=== PATIENT | female | born 1980 | race Caucasian/White ===

== ENCOUNTER → 2025-01-09 | Outpatient (CLI) | payer OTHER, SELFPAY ==
[2025-01-12 07:46] LABS: HPV Reflexed? NOT INDICATED
== END | disposition home or self-care (01) ==
LOC: LABSPEC 10:39
PROVIDERS: Referring Provider Obstetrics & Gynecology; Visit Provider Obstetrics & Gynecology
DX: Z87.410 Personal history of cervical dysplasia (principal)
CPT/HCPCS: 88175; G0145

== ENCOUNTER → 2025-01-10 | Outpatient (CLI) | payer OTHER, SELFPAY ==
[2025-01-10 16:01] LABS: Absolute Lymphocyte Count 3.72 X10^3/uL (0.83-4.51); Absolute Neutrophil Count 7.6 X10^3/uL (2.0-7.7); Basophil# 0.14 X10^3/uL; Basophil% 1.1 % (0-1); Eosinophil# 0.23 X10^3/uL; Eosinophils% 1.9 % (0-5); Hematocrit 44.1 % (37-47); Lymphocyte # 3.72 X10^3/ul (0.83-4.51); Lymphocyte % 30.3 % (19-41); Mean Corpuscular Hgb 31.8 pg (27.0-32.0); Mean Corpuscular Volume 93.4 fL (81-99); Mean Platelet Vol. 12.1 fl (6.2-12.0); Monocyte# 0.61 X10^3/uL; NRBC Flagged by Analyzer 0 % (0-5); Neutrophil # 7.55 X10^3/uL (2.7-7.7); Neutrophil % 61.4 % (47-70); Platelet Count 176 K/mm3 (150-450); RBC Distribution Width CV 13.5 % (11.6-14.6); RBC Distribution Width SD 46.4 fl (35.1-43.9); Red Blood Count 4.72 M/mm3 (4.2-5.4); White Blood Count 12.3 K/mm3 (4.4-11.0)
[2025-01-10 16:35] LABS: Hemoglobin A1c 5.4 % (<=5.6)
[2025-01-10 16:58] LABS: ALB/GLOB Ratio 1.9 RATIO (0.9-2.4); AST(SGOT) 18 U/L (<=31); Alanine Aminotransfer ALT/SGPT 14 U/L (<=34); Albumin, Serum 4.7 g/dL (3.5-5.0); Alkaline Phosphatase 49 U/L (35-104); Anion Gap 12 (5-15); BUN 9 mg/dL (4-19); BUN/Creat Ratio 10.2 RATIO (10-20); Calcium,Total 9.7 mg/dL (7.6-11.0); Carbon Dioxide 24.6 mmol/L (21.0-32.0); Chloride 102 mmol/L (98-108); Creatinine, Serum 0.92 mg/dL (0.70-1.20); EST Glomerular Filtration Rate 78 (>60); Globulin 2.5 g/dL (2.2-4.2); Glucose 95 mg/dL (70-99); Potassium 4.3 mmol/L (3.3-5.1); Protein, Total 7.2 g/dL (5.9-8.4); Sodium Level 139 mmol/L (133-145); Total Bilirubin 0.45 mg/dL (0.00-1.30); Vitamin D,25 Hydroxy 75.6 ng/mL (30-100)
[2025-01-10 18:26] LABS: Cholesterol 177 mg/dL (<=200); High Density Lipoprotein 47 mg/dL; Low Density Lipoprotein Calc. 116 mg/dL; Triglycerides 68 mg/dL; Very Low Density Lipoprotein 14 mg/dL (5-40); cholesterol:hdl ratio screen 3.76
== END | disposition home or self-care (01) ==
LOC: BWCLAB 11:50
PROVIDERS: Referring Provider Obstetrics & Gynecology; Visit Provider Obstetrics & Gynecology
DX: I42.2 Other hypertrophic cardiomyopathy (principal); Z13.29 Encounter for screening for other suspected endocrine disorder; Z13.1 Encounter for screening for diabetes mellitus; Z13.220 Encounter for screening for lipoid disorders; Z13.21 Encounter for screening for nutritional disorder
CPT/HCPCS: 36415; 80053; 80061; 82306; 83036; 84443; 85025

== ENCOUNTER 2025-02-03 06:31 | Day surgery (SDC) | payer OTHER, SELFPAY ==
--- NOTE | 2025-02-02 15:47 | PAT.ANESEVAL ---
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 When Was Last Pacemaker Check QUESTION #4 FULL TEXT: You/Your Family Experience fever (hyperthermia) with Anesthesia Last Oral Intake Last Oral intake: Last Oral Intake NPO since Meds taken in AM with sips of water? 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 Female Yes 02/01/25 14:11 HX of Motion Sickness Yes 02/01/25 14:11 HX of N/V After Surgery No 02/01/25 14:11 Non-Smoker Yes 02/01/25 14:11 Duration of Surgery greater No 02/01/25 14:11 than 60 minutes Number of Risk Factors 3 02/01/25 14:11 PONV Score Moderate Risk 02/01/25 14:11 Height & Weight Height & Weight: Anesthesia: Height & Weight Height 5 ft 1 in 01/11/25 08:42 Respiratory Assessment Respiratory Assessment - motor vehicle examiner: Respiratory Tract Infection Hx - motor vehicle examiner Hx Respiratory Tract Infection No 02/01/25 14:11 STOP Sleep Apnea STOP Sleep Apnea - motor vehicle examiner: STOP Sleep Apnea - motor vehicle examiner Hx Hypertension No 02/01/25 14:11 Hx Sleep Apnea No 02/01/25 14:11 CPAP BIPAP Do you snore loudly (louder No 02/01/25 14:11 than talking or can be heard Do you often feel tired/ No 02/01/25 14:11 fatigued/ sleepy during daytime? Has anyone observed you stop No 02/01/25 14:11 breathing during sleep? STOP Results Negative 02/01/25 14:11 QUESTION #5 FULL TEXT : Do you snore loudly (louder than talking or can be heard through closed doors)? 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 Specify any problems Hx of Preganancy in last 3 No 02/01/25 14:11 Months Nurse Filling Out Transfusion VCHRISTIN 02/01/25 14:11 & Questions: Date: 02/01/25 02/01/25 14:11 Time: 14:12 02/01/25 14:11 Patient unable to answer at this time (ie. confused, unrespo /Reproduction History /Reproductive History - motor vehicle examiner: /Reproductive Hx- motor vehicle examiner Hx Now No 02/01/25 14:11 Gestational Age (in weeks): EDC: Hx Hx Para Hx Section SAB No 02/01/25 14:11 [facility] Medical History (Updated 02/01/25 @ 14:11 by Hoa Bah) Wears contact lenses Wears glasses Post-menopausal Alcohol use Former smoker Cardiology follow-up encounter History of echocardiogram Hypertrophic cardiomyopathy H/O headache Home Medications ?Medication ?Instructions ?Recorded ?Last Taken ?Type omega-3 fatty acids 1,000 mg 1,000 mg PO QDAY 01/04/25 01/26/25 History capsule turmeric 400 mg capsule 400 mg PO DAILY 01/04/25 01/26/25 History vitamin D3 1,250 mcg (50,000 1 cap PO DAILY 01/04/25 01/26/25 History unit)-vitamin K2 200 mcg capsule Saccharomyces boulardii 250 mg 250 mg PO QDAY 01/11/25 Unknown History capsule (Daily Probiotic (S. boulardii)) multivitamin (Daily Multi-Vitamin 1 tab PO DAILY 02/01/25 Unknown History tablet) Allergy/AdvReac Type Severity Reaction Status Date / Time No Known Allergies Allergy Verified 02/01/25 14:02 Family History Mother Colon cancer Cancer of appendix, Onset Age: 57 Father Depression Hypertrophic cardiomyopathy Brother Hypertrophic cardiomyopathy Sister Hypertrophic cardiomyopathy Brother Hypertrophic cardiomyopathy Sister Hypertrophic cardiomyopathy Surgical History (Updated 02/01/25 @ 14:11 by Hoa Bah) History of bunionectomy Hx of hysterectomy Social History Smoking Status: Former smoker alcohol intake: current alcohol intake frequency: holidays/special occasions only substance use type: does not use what type of physical activity do you participate in: running and weight training frequency: 3-4 times per week Audit: Pertinent Findings Pertinent Findings EKG Perinent findings: October 15, 2022. Normal sinus rhythm Echo (EF%) pertinent findings: January 22, 2022. EF 60%. No aortic stenosis noted. Recommendation Anesthesia Recommendation Anesthesia recommendation: OPTIMIZED for anesthesia
[2025-02-03] VITALS (7 sets, daily range): BP systolic 105–124; BP diastolic 70–84; PULSE 63–75; RESP 16; TEMP 36.4–37.2; O2SAT 99–100; BMI 27.1
--- NOTE | 2025-02-03 06:36 | PRE.ANES_ITS ---
ASA Classification* ASA Classification ASA Classification: 2 Assessment & Plan Anesthesia* Anesthesia Assessment Anesthesia Assessment: Discussed sedation and/or anesthesia options, risks, benefits, and alternatives with patient/parents/legal guardian/POA. Questions invited. The patient/parents/legal guardian/POA seems to understand and agrees to proceed with anesthesia plan. Reviewed the physical assessment, medical history, allergy history and patient home medications list prior to surgery/procedure/anesthetic and documented any changes. Performed airway and anesthesia risk assessments. Anesthesia Type Anesthesia Type: MAC Anesthesia Focused Assessment* Airway Assessment Mouth opens: >3 cm Mallampati Score: II Focused Labs Anesthesia Preop lab: CBC WBC 12.3 K/mm3 (4.4-11.0) H 01/10/25 11:50 5 RBC 4.72 M/mm3 (4.2-5.4) 01/10/25 11:50 01/10/25 Hgb 15.0 g/dL (12.0-15.0) 01/10/25 11:50 01/10/25 Hct 44.1 % (37-47) 01/10/25 11:50 01/10/25 Plt Count 176 K/mm3 (150-450) 01/10/25 11:50 01/10/25 CHEMISTRY Potassium 4.3 mmol/L (3.3-5.1) 01/10/25 11:50 01/10/25 Sodium 139 mmol/L (133-145) 01/10/25 11:50 01/10/25 BUN 9 mg/dL (4-19) 01/10/25 11:50 01/10/25 Creatinine 0.92 mg/dL (0.70-1.20) 01/10/25 11:50 01/10/25 Glucose 95 mg/dL (70-99) 01/10/25 11:50 01/10/25 TSH 0.650 uIU/mL (0.300-4.200) 01/10/25 11:50 12/29 11/22 COAG Pre-Assessment Diagnosis/Proposed Procedure Planned Operative Procedure(s): COLONOSCOPY Anesthesia History Anesthesia History - medical transcription editor: Anesthesia History - medical transcription editor Hx Hospitalization No 02/01/25 14:11 Any Problems With Anesthesia No 02/01/25 14:11 Cholinesterase deficiency No 02/01/25 14:11 You/Your Family Experience No 02/01/25 14:11 fever (hyperthermia) with Relationship Recent Exposure to Contagious Disease Does patient have nerve No 02/01/25 14:11 stimulator Patient instructed to have device shut off --Does patient have Pacemaker or ICD? When Was Last Pacemaker Check QUESTION #4 FULL TEXT: You/Your Family Experience fever (hyperthermia) with Anesthesia Last Oral Intake Last Oral intake: Last Oral Intake NPO since Meds taken in AM with sips of water? Meds patient instructed to take am of surgery PONV PONV - medical transcription editor: PONV - medical transcription editor Female Yes 02/01/25 14:11 HX of Motion Sickness Yes 02/01/25 14:11 HX of N/V After Surgery No 02/01/25 14:11 Non-Smoker Yes 02/01/25 14:11 Duration of Surgery greater No 02/01/25 14:11 than 60 minutes Number of Risk Factors 3 02/01/25 14:11 PONV Score Moderate Risk 02/01/25 14:11 Height & Weight Height & Weight: Anesthesia: Height & Weight Height 5 ft 1 in 01/11/25 08:42 Respiratory Assessment Respiratory Assessment - medical transcription editor: Respiratory Tract Infection Hx - medical transcription editor Hx Respiratory Tract Infection No 02/01/25 14:11 STOP Sleep Apnea STOP Sleep Apnea - medical transcription editor: STOP Sleep Apnea - medical transcription editor Hx Hypertension No 02/01/25 14:11 Hx Sleep Apnea No 02/01/25 14:11 CPAP BIPAP Do you snore loudly (louder No 02/01/25 14:11 than talking or can be heard Do you often feel tired/ No 02/01/25 14:11 fatigued/ sleepy during daytime? Has anyone observed you stop No 02/01/25 14:11 breathing during sleep? STOP Results Negative 02/01/25 14:11 QUESTION #5 FULL TEXT : Do you snore loudly (louder than talking or can be heard through closed doors)? Tobacco Use History Tobacco Use History - medical transcription editor: Tobacco Use History - medical transcription editor Tobacco Use Smoking Status Former smoker 02/01/25 14:11 Hx Tobacco Use No 02/01/25 14:11 Years Smoking Packs Smoked per Day Smoking Cessation Date was Yes - quit smoking within 15 02/01/25 14:11 within the last 15 years years Hx Smoking Cessation Date Hx Smoking Cessation Counseling Hematologic Medial History Hematologic Hx - medical transcription editor: Hematologic Medical Hx - slip sheeter Hx of Blood Transfusion No 02/01/25 14:11 Hx of Transfusion in last 3 No 02/01/25 14:11 Months Date of Last Transfusion (if within last 3 months) Ever experience any problems No 02/01/25 14:11 with transfusion(s)? Specify any problems Hx of Preganancy in last 3 No 02/01/25 14:11 Months Nurse Filling Out Transfusion VCHRISTIN 02/01/25 14:11 & Questions: Date: 02/01/25 02/01/25 14:11 Time: 14:12 02/01/25 14:11 Patient unable to answer at this time (ie. confused, unrespo /Reproduction History /Reproductive History - medical transcription editor: /Reproductive Hx- medical transcription editor Hx Now No 02/01/25 14:11 Gestational Age (in weeks): EDC: Hx Hx Para Hx Section SAB No 02/01/25 14:11 PFSH Medical History Wears contact lenses Wears glasses Post-menopausal Alcohol use Former smoker Cardiology follow-up encounter History of echocardiogram Hypertrophic cardiomyopathy H/O headache Home Medications ?Medication ?Instructions ?Recorded ?Last Taken ?Type omega-3 fatty acids 1,000 mg 1,000 mg PO QDAY 01/04/25 01/26/25 History capsule turmeric 400 mg capsule 400 mg PO DAILY 01/04/25 History vitamin D3 1,250 mcg (50,000 1 cap PO DAILY 01/04/25 0 01/26/25 History unit)-vitamin K2 200 mcg capsule Saccharomyces boulardii 250 mg 250 mg PO QDAY 01/11/25 Unknown History capsule (Daily Probiotic (S. boulardii)) multivitamin (Daily Multi-Vitamin 1 tab PO DAILY 02/01 Unknown History tablet) Allergy/AdvReac Type Severity Reaction Status Date / Time No Known Allergies Allergy Verified 02/01/25 14:02 Family History Mother Colon cancer Cancer of appendix, Onset Age: 57 Father Depression Hypertrophic cardiomyopathy Brother Hypertrophic cardiomyopathy Sister Hypertrophic cardiomyopathy Brother Hypertrophic cardiomyopathy Sister Hypertrophic cardiomyopathy Surgical History History of bunionectomy Hx of hysterectomy Social History Smoking Status: Former smoker alcohol intake: current alcohol intake frequency: holidays/special occasions only substance use type: does not use what type of physical activity do you participate in: running and weight training frequency: 3-4 times per week Review of Systems (Anesthesia) ROS Narrative System reviewed and no additional complaints, except as documented.
--- OUTSIDE RECORDS SUMMARY | 2025-02-03 06:36 | XMS RPT_ITS | CCD ---
Author Organization [facility] Care Team Providers Care Saw Grinder Name Role Phone DIAZ, THAN Unavailable Unavailable ORIN, HEIDI Unavailable Unavailable DIAZ, THAN Unavailable Unavailable ORIN, HEIDI Unavailable Unavailable ORIN, HEIDI Unavailable Unavailable Josee, Shreyas L Unavailable Unavailable Unavailable Josee TOPOLOGY PROFESSOR-ACTUARIAL ANALYSTShreyas Primary Care Provider [phone] Josee TOPOLOGY PROFESSOR-ACTUARIAL ANALYSTShreyas L Unavailable JOSEE, SHREYAS L Primary Care Unavailable JOSEE, SHREYAS L Primary Care Unavailable JOSEE, SHREYAS L Attending Unavailable JOSEE, SHREYAS L Primary Care Unavailable JOSEE, SHREYAS L Primary Care Unavailable JOSEE, SHREYAS L Referring Unavailable JOSEE, SHREYAS L Attending Unavailable JOSEE, SHREYAS L Primary Care Unavailable JOSEE, SHREYAS L Referring Unavailable Aby STERLING, Dr. Cabrera Attending Provider Dr. Deborah Badillo MD Referring Provider Arnulfo STERLING, Dr. Jack Last Attending Provider Deborah Badillo Attending Unavailable Deborah Badillo Referring Unavailable Deborah Badillo Attending Unavailable Deborah Badillo Referring Unavailable Jack Arredondo Referring Unavailable Deborah Badillo Primary Care Unavailable Jack Arredondo Attending Unavailable Jack Arredondo Attending Unavailable Deborah Badillo Attending Unavailable Allergies Allergy Classification Reported Allergen(s) Allergy Type Date of Onset Reaction(s) Facility (2 sources) ALLERGIES NOT ON FILE; Translations: [ALLERGIES NOT ON FILE] Propensity to adverse reactions (disorder) [facility] Medications Current Medications Medication Drug Class(es) Dates Sig (Normalized) Sig (Original) fexofenadine hydrochloride 180 mg oral tablet (1 source) Histamine-1 Receptor Antagonist Start: 05-21-2023 End: 05-20-2024 take 1 tablet by mouth once daily fexofenadine (Noreen) 180 mg tablet Indications: Urticaria Take 1 tablet (180 mg) by mouth once daily. 30 tablet 5 05/21/2023 05/20/2024 Active Edison-3 Fatty Acids 1,000 mg capsule (3 sources) Start: 01-04-2025 take 1 capsule by mouth once daily Edison-3 Fatty Acids 1,000 mg capsule Active 1000 mg PO daily January 04, 2025 12:00am saccharomyces boulardii 250 mg oral capsule (3 sources) Start: 01-11-2025 take 1 capsule by mouth once daily Saccharomyces Boulardii (Daily Probiotic (S. Boulardii)) 250 mg capsule Active 250 mg PO daily January 11, 2025 12:00am Turmeric extract (3 sources) Start: 01-04-2025 Turmeric 400 mg capsule Active mg PO January 04, 2025 12:00am Vitamin D3-Vitamin K2 (3 sources) Start: 01-04-2025 Vitamin D3-Vitamin K2 1,250-200 mcg capsule Active NMA PO January 04, 2025 12:00am Completed/Discontinued Medications Medication Drug Class(es) Dates Sig (Normalized) Sig (Original) 12 hr buPROPion hydrochloride 150 mg extended release oral tablet (2 sources) Aminoketone Start: 03-27-2022 take 1 tablet by mouth once daily buPROPion HCl ER (SR) 150 MG Oral Tablet Extended Release 12 Hour Take 1 tablet daily Quantity: 30 Refills: 2 Ordered: 27-Mar-2022 Shreyas Campbell Start : 27-Mar-2022 Active Multi-Vitamins TABS (8 sources) Multi-Vitamins TABS Quantity: 0 Refills: 0 Ordered: 31-Dec-2021 DO Active phentermine hydrochloride 37.5 mg oral capsule (4 sources) Sympathomimetic Amine Anorectic Start: 01-28-2022 take 1 capsule by mouth once daily before breakfast Phentermine HCl - 37.5 MG Oral Capsule TAKE 1 CAPSULE EVERY MORNING BEFORE BREAKFAST. Quantity: 30 Refills: 0 Ordered: 21-Apr-2022 Shreyas Campbell Start : 28-Jan-2022 Active Problems Active Problems Problem Classification Problem Date Documented Da te Episodic/Chronic Administrative/social admission (8 sources) Patient encounter status; Translations: [Other specified counseling] 01-11-2025 Episodic Allergic reactions (3 sources) Urticaria; Translations: [Urticaria, unspecified] Onset: 05-21-2023 05-21-2023 Episodic Anxiety disorders (2 sources) Anxiety; Translations: [Anxiety state, unspecified] Chronic Coma; stupor; and brain damage (3 sources) Daytime somnolence; Translations: [Somnolence] Onset: 05-21-2023 05-21-2023 Episodic Nutritional deficiencies (3 sources) Vitamin B deficiency; Translations: [Vitamin B deficiency, unspecified] Onset: 05-20-2023 05-20-2023 Episodic Other female genital disorders (1 source) Personal history of cervical dysplasia; Translations: [Personal history of cervical dysplasia] Onset: 01-12-2025 Episodic Other injuries and conditions due to external causes (2 sources) Injury of hand; Translations: [Hand, except finger injury] Episodic Other lower respiratory disease (4 sources) Snoring; Translations: [Snoring] 05-21-2023 Episodic Other lower respiratory disease (2 sources) Snoring; Translations: [Snoring] Onset: 05-21-2023 Episodic Other non-traumatic joint disorders (8 sources) Hip pain; Translations: [Pain in joint, pelvic region and thigh] Episodic Other nutritional; endocrine; and metabolic disorders (2 sources) Body mass index 25-29 - overweight; Translations: [Body Mass Index 27.0-27.9, adult] Episodic Other nutritional; endocrine; and metabolic disorders (2 sources) Overweight in adulthood with body mass index of 25 or more but less than 30; Translations: [Body Mass Index 27.0-27.9, adult] Episodic Other screening for suspected conditions (not mental disorders or infectious disease) (1 source) Encounter for screening mammogram for malignant neoplasm of breast; Translations: [Encounter for screening mammogram for malignant neoplasm of breast] Onset: 01-09-2025 Episodic Other upper respiratory infections (8 sources) Acute upper respiratory infection; Translations: [Acute upper respiratory infections of unspecified site] Episodic Elvira-; endo-; and myocarditis; cardiomyopathy (except that caused by tuberculosis or sexually transmitted disease) (12 sources) Hypertrophic cardiomyopathy; Translations: [Other hypertrophic cardiomyopathy] Onset: 11-10-2022 11-10-2022 Chronic Residual codes; unclassified (8 sources) Intolerant of ambient temperature; Translations: [Other general symptoms] Episodic Residual codes; unclassified (8 sources) Family history of cancer of colon; Translations: [Family history of malignant neoplasm of digestive organs] 01-09-2025 Episodic Substance-related disorders (1 source) Nicotine dependence; Translations: [Nicotine dependence, cigarettes, uncomplicated] Onset: 06-22-2018 05-20-2023 Chronic Unclassified (6 sources) Encounter for screening for malignant neoplasm of colon; Translations: [Z12.11 - Encounter for screening for malignant neoplasm of colon] Unclassified (3 sources) R06.83 - Snoring Past or Other Problems Problem Classification Problem Date Documented Da te Episodic/Chronic Malaise and fatigue (2 sources) Other fatigue; Translations: [Other fatigue] Onset: 11-21-2022 Episodic Other nutritional; endocrine; and metabolic disorders (9 sources) Weight gain; Translations: [Abnormal weight gain] Onset: 11-10-2022 11-10-2022 Episodic Results Test Name Value Interpretation Reference Range Facility MR/Yasmine 02-02-2025 MR/PAT.[facility] Medical Records Department [address] [place] [address] PAT - Anesthesia 02/02/25 1547 MR#: [id number] Acct: [id number] Name: MAYO HORTA Rep #: [id number] : 1980 44 From: Juan Luis Bullock MD PCP: Dr. 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 When Was Last Pacemaker Check QUESTION #4 FULL TEXT: You/Your Family Experience fever (hyperthermia) with Anesthesia Last Oral Intake Last Oral intake: Last Oral Intake NPO since Meds taken in AM with sips of water? Meds patient instructed to take am of surgery PONV PONV - sustainability project coordinator: PONV - sustainability project coordinator Female Yes 02/01/25 14:11 HX of Motion Sickness Yes 02/01/25 14:11 HX of N/V After Surgery No 02/01/25 14:11 Non-Smoker Yes 02/01/25 14:11 Duration of Surgery greater No 02/01/25 14:11 than 60 minutes Number of Risk Factors 3 02/01/25 14:11 PONV Score Moderate Risk 02/01/25 14:11 Height Weight Height Weight: Anesthesia: Height Weight Height 5 ft 1 in 01/11/25 08:42 Respiratory Assessment Respiratory Assessment - sustainability project coordinator: Respiratory Tract Infection Hx - sustainability project coordinator Hx Respiratory Tract Infection No 02/01/25 14:11 STOP Sleep Apnea STOP Sleep Apnea - sustainability project coordinator: STOP Sleep Apnea - sustainability project coordinator Hx Hypertension No 02/01/25 14:11 Hx Sleep Apnea No 02/01/25 14:11 CPAP BIPAP Do you snore loudly (louder No 02/01/25 14:11 than talking or can be heard Do you often feel tired/ No 02/01/25 14:11 fatigued/ sleepy during daytime? Has anyone observed you stop No 02/01/25 14:11 breathing during sleep? STOP Results Negative 02/01/25 14:11 QUESTION #5 FULL TEXT : Do you snore loudly (louder than talking or can be heard through closed doors)? 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 Specify any problems Hx of Preganancy in last 3 No 02/01/25 14:11 Months Nurse Filling Out Transfusion VENUS 02/01/25 14:11 Questions: Date: 02/01/25 02/01/25 14:11 Time: 14:12 02/01/25 14:11 Patient unable to answer at this time (ie. confused, unrespo /Reproduction History /Reproductive History - sustainability project coordinator: /Reproductive Hx- sustainability project coordinator Hx Now No 02/01/25 14:11 Gestational Age (in weeks): EDC: Hx Hx Para Hx Section SAB No 02/01/25 14:11 [facility] Medical History (Updated 02/01/25 @ 14:11 by Hoa Bah) Wears contact lenses Wears glasses Post-menopausal Alcohol use Former smoker Cardiology follow-up encounter History of echocardiogram Hypertrophic cardiomyopathy H/O headache Home Medications ???Medication ???Instructions ???Recorded ???Last Taken ???Type omega-3 fatty acids 1,000 mg 1,000 mg PO QDAY 01/04/25 01/26/25 History capsule turmeric 400 mg capsule 400 mg PO DAILY 01/04/25 01/26/25 History vitamin D3 1,250 mcg (50,000 1 cap PO DAILY 01/04/25 01/26/25 H istory unit)-vitamin K2 200 mcg capsule Saccharomyces boulardii 250 mg 250 mg PO QDAY 01/11/25 Unknown Hi story capsule (Daily Probiotic (S. boulardii)) multivitamin (Daily Multi-Vitamin 1 tab PO DAILY 02/01/25 Unknown H istory tablet) Allergy/AdvReac Type Severity Reaction Status Date / Time No Known Allergies Allergy Verified 02/01/25 14:02 (more content not included)... Normal [facility] PAP I-G w/rfx hrHPV-Aptimaon 01-11-2025 ADEQ Comment Normal . [facility] Comment on above: Order Comment: Speci men Comment: [id number] Specimen Comment: No. of containers..01 ThinPrep Vial Result Comment: Sati sfactory for evaluation. No endocervical cells are present. This is consistent with a history of hysterectomy. Performed By: #### L 7400.0353 #### [facility] [address] [place], [place], [address] COMM . Normal . [facility] Comment on above: Order Comment: Speci men Comment: [id number] Specimen Comment: No. of containers..01 ThinPrep Vial Performed By: #### L 7400.0353 #### [facility] [address] [place], [address] COMMENT Comment Normal . [facility] Comment on above: Order Comment: Speci men Comment: [id number] Specimen Comment: No. of containers..01 ThinPrep Vial Result Comment: This liquid based ThinPrep(R) pap test was screened with the use of an image guided system. Performed By: #### L 7400.0353 #### [facility] [address] [place], [address] DIAG Comment Normal . [facility] Comment on above: Order Comment: Speci men Comment: [id number] Specimen Comment: No. of containers..01 ThinPrep Vial Result Comment: NEGA TIVE FOR INTRAEPITHELIAL LESION OR MALIGNANCY. Performed By: #### L 7400.0353 #### [facility] [address] [place], [address] HPV RFLX Comment Normal . [facility] Comment on above: Order Comment: Speci men Comment: [id number] Specimen Comment: No. of containers..01 ThinPrep Vial Result Comment: The HPV DNA reflex criteria were not met with this specimen result therefore, no HPV testing was performed. Performed at: [address] [id number] Automatic Casting Machine Operator: Amy Ball MD, Phone: [phone] Performed By: #### L 7400.0353 #### [facility] [address] [place], [address] PAPSMR Comment Normal . [facility] Comment on above: Order Comment: Speci men Comment: [id number] Specimen Comment: No. of containers..01 ThinPrep Vial Result Comment: The Pap smear is a screening test designed to aid in the detection of premalignant and malignant conditions of the uterine cervix. It is not a diagnostic procedure and should not be used as the sole means of detecting cervical cancer. Both false-positive and false-negative reports do occur. Performed By: #### L 7400.0353 #### [facility] [address] [place], [place], [address] PERFORM Comment Normal . [facility] Comment on above: Order Comment: Speci men Comment: [id number] Specimen Comment: No. of containers..01 ThinPrep Vial Result Comment: Samara Pratt, Audio/Visual Operator (ASCP) Performed By: #### L 7400.0353 #### [facility] [address] [place], [place], [address] Surgery Visit Reporton 01-11 Surgery Visit Report [facility] [address] [place] [address] OFFICE VISIT Date of Service: 01/11/25 MR#: [id number] Acct: [id number] Name: MAYO HORTA Rep #: [id number] : 1980 Provider: Dr. Jack gunter MD Age/Sex: 44/F Location: [facility] Status: Signed Intake Vital Signs 01/09/25 08:02 01/11/25 08:42 Height 5 ft 1 in 5 ft 1 in Weight: 149 lb BMI 28.1 BP 117/77 Blood Pressure Location Rt brachial Position Sitting Respiration 17 Pulse 80 Pulse Source Monitor Pulse Oximetry (%) 98 Oxygen Delivery Method room air Intake Visit Reasons: COLONOSCOPY Chief Complaint: colonoscopy Is patient in pain?: No Allergies No Known Allergies Allergy (Verified 01/11/25 08:43) Medications ???Medication ???Instructions ???Recorded ???Confirmed ???Type omega-3 fatty acids 1,000 mg 1,000 mg PO QDAY 01/04/25 01/11/25 History capsule turmeric 400 mg capsule mg PO 01/04/25 01/11/25 History vitamin D3 1,250 mcg (50,000 cap PO 01/04/25 01/11/25 History unit)-vitamin K2 200 mcg capsule Saccharomyces boulardii 250 mg 250 mg PO QDAY 01/11/25 01/11/25 H istory capsule (Daily Probiotic (S. boulardii)) PFSH Medical History Hypertrophic cardiomyopathy H/O headache Surgical History Hx of hysterectomy Family History Mother Colon cancer Cancer of appendix, Onset Age: 57 Father Depression Hypertrophic cardiomyopathy Brother Hypertrophic cardiomyopathy Sister Hypertrophic cardiomyopathy Brother Hypertrophic cardiomyopathy Sister Hypertrophic cardiomyopathy Social History Smoking Status: Former smoker alcohol intake: current alcohol intake frequency: holidays/special occasions only substance use type: does not use what type of physical activity do you participate in: running and weight training frequency: 3-4 times per week HPI HPI HPI: The patient is a 44-year-old female who presents today to schedule a colonoscopy. This will be her first colonoscopy. She does have a family history of appendiceal cancer. Her mom of appendiceal cancer in her 50s. Patient also has a family history of cardiomyopathy as well. She herself denies any significant GI issues or problems other than some occasional right upper quadrant pain that she attributes to her gallbladder. ROS General General: Yes weight change and fatigue; No appetite, colon cancer, breast cancer or weakness HEENT HEENT: No difficulty swallowing, eye injury, eye surgery, swollen glands or hoarseness Endo Endocrine: No thyroid disease, diabetes mellitus, thyroid cancer, Hair loss, heat intolerance or cold intolerance Skin Skin: No rash or changing moles Musc Musculoskeletal: No back problems, arthritis, rheumatoid arthritis, gout or joint pain Cardio Cardiovascular: No murmur, pacemaker, heart disease, atrial fibrillation, high blood pressure, heart attack, heart stent, palpitations, shortness of breath with exertion or chest pain Additional Details: HOCM Psych Psychiatric: No depression, anxiety or hearing voices Resp Respiratory: No shortness of breath, No sleep apnea, No cough, No COPD, No asthma, No emphysema and No wheezing Gastro Gastrointestinal: Yes abdominal pain, No nausea or vomiting, No diarrhea, No constipation, No blood in stool, Yes acid reflux, No hemorrhoids, No ulcers, No gallbladder problem and No black,tarry stoo ls Eduardo Hematologic: No blood thinners, No blood disorders, No bleeding, No anemia and No blood clots Neuro Neurologic: No system reviewed and no additional complaints, except as documented, No as per HPI, No abnormal gait, No abnormal hearing, No abnormal movements, No abnormal speech, No behavioral changes, No burning sensations, No confusion, No convulsions, No disequilibrium, No dizziness, No localized weakness, No frequent falls, No headache(s), No lack of coordination, No loss of vision, No memory loss, Yes numbness, No other visual disturbances, No radicular pain, No restless legs, No sensory deficit, No syncope, Yes tingling, No tremor(s), No weakness and No other Exam Const General: cooperative, healthy appearing, comfortable and no acute distress Assessment and Plan Assessment and Plan (1) Encounter for screening for malignant neoplasm of colon: Status: Acute (2) Family history of colon cancer: Status: Acute Plan: The patient is a 44-year-old female with a family history of appendiceal cancer. She is in need of a screening colonoscopy. This will be her first colonoscopy. We discussed the details of the pl anned (more content not included)... Normal [facility] Absolute lymphocyte countOrd ered By: Deborah Badillo on 01-10-2025 Lymphocytes Auto (Unsp spec) [#/Vol] 3.72 10*3/uL 0.83-4.51 [facility] Absolute neutrophil countOrd ered By: Deborah Badillo on 01-10-2025 Neutrophils (Bld) [#/Vol] 7.6 10*3/uL 2.0-7.7 [facility] Anion gap in Serum or Plasma Ordered By: Deborah Badillo on 01-10-2025 Anion gap [Moles/Vol] 12 mmol/L 5-15 [facility] Automated lymphocyte count a s percentage of total leukocytesOrdered By: Deborah Badillo on 01-10-2025 Lymphocytes/100 WBC Auto (Unsp spec) 30.3 % - [facility] BUN/creatinine ratioOrdered By: Deborah Badillo on 01-10-2025 Urea nitrogen/Creatinine [Mass ratio] 10.2 mg/mg 10- [facility] Basophil percentageOrdered B y: Deborah Badillo on 01-10-2025 Basophils/100 WBC (Bld) 1.1 % High 0-1 [facility] Bilirubin, totalOrdered By: Deborah Badillo on 01-10-2025 Bilirubin [Mass/Vol] 0.45 mg/dL 0.00-1.30 [facility] CBC W/Diff, Automatedon 12-29 Absolute Lymph 3.72 X10 3/uL Normal 0.83-4.51 [facility] Comment on above: Performed By: #### L 500.4100, L506.1001, L501.9985, L501.9520, L100.0100, L500.4050 #### [facility] [address] [place], [address] Absolute Neut 7.6 X10 3/uL Normal 2.0-7.7 [facility] Comment on above: Performed By: #### L 500.4100, L506.1001, L501.9985, L501.9520, L100.0100, L500.4050 #### [facility] [address] [place], [address] Basophils/100 WBC (Bld) 1.1 % High 0-1 [facility] Comment on above: Performed By: #### L 500.4100, L506.1001, L501.9985, L501.9520, L100.0100, L500.4050 #### [facility] [address] [place], [address] Eosinophils/100 WBC (Bld) 1.9 % Normal 0-5 [facility] Comment on above: Performed By: #### L 500.4100, L506.1001, L501.9985, L501.9520, L100.0100, L500.4050 #### [facility] [address] [place], [address] Erythrocyte distribution width (RBC) [Ratio] 13.5 % Normal 11.6-14.6 [facility] Comment on above: Performed By: #### L 500.4100, L506.1001, L501.9985, L501.9520, L100.0100, L500.4050 #### [facility] [address] [place], [address] Hematocrit (Bld) [Volume fraction] 44.1 % Normal 37-47 [facility] Comment on above: Performed By: #### L 500.4100, L506.1001, L501.9985, L501.9520, L100.0100, L500.4050 #### [facility] [address] [place], [address] Hemoglobin (Bld) [Mass/Vol] 15.0 g/dL Normal 12.0-15.0 [facility] Comment on above: Performed By: #### L 500.4100, L506.1001, L501.9985, L501.9520, L100.0100, L500.4050 #### [facility] [address] [place], [address] IG% 0.300 Normal 0.0-0.9 [facility] Comment on above: Result Comment: IG% - Immature Granulocytes (promyelocytes, myelocytes and metamyelocytes) > 1% indicates that a LEFT SHIFT is Present. Performed By: #### L 500.4100, L506.1001, L501.9985, L501.9520, L100.0100, L500.4050 #### [facility] [address] [place], [address] Lymphocytes/100 WBC (Bld) 30.3 % Normal 19-41 [facility] Comment on above: Performed By: #### L 500.4100, L506.1001, L501.9985, L501.9520, L100.0100, L500.4050 #### [facility] [address] [place], [address] MCH (RBC) [Entitic mass] 31.8 pg Normal 27.0-32.0 [facility] Comment on above: Performed By: #### L 500.4100, L506.1001, L501.9985, L501.9520, L100.0100, L500.4050 #### [facility] [address] [place], [address] MCHC (RBC) [Mass/Vol] 34.0 g/dL Normal 32-36 [facility] Comment on above: Performed By: #### L 500.4100, L506.1001, L501.9985, L501.9520, L100.0100, L500.4050 #### [facility] [address] [place], [address] MCV (RBC) [Entitic vol] 93.4 fL Normal 81-99 [facility] Comment on above: Performed By: #### L 500.4100, L506.1001, L501.9985, L501.9520, L100.0100, L500.4050 #### [facility] [address] [place], [address] Monocytes/100 WBC (Bld) 5.0 % Normal 0-10 [facility] Comment on above: Performed By: #### L 500.4100, L506.1001, L501.9985, L501.9520, L100.0100, L500.4050 #### [facility] [address] [place], [address] Neutrophils/100 WBC (Bld) 61.4 % Normal 47-70 [facility] Comment on above: Performed By: #### L 500.4100, L506.1001, L501.9985, L501.9520, L100.0100, L500.4050 #### [facility] [address] [place], [address] Nucleated RBC (Bld) [#/Vol] 0 10*3/uL Normal 0-5 [facility] Comment on above: Performed By: #### L 500.4100, L506.1001, L501.9985, L501.9520, L100.0100, L500.4050 #### [facility] [address] [place], [address] Platelet mean volume (Bld) [Entitic vol] 12.1 fL High 6.2-12.0 [facility] Comment on above: Performed By: #### L 500.4100, L506.1001, L501.9985, L501.9520, L100.0100, L500.4050 #### [facility] [address] [place], [address] Platelets (Bld) [#/Vol] 176 10*3/uL Normal 150-450 [facility] Comment on above: Performed By: #### L 500.4100, L506.1001, L501.9985, L501.9520, L100.0100, L500.4050 #### [facility] [address] [place], [address] RBC (Bld) [#/Vol] 4.72 10*6/uL Normal 4.2-5.4 [facility] Comment on above: Performed By: #### L 500.4100, L506.1001, L501.9985, L501.9520, L100.0100, L500.4050 #### [facility] [address] [place], [address] RDW SD 46.4 fl High 35.1-43.9 [facility] Comment on above: Performed By: #### L 500.4100, L506.1001, L501.9985, L501.9520, L100.0100, L500.4050 #### [facility] [address] [place], [address] WBC (Bld) [#/Vol] 12.3 10*3/uL High 4.4-11.0 [facility] Comment on above: Performed By: #### L 500.4100, L506.1001, L501.9985, L501.9520, L100.0100, L500.4050 #### [facility] [address] [place], [address] Calculated very low density lipoprotein (VLDL) cholesterol measurementOrdered By: Deborah Badillo on 01-10-2025 Calculated very low density lipoprotein (VLDL) cholesterol measurement 14 mg/dL 5-40 [facility] Carbon dioxide, total [Moles /volume] in Central venous bloodOrdered By: Deborah Badillo on 01-10-2025 CO2 [Moles/Vol] 24.6 mmol/L 21.0-32.0 [facility] Chloride assayOrdered By: Crispin Badillo on 01-10-2025 Chloride [Moles/Vol] 102 mmol/L 98-108 [facility] Comprehensive Metabolic Prof ilon 01-10-2025 Albumin [Mass/Vol] 4.7 g/dL Normal 3.5-5.0 [facility] Comment on above: Performed By: #### L 500.4100, L506.1001, L501.9985, L501.9520, L100.0100, L500.4050 #### [facility] [address] [place], [address] Albumin/Globulin [Mass ratio] 1.9 {ratio} Normal 0.9-2.4 [facility] Comment on above: Performed By: #### L 500.4100, L506.1001, L501.9985, L501.9520, L100.0100, L500.4050 #### [facility] [address] [place], [address] ALK PHOS 49 U/L Normal 35-104 [facility] Comment on above: Performed By: #### L 500.4100, L506.1001, L501.9985, L501.9520, L100.0100, L500.4050 #### [facility] [address] [place], [address] ALT [Catalytic activity/Vol] 14 U/L Normal <=34 [facility] Comment on above: Performed By: #### L 500.4100, L506.1001, L501.9985, L501.9520, L100.0100, L500.4050 #### [facility] [address] [place], [address] AST [Catalytic activity/Vol] 18 U/L Normal <=31 [facility] Comment on above: Performed By: #### L 500.4100, L506.1001, L501.9985, L501.9520, L100.0100, L500.4050 #### [facility] [address] [place], [address] Bilirubin [Mass/Vol] 0.45 mg/dL Normal 0.00-1.30 [facility] Comment on above: Performed By: #### L 500.4100, L506.1001, L501.9985, L501.9520, L100.0100, L500.4050 #### [facility] [address] [place], [address] BUN/CRE 10.2 RATIO Normal 10-20 [facility] Comment on above: Performed By: #### L 500.4100, L506.1001, L501.9985, L501.9520, L100.0100, L500.4050 #### [facility] [address] [place], [address] Calcium [Mass/Vol] 9.7 mg/dL Normal 7.6-11.0 [facility] Comment on above: Performed By: #### L 500.4100, L506.1001, L501.9985, L501.9520, L100.0100, L500.4050 #### [facility] [address] [place], [address] Chloride [Moles/Vol] 102 mmol/L Normal 98-108 [facility] Comment on above: Performed By: #### L 500.4100, L506.1001, L501.9985, L501.9520, L100.0100, L500.4050 #### [facility] [address] [place], [address] CO2 [Moles/Vol] 24.6 mmol/L Normal 21.0-32.0 [facility] Comment on above: Performed By: #### L 500.4100, L506.1001, L501.9985, L501.9520, L100.0100, L500.4050 #### [facility] [address] [place], [address] Creatinine [Mass/Vol] 0.92 mg/dL Normal 0.70-1.20 [facility] Comment on above: Performed By: #### L 500.4100, L506.1001, L501.9985, L501.9520, L100.0100, L500.4050 #### [facility] [address] [place], [address] GAP 12 Normal 5-15 [facility] Comment on above: Performed By: #### L 500.4100, L506.1001, L501.9985, L501.9520, L100.0100, L500.4050 #### [facility] [address] [place], [address] GFR/1.73 sq M.predicted among non-blacks MDRD (S/P/Bld) [Vol rate/Area] 78 mL/min/{1.73_m2} Normal >60 [facility] Comment on above: Result Comment: mL/m in/1.73m2 CKD-EPI Creatinine Equation (2020) Performed By: #### L 500.4100, L506.1001, L501.9985, L501.9520, L100.0100, L500.4050 #### [facility] [address] [place], [address] Globulin (S) [Mass/Vol] 2.5 g/dL Normal 2.2-4.2 [facility] Comment on above: Performed By: #### L 500.4100, L506.1001, L501.9985, L501.9520, L100.0100, L500.4050 #### [facility] [address] [place], [address] Glucose [Mass/Vol] 95 mg/dL Normal 70-99 [facility] Comment on above: Performed By: #### L 500.4100, L506.1001, L501.9985, L501.9520, L100.0100, L500.4050 #### [facility] [address] [place], [address] Potassium [Moles/Vol] 4.3 mmol/L Normal 3.3-5.1 [facility] Comment on above: Performed By: #### L 500.4100, L506.1001, L501.9985, L501.9520, L100.0100, L500.4050 #### [facility] [address] [place], [address] Sodium [Moles/Vol] 139 mmol/L Normal 133-145 [facility] Comment on above: Performed By: #### L 500.4100, L506.1001, L501.9985, L501.9520, L100.0100, L500.4050 #### [facility] [address] [place], [address] T PROT 7.2 g/dL Normal 5.9-8.4 [facility] Comment on above: Performed By: #### L 500.4100, L506.1001, L501.9985, L501.9520, L100.0100, L500.4050 #### [facility] [address] [place], [address] Urea nitrogen [Mass/Vol] 9 mg/dL Normal 4-19 [facility] Comment on above: Performed By: #### L 500.4100, L506.1001, L501.9985, L501.9520, L100.0100, L500.4050 #### [facility] [address] [place], [address] Eosinophil percentageOrdered By: Deborah Badillo on 01-10-2025 Eosinophils/100 WBC (Bld) 1.9 % 0-5 [facility] Erythrocyte distribution wid th ratioOrdered By: Deborah Badillo on 01-10-2025 Erythrocyte distribution width (RBC) [Ratio] 13.5 % 11.6-14.6 [facility] Erythrocyte distribution wid th standard deviationOrdered By: Deboarh Badillo on 01-10-2025 Erythrocyte distribution width (RBC) [Ratio] 46.4 fl High 35.1-43.9 [facility] Glomerular filtration rate ( GFR) estimation/1.73 sq m using serum, plasma, or whole bOrdered By: Deborah Badillo on 01-10-2025 GFR/1.73 sq M.predicted among non-blacks MDRD (S/P/Bld) [Vol rate/Area] 78 mL/min/{1.73_m2} >60 [facility] Comment on above: mL/min/1.73m2 CKD-EP I Creatinine Equation (2020) Hematocrit Auto (Bld) [Volum e fraction]Ordered By: Deborah Badillo on 01-10-2025 Hematocrit (Bld) [Volume fraction] 44.1 % 37-47 [facility] Hemoglobin A1con 01-10-2025 HbA1c (Bld) [Mass fraction] 5.4 % Normal <=5.6 [facility] Comment on above: Result Comment: Norm al < 5.7 % Prediabetic 5.7 - 6.4 % Diabetic >or= 6.5 % Please note range changes. Performed By: #### L 500.4100, L506.1001, L501.9985, L501.9520, L100.0100, L500.4050 #### [facility] [address] [place] [address]. [place], [address] Hemoglobin A1c percentageOrd ered By: Deborah Badillo on 01-10-2025 HbA1c (Bld) [Mass fraction] 5.4 % <5.7 [facility] Comment on above: Normal < 5.7 % Predi abetic 5.7 - 6.4 % Diabetic >or= 6.5 % Please note range changes. Hemoglobin measurementOrdere d By: Deborah Badillo on 01-10-2025 Hemoglobin (Bld) [Mass/Vol] 15.0 g/dL 12.0-15.0 [facility] Immature granulocytes/100 WB C Auto (Bld)Ordered By: Deborah Badillo on 01-10-2025 Immature granulocytes/100 WBC (Bld) 0.300 % 0.0-0.9 [facility] Comment on above: IG% - Immature Granu locytes (promyelocytes, myelocytes and metamyelocytes) > 1% indicates that a LEFT SHIFT is Present. LDL calc ser/plasOrdered By: Deborah Badillo on 01-10-2025 Cholesterol in LDL [Mass/Vol] 116 mg/dL [facility] Comment on above: Szotiqfrwj=543-734 m g/dL & Higher Andn=811 mg/dL or greater Laboratory - Chemistry and C hemistry - challengeOrdered By: Deborah Badillo on 01-10-2025 AST [Catalytic activity/Vol] 18 U/L <32 [facility] Lipid Profileon 01-10-2025 CHOL:HDL 3.76 Normal [facility] Comment on above: Performed By: #### L 500.4100, L506.1001, L501.9985, L501.9520, L100.0100, L500.4050 #### [facility] [address] [place], [address] Cholesterol [Mass/Vol] 177 mg/dL Normal <=200 [facility] Comment on above: Result Comment: Chol esterol level, Desirable <200 mg/dL Borderline high cholesterol 200-239 mg/dL High cholesterol >=240 mg/dL Recommendations of the NCEP Adult Treatment Panel for the following risk-cutoff thresholds for the [place] population. Performed By: #### L 500.4100, L506.1001, L501.9985, L501.9520, L100.0100, L500.4050 #### [facility] [address] [place], [address] Cholesterol in HDL [Mass/Vol] 47 mg/dL Normal [facility] Comment on above: Result Comment: Sugar onal Cholesterol Education Program (NCEP) guidelines: <40 mg/dL: Low HDL-cholesterol (major risk factor for CHD) >= 60 mg/dL: High HDL-cholesterol (negative risk factor for CHD) HDL-cholesterol is affected by a number of factors, e.g. smoking, exercise, hormones, sex and age. Performed By: #### L 500.4100, L506.1001, L501.9985, L501.9520, L100.0100, L500.4050 #### [facility] [address] [place], [address] Cholesterol in LDL [Mass/Vol] 116 mg/dL Normal [facility] Comment on above: Result Comment: Bord rotagp=822-129 mg/dL Higher Xdtq=462 mg/dL or greater Performed By: #### L 500.4100, L506.1001, L501.9985, L501.9520, L100.0100, L500.4050 #### [facility] [address] [place], [address] Cholesterol in VLDL [Mass/Vol] 14 mg/dL Normal 5-40 [facility] Comment on above: Performed By: #### L 500.4100, L506.1001, L501.9985, L501.9520, L100.0100, L500.4050 #### [facility] [address] [place], [address] Triglyceride [Mass/Vol] 68 mg/dL Normal [facility] Comment on above: Result Comment: The drugs N-Acetylcysteine and Metamizole may falsely depress this assay. Normal range: <150 mg/dL Borderline High: 150-199 mg/dL High: 200-499 mg/dL Very High: >500 mg/dL Performed By: #### L 500.4100, L506.1001, L501.9985, L501.9520, L100.0100, L500.4050 #### [facility] [address] [place], [place], [id number] MCV (mean corpuscular volume ) determinationOrdered By: Deborah Badillo on 01-10-2025 MCV (RBC) [Entitic vol] 93.4 fL 81-99 [facility] Mean corpuscular hemoglobin (MCH) determinationOrdered By: Deborah Badillo on 01-10-2025 MCH (RBC) [Entitic mass] 31.8 pg 27.0-32.0 [facility] Mean corpuscular hemoglobin concentration (MCHC) determinationOrdered By: Deborah Badillo on 01-10-2025 MCHC (RBC) [Mass/Vol] 34.0 g/dL 32-36 [facility] Mean platelet volume determi nationOrdered By: Deborah Badillo on 01-10-2025 Platelet mean volume (Bld) [Entitic vol] 12.1 fL High 6.2-12.0 [facility] Monocyte percentageOrdered B y: Deborah Badillo on 01-10-2025 Monocytes/100 WBC (Bld) 5.0 % 0-10 [facility] Neutrophil percentageOrdered By: Deborah Badillo on 01-10-2025 Neutrophils/100 WBC (Bld) 61.4 % 47-70 [facility] Nucleated red blood cell per centageOrdered By: Deborah Badillo on 01-10-2025 Nucleated RBC/100 WBC (Bld) [Ratio] 0 % 0-5 [facility] Platelet countOrdered By: Crispin Badillo on 01-10-2025 Platelets (Bld) [#/Vol] 176 10*3/uL 150-450 [facility] Potassium measurement (mass/ volume)Ordered By: Deborah Badillo on 01-10-2025 Potassium (Unsp spec) [Mass/Vol] 4.3 mmol/L 3.3-5.1 [facility] RBC Auto (Bld) [#/Vol]Ordere d By: Deborah Badillo on 01-10-2025 RBC (Bld) [#/Vol] 4.72 10*6/uL 4.2-5.4 [facility] Screening total cholesterol/ high density lipoprotein (HDL) cholesterol ratioOrdered By: Deborah Badillo on 01-10-2025 Cholesterol.total/Chol esterol in HDL [Mass ratio] 3.76 {ratio} [facility] Serum creatinine measurement (mass/volume)Ordered By: Deborah Badillo on 01-10-2025 Creatinine [Mass/Vol] 0.92 mg/dL 0.70-1.20 [facility] Serum globulin measurementOr dered By: Deborah Badillo on 01-10-2025 Globulin (S) [Mass/Vol] 2.5 g/dL 2.2-4.2 [facility] Serum glucose measurement (m ass/volume)Ordered By: Deborah Badillo on 01-10-2025 Glucose [Mass/Vol] 95 mg/dL 70-99 [facility] Serum or plasma alanine diaz otransferase (ALT) measurementOrdered By: Deborah Badillo on 01-10-2025 ALT [Catalytic activity/Vol] 14 U/L <35 [facility] Serum or plasma albumin chris urement (mass/volume)Ordered By: Deborah Badillo on 01-10-2025 Albumin [Mass/Vol] 4.7 g/dL 3.5-5.0 [facility] Serum or plasma albumin/glob ulin mass ratioOrdered By: Deborah Badillo on 01-10-2025 Albumin/Globulin [Mass ratio] 1.9 {ratio} 0.9-2.4 [facility] Serum or plasma alkaline reyna sphatase measurementOrdered By: Deborah Badillo on 01-10-2025 ALP [Catalytic activity/Vol] 49 U/L 35-104 [facility] Serum or plasma calcium chris urement (mass/volume)Ordered By: Deborah Badillo on 01-10-2025 Calcium [Mass/Vol] 9.7 mg/dL 7.6-11.0 [facility] Serum or plasma cholesterol in HDL measurement (mass/volume)Ordered By: Deborah Badillo on 01-10-2025 Cholesterol in HDL [Mass/Vol] 47 mg/dL >40 [facility] Comment on above: National Cholesterol Education Program (NCEP) guidelines:<40 mg/dL: Low HDL-cholesterol (major risk factor for CHD)>= 60 mg/dL: High HDL-cholesterol (negative risk factor for CHD)HDL-cholesterol is affected by a number of factors, e.g. smoking, exercise, hormones, sex and age. Serum or plasma cholesterol measurement (mass/volume)Ordered By: Deborah Badillo on 01-10-2025 Cholesterol [Mass/Vol] 177 mg/dL <201 [facility] Comment on above: Cholesterol level, D esirable <200 mg/dLBorderline high cholesterol 200-239 mg/dLHigh cholesterol >=240 mg/dLRecommendations of the NCEP Adult Treatment Panel for the following risk-cutoff thresholds for the [place] population. Serum or plasma urea nitroge n measurement (mass/volume)Ordered By: Deborah Badillo on 01-10-2025 Urea nitrogen [Mass/Vol] 9 mg/dL 4-19 [facility] Sodium levelOrdered By: Catrachito Badillo on 01-10-2025 Sodium [Moles/Vol] 139 mmol/L 133-145 [facility] TSH DL <= 0.005 mIU/L QnOrde red By: Deborah Badillo on 01-10-2025 TSH Qn 0.650 uIU/mL 0.300-4.200 [facility] Thyroid Stim Hormone (TSH)on 01-10-2025 TSH 0.650 uIU/mL Normal 0.300-4.200 [facility] Comment on above: Performed By: #### L 500.4100, L506.1001, L501.9985, L501.9520, L100.0100, L500.4050 #### [facility] [address] [place], [place], [id number] Total proteinOrdered By: Jaxson Badillo on 01-10-2025 Protein [Mass/Vol] 7.2 g/dL 5.9-8.4 [facility] Triglycerides measurementOrd ered By: Deborah Badillo on 01-10-2025 Triglyceride [Mass/Vol] 68 mg/dL <199 [facility] Comment on above: The drugs N-Acetylcy steine and Metamizole may falsely depress this assay. Normal range: <150 mg/dLBorderline High: 150-199 mg/dLHigh: 200-499 mg/dLVery High: >500 mg/dL Vitamin D,25 Hydroxyon 01-10 Vitamin D 25-OH 75.6 ng/mL Normal 30-100 [facility] Comment on above: Result Comment: Kamla min D Status Deficiency: <20 ng/mL (50nmol/L) Insufficiency: 20-30 ng/mL (50-75 nmol/L) Sufficiency: 30-100 ng/mL (75-250 nmol/L) Toxicity: >100 ng/mL (>250 nmol/L) Performed By: #### L 500.4100, L506.1001, L501.9985, L501.9520, L100.0100, L500.4050 #### [facility] [address] [place], [place], [id number] White blood cell (WBC) count Ordered By: Deborah Badillo on 01-10-2025 WBC (Bld) [#/Vol] 12.3 10*3/uL High 4.4-11.0 [facility] Cervical or vagninal specime n microscopic examination by cytology stain (reported asOrdered By: Deborah Badillo on 01-09-2025 Cytology report Cyto stain Doc (Cvx/Vag) Comment . [facility] Comment on above: The Pap smear is a s creening test designed to aid in thedetection of premalignant and malignant conditions of theuterine cervix. It is not a diagnostic procedure andshould not be used as the sole means of detecting cervicalcancer. Both false-positive and false-negative reports dooccur. Laboratory - CytologyOrdered By: Deborah Badillo on 01-09-2025 Audio/Visual Operator Cyto stain Nom (Cvx/Vag) [ID] Comment . [facility] Comment on above: Samara Pratt, Cytolog ist (ASCP) Laboratory - Miscellaneous t estsOrdered By: Deborah Badillo on 01-09-2025 Service comment (Unsp spec) [Interp] . . [facility] No Panel InformationOrdered By: Deborah Badillo on 01-09-2025 Pap Smear Specimen Adequacy Comment . [facility] Comment on above: Satisfactory for dahlia luation. No endocervical cells are present. This isconsistent with a history of hysterectomy. 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 Deborah Badillo MD) Hypertrophic cardiomyopathy H/O headache Surgical History (Updated 01/09/25 @ 08:[address] Deborah Badillo MD) Hx of hysterectomy Family History (Updated 01/09/25 @ 08:[address] Deborah Badillo MD) Mother Colon cancer Cancer of appendix, Onset Age: 57 Father Depression Hypertrophic cardiomyopathy Brother Hypertrophic cardiomyopathy Sister Hypertrophic cardiomyopathy Brother Hypertrophic cardiomyopathy Sister Hypertrophic cardiomyopathy Social History Smoking Status: Former smoker alcohol intake: current alcohol intake frequency: holidays/special occasions only substance use type: does not use what type of physical activity do you participate in: running and weight training frequency: 3-4 times per week History 3 Elective abortions Hx Para 3 Spontaneous abortions Hx # Term Pregnancies Ectopic pregnancies Hx # Pregnancies Multiple births # of living children Past Pregnancies Del. Date Name GA/Weeks Outcome Route Bth Weight Gen Labor Lgth Anesthesia Del Locatn Provider FOB Unknown Cary- 27 Unknown Constantino-21 Unknown Sabrina-20 HPI Encounter for routine gynecological examination Details: MAYO HORTA is a 44 year old who presents for annual exam.feels fatigue, does snore. referral for sleep study. Last PAP: due History of abnormal PAP: leep Last mammogram: ordered History of abnormal mammogram: Colon cancer screening: ordered Other preventative health care screenings: ordered screenings Female Reproductive History Questions: metorrhagia: No, sexually active: Yes, dyspareunia: No and PCB: No Menopausal Symptoms: No hot flashes, No night sweats, No weight change, No mood changes, No difficulty concentrating, No sleep problems and No change in libido ROS Const Constitutional: Reports as per HPI and fatigue; Denies increased appetite, poor appetite, night sweats, weight gain or weight loss Cardio Card: Denies chest pain Resp Resp: Denies cough or dyspnea GI GI: Reports as per HPI; Denies abdominal pain, bloating, constipation, nausea or vomiting : Reports as per HPI and other; Denies difficulty voiding, dysuria, hematuria, hot flashes, nipple discharge, pelvic pain, prolapse symptoms, urinary frequency, urinary incontinence, urinary urgency, vaginal discharge, vaginal dryness, vaginal odor or vaginal pruritus Details: feels incomplete emptying Skin Skin/Breast: Denies changing lesions, breast mass, breast pain, breast skin changes or nipple discharge Psych Psych: Denies anxiety, change in libido, depression or difficulty concentrating Exam Const General: cooperative, healthy appearing, comfortable, no acute distress, well developed and well groomed HENMT Head: normal to inspection and normocephalic Ears: hearing grossly normal bilaterally and external ears normal Nose: external nose normal Face and sinus: normal facial exam Neck Neck: normal visual inspection, full ROM and no lymphadenopathy Thyroid: thyroid normal Chest Chest palpation inspection: normal inspection of the chest Breast inspection: normal inspection of the breasts and normal inspection of the axillae Breast palpation: normal palpation of the breasts, normal palpation of the axillae and no axillary lymphadenopathy Resp Effort Inspection: normal respiratory effort GI Inspection: normal to inspection and non-distended Palpation: soft, no hepatosplenomegaly and no guarding General: bladder normal to palpation External Female Exam: normal external appearance, normal appearance of the urethra and no lesions U (more content not included)... Normal [facility] VITAMIN D 1,25-DIHYDROXYon 0 05-22-2023 VITAMIN D 1,25-DIHYDROXY 51.1 pg/mL Normal 19.9-79.3 [facility] Comment on above: Result Comment: INTE RPRETIVE INFORMATION: Vitamin D, 1,25-Dihydroxy This test is primarily indicated during patient evaluation for hypercalcemia and renal failure. A normal result does not rule out Vitamin D deficiency. The recommended test for diagnosing Vitamin D deficiency is Vitamin D 25-hydroxy. Performed By: [employer] [address] [place] [address] Structural Biologist: Juan Talamantes MD, PhD CLIA Number: [id number] Performed By: #### V TDDI #### [facility] [address] [place] [address] CORTISOL,UNSPECIFIEDon 05-21 CORTISOL,UNSPECIFIED 5.3 ug/dL Normal 2.5 - 20.0 [facility] Comment on above: Performed By: #### C ORUN #### [facility] [address] [place] [address] CBC AND DIFFERENTIALon 05-20 % AUTOMATED IMMATURE GRAN 0.2 % Normal 0.0 - 0.9 [facility] Comment on above: Result Comment: Brianda ture Granulocyte Count (IG) includes promyelocytes, myelocytes and metamyelocytes but does not include bands. Percent differential counts (%) should be interpreted in the context of the absolute cell counts (cells/L). Performed By: #### C BCDF #### [address] [address] Basophils (Bld) [#/Vol] 0.11 10*3/uL High 0.00 - 0.10 Merged With [facility] Comment on above: Performed By: #### C BCDF #### [address] [address] Basophils/100 WBC (Bld) 1.3 % Normal 0.0 - 2.0 Merged With [facility] Comment on above: Performed By: #### C BCDF #### [address] [address] Eosinophils (Bld) [#/Vol] 0.14 10*3/uL Normal 0.00 - 0.70 Merged With [facility] Comment on above: Performed By: #### C BCDF #### [address] [address] Eosinophils/100 WBC (Bld) 1.7 % Normal 0.0 - 6.0 Merged With [facility] Comment on above: Performed By: #### C BCDF #### [address] [address] Erythrocyte distribution width (RBC) [Ratio] 13.5 % Normal 11.5 - 14.5 Merged With [facility] Comment on above: Performed By: #### C BCDF #### [address] [address] Hematocrit (Bld) [Volume fraction] 44.0 % Normal 36.0 - 46.0 Merged With [facility] Comment on above: Performed By: #### C BCDF #### [address] [address] Hemoglobin (Bld) [Mass/Vol] 14.1 g/dL Normal 12.0 - 16.0 [facility]ed With [facility] Comment on above: Performed By: #### C BCDF #### [address] [address] Lymphocytes (Bld) [#/Vol] 2.75 10*3/uL Normal 1.20 - 4.80 [facility]erged With [facility] Comment on above: Performed By: #### C BCDF #### [address] [address] Lymphocytes/100 WBC (Bld) 33.0 % Normal 13.0 - 44.0 [facility] Comment on above: Performed By: #### C BCDF #### [address] [address] MCHC (RBC) [Mass/Vol] 32.0 g/dL Normal 32.0 - 36.0 [facility] Comment on above: Performed By: #### C BCDF #### [address] [address] MCV (RBC) [Entitic vol] 97 fL Normal 80 - 100 [facility] With [facility] Comment on above: Performed By: #### C BCDF #### [address] [address] Monocytes (Bld) [#/Vol] 0.44 10*3/uL Normal 0.10 - 1.00 [facility]erged With [facility] Comment on above: Performed By: #### C BCDF #### [address] [address] Monocytes/100 WBC (Bld) 5.3 % Normal 2.0 - 10.0 [facility] With [facility] Comment on above: Performed By: #### C BCDF #### [address] [address] Neutrophils (Bld) [#/Vol] 4.88 10*3/uL Normal 1.20 - 7.70 [facility] With [facility] Comment on above: Result Comment: Perc ent differential counts (%) should be interpreted in the context of the absolute cell counts (cells/L). Performed By: #### C BCDF #### [address] [address] Neutrophils/100 WBC (Bld) 58.5 % Normal 40.0 - 80.0 [facility] Comment on above: Performed By: #### C BCDF #### [address] [address] Platelets (Bld) [#/Vol] 133 10*3/uL Low 150 - 450 Merg[facility] With [facility] Comment on above: Performed By: #### C BCDF #### [address] [address] RBC 4.53 x10E12/L Normal 4.00 - 5.20 [facility] With [facility] Comment on above: Performed By: #### C BCDF #### [address] [address] WBC (Bld) [#/Vol] 8.3 10*3/uL Normal 4.4 - 11.3 [facility] Comment on above: Performed By: #### C BCDF #### [address] [address] COMPREHENSIVE PANELon 2022 Albumin [Mass/Vol] 4.5 g/dL Normal 3.4 - 5.0 [facility] Comment on above: Performed By: #### C MP #### [address] [address] ALP [Catalytic activity/Vol] 37 U/L Normal 33 - 110 [facility] Comment on above: Performed By: #### C MP #### [address] [address] ALT [Catalytic activity/Vol] 10 U/L Normal 7 - 45 [facility] Comment on above: Result Comment: Lisa ents treated with Sulfasalazine may generate falsely decreased results for ALT. Performed By: #### C MP #### [address] [address] Anion gap [Moles/Vol] 10 mmol/L Normal 10 - 20 [facility] Comment on above: Performed By: #### C MP #### [address] [address] AST [Catalytic activity/Vol] 14 U/L Normal 9 - 39 [facility] Comment on above: Performed By: #### C MP #### [address] [address] Bilirubin [Mass/Vol] 0.5 mg/dL Normal 0.0 - 1.2 [facility] Comment on above: Performed By: #### C MP #### [address] [address] Calcium [Mass/Vol] 9.3 mg/dL Normal 8.6 - 10.3 [facility] Comment on above: Performed By: #### C MP #### [address] [address] Chloride [Moles/Vol] 104 mmol/L Normal 98 - 107 [facility] Comment on above: Performed By: #### C MP #### [address] [address] Creatinine [Mass/Vol] 0.92 mg/dL Normal 0.50 - 1.05 [facility] Comment on above: Performed By: #### C MP #### [address] [address] GFR/1.73 sq M.predicted among non-blacks MDRD (S/P/Bld) [Vol rate/Area] 79 mL/min/{1.73_m2} Normal >90 M[facility] Comment on above: Result Comment: CALC ULATIONS OF ESTIMATED GFR ARE PERFORMED USING THE 2020 CKD-EPI STUDY REFIT EQUATION WITHOUT THE RACE VARIABLE FOR THE IDMS-TRACEABLE CREATININE METHODS. https://jasn.asnjournals.org/content//ASN. 43025 Performed By: #### C MP #### [address] [address] Glucose [Mass/Vol] 80 mg/dL Normal 74 - 99 [facility] Comment on above: Performed By: #### C MP #### [address] [address] HCO3 (Bld) [Moles/Vol] 27 mmol/L Normal 21 - 32 [facility] Comment on above: Performed By: #### C MP #### [address] [address] Potassium [Moles/Vol] 4.2 mmol/L Normal 3.5 - 5.3 [facility] Comment on above: Performed By: #### C MP #### [address] [address] Protein [Mass/Vol] 6.5 g/dL Normal 6.4 - 8.2 [facility] Comment on above: Performed By: #### C MP #### [address] [address] Sodium [Moles/Vol] 137 mmol/L Normal 136 - 145 [facility] Comment on above: Performed By: #### C MP #### [address] [address] Urea nitrogen [Mass/Vol] 9 mg/dL Normal 6 - 23 [facility] Comment on above: Performed By: #### C MP #### [address] [address] CORTISOL,UNSPECIFIEDon 05-20 Lab Specimen Source Normal [facility] Comment on above: Performed By: #### C ORUN #### [facility] [address] [place] [address] Performed By: #### V TB12 #### [address] [address] Performed By: #### C MP #### [address] [address] Performed By: #### C BCDF #### [place] [id number] Performed By: #### V TDDI #### [facility] [address] [place] [address] VITAMIN B12on 05-20-2023 Cobalamin (Vitamin B12) [Mass/Vol] 688 pg/mL Normal 211 - 911 [facility] Comment on above: Performed By: #### V TB12 #### [address] [address] CBCon 11-21-2022 Erythrocyte distribution width (RBC) [Ratio] 13.3 % Normal 11.5 - 14.5 [facility] Comment on above: Performed By: #### C BC #### [address] [address] Hematocrit (Bld) [Volume fraction] 46.1 % High 36.0 - 46.0 [facility] Comment on above: Performed By: #### C BC #### [address] [address] Hemoglobin (Bld) [Mass/Vol] 15.0 g/dL Normal 12.0 - 16.0 [facility] Comment on above: Performed By: #### C BC #### [address] [address] MCHC (RBC) [Mass/Vol] 32.5 g/dL Normal 32.0 - 36.0 [facility] Comment on above: Performed By: #### C BC #### [address] [address] MCV (RBC) [Entitic vol] 95 fL Normal 80 - 100 [facility] Comment on above: Performed By: #### C BC #### [address] [address] Platelets (Bld) [#/Vol] 193 10*3/uL Normal 150 - 450 [facility] Comment on above: Performed By: #### C BC #### [address] [address] RBC 4.84 x10E12/L Normal 4.00 - 5.20 [facility] Comment on above: Performed By: #### C BC #### [address] [address] WBC (Bld) [#/Vol] 10.5 10*3/uL Normal 4.4 - 11.3 [facility] Comment on above: Performed By: #### C BC #### [address] [address] VITAMIN B12on 11-21-2022 Cobalamin (Vitamin B12) [Mass/Vol] 233 pg/mL Normal 211 - 911 [facility] Comment on above: Performed By: #### V TB12 #### [place] [address] Lab Specimen Source Normal [facility] Comment on above: Performed By: #### V TB12 #### [address] [address] Performed By: #### C BC #### [place] [address] Performed By: #### V TDOH #### [address] [address] VITAMIN D, 25-HYDROXYon 10-30 VITAMIN D, 25-HYDROXY 33 ng/mL Normal [facility] Comment on above: Result Comment: . DEFICIENCY: < 20 NG/ML INSUFFICIENCY: 20-29 NG/ML SUFFICIENCY: 30-100 NG/ML THIS ASSAY ACCURATELY QUANTIFIES THE SUM OF VITAMIN D3, 25-HYDROXY AND VIT D2,25-HYDROXY. Performed By: #### V TDOH #### [address] [address] Radiologyon 04-16-2022 XR Hand 3 Views Normal [facility] Work Phone: Office Visit (Family Medicin e)on 03-27-2022 Follow-up visit Diagnoses/Problems Anxiety (300.00) (F41.9) Encounter for weight management (V65.49) (Z76.89) BMI 27.0-27.9,adult (V85.23) (Z68.27) Orders Anxiety Start: buPROPion HCl ER (SR) 150 MG Oral Tablet Extended Release 12 Hour; Take 1 tablet daily Anxiety, Encounter for weight management Follow-up visit in 1 month Outpatient Follow-up Status: Hold For - Scheduling Requested for: [id number] BMI 27.0-27.9,adult, Weight gain Renew: Phentermine HCl - 37.5 MG Oral Capsule (Adipex-P); TAKE 1 CAPSULE EVERY MORNING BEFORE BREAKFAST Provider Impressions Weight management: Will continue on phentermine for 1 more month, Encouraged to consume at least 1500 caloris a day, follow low sugar high protein diet. Continue exercising 3-5 times weekly. Anxiety: Will start on Wellbutrin 150 mg daily. Follow up in 1 month Chief Complaint Weight check. History of Present Illness Mayo is a 41 yo female, here today to follow up on weight management, she feels as though the medication isn't helping much, she continue to maintain current weight despite decreased calorie and exercise. She expressed frustration and feeling anxious regarding her weight. Long discussion regarding nutrition, Mayo reports consuming 800-1100 calories daily recommend she consume 8889-9432 calories daily. She is willing to start medication to help with anxiety, she feels as though this is the reason she cant consume enough calories. Anxiety is decreasing appetite. No other health concerns today Review of Systems Constitutional: no chills, no fever and no night sweats. Cardiovascular: no chest pain, no intermittent leg claudication, no lower extremity edema, no palpitations and no syncope. Respiratory: no cough, no shortness of breath during exertion, no shortness of breath at rest and no wheezing. Gastrointestinal: no abdominal pain, no blood in stools, no constipation, no diarrhea, no melena, no nausea, no rectal pain and no vomiting. Musculoskeletal: no arthralgias, no back pain and no myalgias. Neurological: no difficulty walking, no headache, no limb weakness, no numbness and no tingling. Psychiatric: anxiety, but no depression, no anhedonia and no substance use disorders. Active Problems Acute upper respiratory infection (465.9) (J06.9) Bilateral hip pain (719.45) (M25.551,M25.552) BMI 27.0-27.9,adult (V85.23) (Z68.27) Cardiomyopathy, hypertrophic (425.18) (I42.2) Encounter for weight management (V65.49) (Z76.89) Temperature intolerance (780.99) (R68.89) Weight gain (783.1) (R63.5) Surgical History History of Bunionectomy History of Hysterectomy Family History Family history of malignant neoplasm of colon (V16.0) (Z80.0) Family history of hypertrophic cardiomyopathy (V17.49) (Z82.49) Family history of hypertrophic cardiomyopathy (V17.49) (Z82.49) Social History Current every day smoker (305.1) (F17.200) Does not have living will No illicit drug use Allergies No Known Drug Allergies Recorded By: Cortney Luna; 09/12/2013 3:29:56 PM Current Meds Medication NameInstructionReason Phentermine HCl - 37.5 MG Oral CapsuleTAKE 1 CAPSULE EVERY MORNING BEFORE BREAKFAST.BMI 27.0-27.9,adult, Weight gain Multi-Vitamins TABS Vitals Vital Signs Recorded: 60Esz8766 08:03AM Ktbkgbeyvoa81.1 F Heart Sqxb311 Uptvtmhh920 Jcrldnsot75 Height5 ft 2 in Nvtlvc289 lb 6 oz BMI Cusqcpvowl85.14 kg/m2 BSA Calculated1.68 Tobacco Usea) Yes Patient encouraged to stop using tobacco productsYes Physical Exam Constitutional: Alert and in no acute distress. Well developed, well nourished. Cardiovascular: Heart rate and rhythm were normal, normal S1 and S2, no gallops, no murmurs and no pericardial rub. Pedal pulses: Normal. No peripheral edema. Pulmonary: No respiratory distress. Clear bilateral breath sounds. Abdomen: Soft nontender; no abdominal mass palpated. No organomegaly. Psychiatric: Judgment and insight: Intact. Mood and affect: Normal. 'Scores and Scales' Signatures Electronically signed by : EDILMA Castillo; Mar 27 2022 9:20AM EST (Author) Normal [employer] Tobacco Screening.on 022 Tobacco use status [facility] a) Yes [facility] Work Phone: [facility]ening. [facility] (Family Medicin e)on 02-27-2022 Follow-up visit Diagnoses/Problems Weight gain (783.1) (R63.5) BMI 27.0-27.9,adult (V85.23) (Z68.27) Encounter for weight management (V65.49) (Z76.89) Orders BMI 27.0-27.9,adult, Weight gain Renew: Phentermine HCl - 37.5 MG Oral Capsule (Adipex-P); TAKE 1 CAPSULE EVERY MORNING BEFORE BREAKFAST Encounter for weight management Follow-up visit in 1 month Outpatient Follow-up Status: Hold For - Scheduling Requested for: 27Feb2022 Provider Impressions Weight management: Continue with lifestyle changes including 9742-4502 calorie diet, low sugar, low fat. Increase exercised to daily if tolerated. Will refill Adipex-P. Return in 1 months for follow up Chief Complaint 1 month weight check. History of Present Illness Mayo is a 41 yo female her today to follow up on weight management. Mayo reports 7 lb weight loss over last month. She continue to follow low sugar, low calorie healthy diet. She is exercising 4-5 times a week. She is frustrated with weight loss was hoping for more. Encouragement given. Review of Systems Constitutional: no chills, no fever and no night sweats. Cardiovascular: no chest pain, no intermittent leg claudication, no lower extremity edema, no palpitations and no syncope. Respiratory: no cough, no shortness of breath during exertion, no shortness of breath at rest and no wheezing. Gastrointestinal: no abdominal pain, no blood in stools, no constipation, no diarrhea, no melena, no nausea, no rectal pain and no vomiting. Genitourinary: no dysuria, no change in urinary frequency, no urinary hesitancy, no feelings of urinary urgency and no vaginal discharge. Neurological: no difficulty walking, no headache, no limb weakness, no numbness and no tingling. Psychiatric: no anxiety, no depression, no anhedonia and no substance use disorders. Active Problems Acute upper respiratory infection (465.9) (J06.9) Bilateral hip pain (719.45) (M25.551,M25.552) BMI 27.0-27.9,adult (V85.23) (Z68.27) Cardiomyopathy, hypertrophic (425.18) (I42.2) Temperature intolerance (780.99) (R68.89) Weight gain (783.1) (R63.5) Surgical History History of Bunionectomy History of Hysterectomy Family History Family history of malignant neoplasm of colon (V16.0) (Z80.0) Family history of hypertrophic cardiomyopathy (V17.49) (Z82.49) Family history of hypertrophic cardiomyopathy (V17.49) (Z82.49) Social History Current every day smoker (305.1) (F17.200) Does not have living will No illicit drug use Allergies No Known Drug Allergies Recorded By: Cortney Luna; 09/12/2013 3:29:56 PM Current Meds Medication NameInstructionReason Phentermine HCl - 37.5 MG Oral CapsuleTAKE 1 CAPSULE EVERY MORNING BEFORE BREAKFAST.BMI 27.0-27.9,adult, Weight gain Multi-Vitamins TABS Vitals Vital Signs Recorded: 27Feb2022 01:20PM Heart Rate68 Lozrfvsh582 Nemkzvoyx18 Height5 ft 2 in Jindsm350 lb 7 oz BMI Mpsvvuewaa11.33 kg/m2 BSA Calculated1.69 Tobacco Usea) Yes Patient encouraged to stop using tobacco productsYes Physical Exam Constitutional: Alert and in no acute distress. Well developed, well nourished. Cardiovascular: Heart rate and rhythm were normal, normal S1 and S2, no gallops, no murmurs and no pericardial rub. Pedal pulses: Normal. No peripheral edema. Pulmonary: No respiratory distress. Clear bilateral breath sounds. Abdomen: Soft nontender; no abdominal mass palpated. No organomegaly. Psychiatric: Judgment and insight: Intact. Mood and affect: Normal. 'Scores and Scales' Signatures Electronically signed by : EDILMA Castillo; Feb 27 2022 2:45PM EST (Author) Normal [employer] Tobacco Screening.on 022 Tobacco use status [facility] a) Yes [facility] Work [facility]: [facility]. [facility] Work Phone: Heart Rateon 01-28-2022 Adult depression screening assessment No [facility] Work Phone: Heart Rate Regular [facility] Work Phone: Tobacco use status [facility] a) Yes [facility] Work Phone: Heart Rate Yes [facility] Work Phone: Office Visit (Family Medicin e)on 01-28-2022 Follow-up visit Diagnoses/Problems Weight gain (783.1) (R63.5) BMI 27.0-27.9,adult (V85.23) (Z68.27) Orders BMI 27.0-27.9,adult, Weight gain Start: Phentermine HCl - 37.5 MG Oral Capsule (Adipex-P); TAKE 1 CAPSULE EVERY MORNING BEFORE BREAKFAST Follow-up visit in 1 month Outpatient Follow-up Status: Hold For - Scheduling Requested for: [id number] Provider Impressions Weight gain/BMI 27: Will start on Adipex-P therapy, goal is BMI 25. Instructions on use and indication as well as risks including rebound weight gain have been discussed with patient. Instructed to continue exercise and healthy diet with Adipex-P therapy. Return in 1 month for follow up Chief Complaint med check, no concerns. History of Present Illness I have personally reviewed the [place]AR[place] report for MAYO HORTA. I have considered the risks of abuse, dependence, addiction and diversion. I have the following concerns: no OARRS report, no prior controlled substances prescribed. Controlled Substance Agreement: I have printed this form and reviewed each line item with the patient and the patient has verbalized understanding. Date of the last Controlled Substance Agreement: 01/28/22 [place] What is the patient?s goal of therapy? BMI goal 25. Is this being achieved with current treatment? initiating [place] today. Before starting treatment: I have assessed the patient?s continuing efforts to lose weight, I have assessed the patient?s dedication to the treatment program and the response to treatment and I have assessed the presence or absence of contraindications, adverse effects, and indicators of possible substance abuse that would necessitate cessation of treatment utilizing controlled substance. Mayo is a 41 yo female, her today for follow up. She is interested in weight loss assistance, She is engaged in an exercise program 3-5 times a week. and following a healthy diet. She is interested in starting on Adipex-P for additional weight loss. Labs, EKG and Echo were in normal range. Review of Systems Constitutional: no chills, no fever and no night sweats. Cardiovascular: no chest pain, no intermittent leg claudication, no lower extremity edema, no palpitations and no syncope. Respiratory: no cough, no shortness of breath during exertion, no shortness of breath at rest and no wheezing. Gastrointestinal: no abdominal pain, no blood in stools, no constipation, no diarrhea, no melena, no nausea, no rectal pain and no vomiting. Musculoskeletal: no arthralgias, no back pain and no myalgias. Neurological: no difficulty walking, no headache, no limb weakness, no numbness and no tingling. Psychiatric: no anxiety, no depression, no anhedonia and no substance use disorders. Active Problems Acute upper respiratory infection (465.9) (J06.9) Bilateral hip pain (719.45) (M25.551,M25.552) Cardiomyopathy, hypertrophic (425.18) (I42.2) Temperature intolerance (780.99) (R68.89) Weight gain (783.1) (R63.5) Surgical History History of Bunionectomy History of Hysterectomy Family History Family history of malignant neoplasm of colon (V16.0) (Z80.0) Family history of hypertrophic cardiomyopathy (V17.49) (Z82.49) Family history of hypertrophic cardiomyopathy (V17.49) (Z82.49) Social History Current every day smoker (305.1) (F17.200) Does not have living will No illicit drug use Allergies No Known Drug Allergies Recorded By: Cortney Luna; 09/12/2013 3:29:56 PM Current Meds Medication NameInstructionReason Multi-Vitamins TABS Physical Exam Constitutional: Alert and in no acute distress. Well developed, well nourished. Cardiovascular: Heart rate and rhythm were normal, normal S1 and S2, no gallops, no murmurs and no pericardial rub. Pedal pulses: Normal. No peripheral edema. Pulmonary: No respiratory distress. Clear bilateral breath sounds. Musculoskeletal: No joint swelling seen, normal movements of all extremities. Range of motion: Normal. Muscle strength/tone: Normal. Psychiatric: Judgment and insight: Intact. Mood and affect: Normal. Results/Data Csfhmicsqwkdct49Bcr2110 09:02Shreyas Marshall Test NameResultFlagReference Echocardiogram(Report) [id number] [address] [place] [address] ext-2923, TRANSTHORACIC ECHOCARDIOGRAM REPORT Patient Name: MAYO ADAMPATRICIA Reading Physician: [id number] Sebastian Adams MD Study Date: 01/22/2022 Referring [id number] SHREYAS JOSEE Physician: MRN/PID: [id number] PCP: Accession/Order#: [id number] Department [facility] Echo Lab Location: Date of : 1980 Fellow: Gender: F Nurse: Admit Date: Prom Burn Off Operator: Kyle Blanco [facility] Admission Status: Outpatient Additional Staff: Height: 157.48 cm CC Report to: Weight: 68.04 kg Study Type: Echocardiogram BSA: 1.69 m2 Blood Pressure: 120 /83 mmHg Diagnosis/ICD: I42.2-Other hypertrophic cardiomyopathy Indication: Procedure/CPT: Echo Complete w Full Doppler-[id number] Study Detail: The (more content not included)... Normal [employer] Electrocardiogram 12 Leadon 01-22-2022 Electrocardiogram 12 Lead Ventricular Rate 68 Atrial Rate 68 P-R Interval 146 QRS Duration 80 Q-T Interval 408 QTC Calculation(Bazett) 433 P [place] 27 R [place] 120 T [place] 43 QRS Count 11 Q Onset 223 P Onset 150 P Offset 194 T Offset 427 QTC [place] 425 Diagnosis Class Abnormal Diagnosis Normal sinus rhythm Abnormal ECG No previous ECGs available Confirmed by Sebastian Adams ([id number]) on 01/22/2022 10:44:43 AM Normal [facility] No Panel Informationon 01-22 [email or web address] ?[email or web address]=[id number]&Date =22-01-2022&Time=08%3a40% 3a43%3a00&TestType=ECG&Si te=14&OutputType=PDF&Ext= PDF [facility] Work Phone: Normal sinus rhythm [facility] Work Phone: Abnormal [facility] Work Phone: [phone] [facility] Work Phone: [phone] [facility] Work Phone: [phone] [facility] Work Phone: [phone] [facility] Work Phone: [phone] [facility] Work Phone: 11 1 [facility] Work Phone: 43 1 [facility] Work Phone: 120 1 [facility] Work Phone: 27 1 [facility] Work Phone: [phone] 1 [facility] Work Phone: [phone] 1 [facility] Work Phone: 80 1 [facility] Work Phone: 146 1 [facility] Work Phone: 68 1 [facility] Work Phone: BASIC METABOLIC PANELon 05-0 -2021 Anion gap [Moles/Vol] 11 mmol/L Normal 10 - 20 [facility] Comment on above: Performed By: #### B MP #### [address] [address] Calcium [Mass/Vol] 9.4 mg/dL Normal 8.6 - 10.3 [facility] Comment on above: Performed By: #### B MP #### [address] [address] Chloride [Moles/Vol] 104 mmol/L Normal 98 - 107 [facility] Comment on above: Performed By: #### B MP #### [address] [address] Creatinine [Mass/Vol] 0.80 mg/dL Normal 0.50 - 1.05 [facility] Comment on above: Performed By: #### B MP #### [address] [address] eGFR FEMALE >90 Normal >90 [facility] Comment on above: Result Comment: CALC ULATIONS OF ESTIMATED GFR ARE PERFORMED USING THE 2020 CKD-EPI STUDY REFIT EQUATION WITHOUT THE RACE VARIABLE FOR THE IDMS-TRACEABLE CREATININE METHODS. https://jasn.asnjournals.org/content//ASN.[email or web address] 72441 Performed By: #### B MP #### [address] [address] Glucose [Mass/Vol] 88 mg/dL Normal 74 - 99 [facility] Comment on above: Performed By: #### B MP #### [address] [address] HCO3 (Bld) [Moles/Vol] 27 mmol/L Normal 21 - 32 [facility] Comment on above: Performed By: #### B MP #### [address] [address] Potassium [Moles/Vol] 4.4 mmol/L Normal 3.5 - 5.3 [facility] Comment on above: Performed By: #### B MP #### [address] [address] Sodium [Moles/Vol] 138 mmol/L Normal 136 - 145 [facility] Comment on above: Performed By: #### B MP #### [address] [address] Urea nitrogen [Mass/Vol] 10 mg/dL Normal 6 - 23 [facility] Comment on above: Performed By: #### B MP #### [address] [address] CBCon 12-31-2021 Erythrocyte distribution width (RBC) [Ratio] 13.8 % Normal 11.5 - 14.5 [facility] Comment on above: Performed By: #### C BC #### [address] [address] Hematocrit (Bld) [Volume fraction] 43.3 % Normal 36.0 - 46.0 [facility] Comment on above: Performed By: #### C BC #### [address] [address] Hemoglobin (Bld) [Mass/Vol] 14.7 g/dL Normal 12.0 - 16.0 [facility] Comment on above: Performed By: #### C BC #### [address] [address] MCHC (RBC) [Mass/Vol] 34.0 g/dL Normal 32.0 - 36.0 [facility] Comment on above: Performed By: #### C BC #### [address] [address] MCV (RBC) [Entitic vol] 92 fL Normal 80 - 100 [facility] Comment on above: Performed By: #### C BC #### [address] [address] Platelets (Bld) [#/Vol] 187 10*3/uL Normal 150 - 450 [facility] Comment on above: Performed By: #### C BC #### [address] [address] RBC 4.69 x10E12/L Normal 4.00 - 5.20 [facility] Comment on above: Performed By: #### C BC #### [address] [address] WBC (Bld) [#/Vol] 11.6 10*3/uL High 4.4 - 11.3 [facility] Comment on above: Performed By: #### C BC #### [address] [address] LIPID PANEL (CORONARY RISK 2 )on 12-31-2021 Cholesterol [Mass/Vol] 170 mg/dL Normal 0 - 199 [facility] Comment on above: Result Comment: . AGE DESIRABLE BORDERLINE HIGH HIGH 0-19 Y 0 - 169 170 - 199 >/= 200 20-24 Y 0 - 189 190 - 224 >/= 225 >24 Y 0 - 199 200 - 239 >/= 240 All ranges are based on fasting samples. Specific therapeutic targets will vary based on patient-specific cardiac risk. . Pediatric guidelines reference:Pediatrics 2011, 128(S5). Adult guidelines reference: NCEP ATPIII Guidelines, DAVY 2001, 258:2486-97 . Venipuncture immediately after or during the administration of Metamizole may lead to falsely low results. Testing should be performed immediately prior to Metamizole dosing. Performed By: #### L IPID #### [address] [address] Cholesterol in HDL [Mass/Vol] 50.0 mg/dL Normal [facility] Comment on above: Result Comment: . AGE VERY LOW LOW NORMAL HIGH 0-19 Y < 35 < 40 40-45 ---- 20-24 Y ---- < 40 >45 ---- >24 Y ---- < 40 40-60 >60 . Performed By: #### L IPID #### [address] [address] Cholesterol in LDL [Mass/Vol] 102 mg/dL High 0 - 99 [facility] Comment on above: Result Comment: . NEAR BORD AGE DESIRABLE OPTIMAL HIGH HIGH VERY HIGH 0-19 Y 0 - 109 --- 110-129 >/= 130 ---- 20-24 Y 0 - 119 --- 120-159 >/= 160 ---- >24 Y 0 - 99 100-129 130-159 160-189 >/=190 . Performed By: #### L IPID #### [address] [address] Cholesterol in VLDL [Mass/Vol] 18 mg/dL Normal 0 - 40 [facility] Comment on above: Performed By: #### L IPID #### [address] [address] Cholesterol.total/Chol esterol in HDL [Mass ratio] 3.4 {ratio} Normal [facility] Comment on above: Result Comment: REF VALUES DESIRABLE < 3.4 HIGH RISK > 5.0 Performed By: #### L IPID #### [address] [address] Triglyceride [Mass/Vol] 89 mg/dL Normal 0 - 149 [facility] Comment on above: Result Comment: . AGE DESIRABLE BORDERLINE HIGH HIGH VERY HIGH 0 D-90 D 19 - 174 ---- ---- ---- 91 D- 9 Y 0 - 74 75 - 99 >/= 100 ---- 10-19 Y 0 - 89 90 - 129 >/= 130 ---- 20-24 Y 0 - 114 115 - 149 >/= 150 ---- >24 Y 0 - 149 150 - 199 200- 499 >/= 500 . Venipuncture immediately after or during the administration of Metamizole may lead to falsely low results. Testing should be performed immediately prior to Metamizole dosing. Performed By: #### L IPID #### [facility] [address] [place] [address] Laboratory - Chemistry and C hemistry - challengeon 12-31-2021 Anion gap [Moles/Vol] 11 mmol/L 10 - 20 [facility] Work Phone: Calcium [Mass/Vol] 9.4 mg/dL 8.6 - 10.3 [facility] Work Phone: Chloride [Moles/Vol] 104 mmol/L 98 - 107 [facility] Work Phone: CO2 [Moles/Vol] 27 mmol/L 21 - 32 [facility] Work Phone: Creatinine [Mass/Vol] 0.80 mg/dL See Below [facility] Work Phone: Comment on above: Reference Range: 0.5 0 - 1.05 Glucose [Mass/Vol] 88 mg/dL 74 - 99 [facility] Work Phone: Potassium [Moles/Vol] 4.4 mmol/L 3.5 - 5.3 [facility] Work Phone: Sodium [Moles/Vol] 138 mmol/L 136 - 145 [facility] Work Phone: TSH Qn 0.90 m[IU]/L See Below [facility] Work Phone: Comment on above: Reference Range: 0.4 4 - 3.98 TSH testing is performed using different testing methodology at [facility] than at other [facility]. Direct result comparisons should only be made within the same method. Urea nitrogen [Mass/Vol] 10 mg/dL 6 - 23 [facility] Work Phone: Laboratory - Hematology and Cell countson 12-31-2021 Erythrocyte distribution width (RBC) [Ratio] 13.8 % See Below [facility] Work Phone: Comment on above: Reference Range: 11. 5 - 14.5 Hematocrit (Bld) [Volume fraction] 43.3 % See Below [facility] Work Phone: Comment on above: Reference Range: 36. 0 - 46.0 Hemoglobin (Bld) [Mass/Vol] 14.7 g/dL See Below [facility] Work Phone: Comment on above: Reference Range: 12. 0 - 16.0 MCHC (RBC) [Mass/Vol] 34.0 g/dL See Below [facility] Work Phone: Comment on above: Reference Range: 32. 0 - 36.0 MCV (RBC) [Entitic vol] 92 fL 80 - 100 [facility] Work Phone: Platelets (Bld) [#/Vol] 187 10*3/uL 150 - 450 [facility] Work Phone: RBC (Bld) [#/Vol] 4.69 {x10E12/L} See Below [facility] Work Phone: Comment on above: Reference Range: 4.0 0 - 5.20 WBC (Bld) [#/Vol] 11.6 10*3/uL above high threshold 4.4 - 11.3 [facility] Work Phone: Lipid Panelon 12-31-2021 Cholesterol [Mass/Vol] 170 mg/dL 0 - 199 [facility] Work Phone: Comment on above: . AGE DESIRABLE BORD YANET HIGH HIGH 0-19 Y 0 - 169 170 - 199 >/= 200 20-24 Y 0 - 189 190 - 224 >/= 225 >24 Y 0 - 199 200 - 239 >/= 240 All ranges are based on fasting samples. Specific therapeutic targets will vary based on patient-specific cardiac risk.. Pediatric guidelines reference:Pediatrics 2011, 128(S5). Adult guidelines reference: NCEP ATPIII Guidelines, DAVY 2001, 258:2486-97. Venipuncture immediately after or during the administration of Metamizole may lead to falsely low results. Testing should be performed immediately prior to Metamizole dosing. Cholesterol in HDL [Mass/Vol] 50.0 mg/dL [facility] Work Phone: Comment on above: . AGE VERY LOW LOW N ORMAL HIGH 0-19 Y < 35 < 40 40-45 ---- 20-24 Y ---- < 40 >45 ---- >24 Y ---- < 40 40-60 >60. Cholesterol in LDL [Mass/Vol] 102 mg/dL above high threshold 0 - 99 [facility] Work Phone: Comment on above: . NEAR BORD AGE FAUSTO RABLE OPTIMAL HIGH HIGH VERY HIGH 0-19 Y 0 - 109 --- 110-129 >/= 130 ---- 20-24 Y 0 - 119 --- 120-159 >/= 160 ---- >24 Y 0 - 99 100-129 130-159 160-189 >/=190. Cholesterol.total/Chol esterol in HDL [Mass ratio] 3.4 {ratio} [facility] Work Phone: Comment on above: REF VALUESDESIRABLE < 3.4HIGH RISK > 5.0 Triglyceride [Mass/Vol] 89 mg/dL 0 - 149 [facility] Work Phone: Comment on above: . AGE DESIRABLE BORD YANET HIGH HIGH VERY HIGH 0 D-90 D 19 - 174 ---- ---- ----91 D- 9 Y 0 - 74 75 - 99 >/= 100 ---- 10-19 Y 0 - 89 90 - 129 >/= 130 ---- 20-24 Y 0 - 114 115 - 149 >/= 150 ---- >24 Y 0 - 149 150 - 199 200- 499 >/= 500. Venipuncture immediately after or during the administration of Metamizole may lead to falsely low results. Testing should be performed immediately prior to Metamizole dosing. Lipid Panel 18 mg/dL 0 - 40 [facility] Work Phone: No Panel Informationon 12-31 >90 >90 [facility] Work Phone: Comment on above: CALCULATIONS OF OZZY MATED GFR ARE PERFORMED USING THE 2020 CKD-EPI STUDY REFIT EQUATION WITHOUT THE RACE VARIABLE FOR THE IDMS-TRACEABLE CREATININE METHODS.https://jasn.asnjournals.org/content//A .[email or web address] Office Visit ([facility])on 12-31-2021 Follow-up visit Diagnoses/Problems Encounter for preventive health examination (V70.0) (Z00.00) Cardiomyopathy, hypertrophic (425.18) (I42.2) Weight gain (783.1) (R63.5) Temperature intolerance (780.99) (R68.89) Bilateral hip pain (719.45) (M25.551,M25.552) Orders Cardiomyopathy, hypertrophic Echocardiogram; Status:Hold For - Scheduling; Requested for:31Dec2021; Electrocardiogram 12 Lead; Status:Active; Requested for:31Dec2021; Cardiomyopathy, hypertrophic, Temperature intolerance, Weight gain Follow-up visit in 3 months Outpatient Follow-up Status: Hold For - Scheduling Requested for: 31Dec2021 Health Maintenance Basic Metabolic Panel; Status:Resulted - Requires Verification; Done: 31Dec2021 11:22AM Complete Blood Count; Status:Resulted - Requires Verification; Done: 31Dec2021 11:22AM Lipid Panel; Status:Resulted - Requires Verification; Done: 31Dec2021 11:22AM TSH WITH REFLEX TO FREE T4 IF ABNORMAL; Status:Resulted - Requires Verification; Done: 31Dec2021 11:22AM Vitamin B12, Serum; Status:Resulted - Requires Verification; Done: 31Dec2021 11:22AM Vitamin D 25-Hydroxy; Status:Resulted - Requires Verification; Done: 31Dec2021 11:22AM Provider Impressions Health Maintenance: Will check labs for CBC, BMP, vitamin B12, vitamin D, and Lipid panel Cardiomyopathy: Will check ELK and Echocardiogram, will need to re-establish with cardiology. Temperature intolerance and weight gain: will check TSH, diet and exercise education provided. Will consider Adipex-P if cardiac testing is normal. 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 Adult Risk Screening Tobacco Screening: MAYO uses tobacco. Has used tobacco in the past 6 months. Has tried to quit or thought about quitting tobacco. Smoking/ tobacco counseling 3-10 mins. Type(s) of Tobacco: cigarettes Blood Pressure monitoring Blood Pressure Controlled, Systolic <130 mm Hg Blood Pressure Controlled, Diastolic < 80mm Hg Depression/Suicide Screening: During the past 2 weeks, the patient has not felt down, depressed or hopeless. During the past 2 weeks, the patient has not felt little interest or pleasure in doing things. 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 Mayo reports her father and brother from hypertropic cardiomyopathy. Her brother was age 26 which prompted family to undergo genetic testing and five of the sibling have hypertropic cardiomyopathy. She states she is supposed to have echo done annually and follow with cardiology. She has not seen cardiology nor had echo in over 1 year. She has not seen OBGYN in over 2 years. Does exercise daily and follow healthy diet. She has not had any changes in diet or activity however has gained 20 lb in 6 months, complains of chronically cold. She has bilateral hip pain from running on treadmill. She does report palpitations about twice a week and does consume caffeine daily. She denies any recent illness, no recent hospitalizations. She is concerned with weight gain, checking on labs and echocardiogram to monitor her cardiomyopathy. Review of Systems Constitutional: feeling tired. Eyes: eyesight problems. ENT: no hearing loss, no nasal congestion, no nasal discharge, no hoarseness and no sore throat. Cardiovascular: no chest pain The patient presents with complaints of occasional episodes of mild palpitations. Respiratory: no cough, no shortness of breath during exertion, no shortness of breath at rest and no wheezing. Gastrointestinal: no abdominal pain, no blood in stools, no constipation, no diarrhea, no melena, no nausea, no rectal pain and no vomiting. Genitourinary: no dysuria, no change in urinary frequency, no urinary hesitancy, no feelings of urinary urgency and no vaginal discharge. Musculoskeletal: joint pain localized to one or more joints and myalgias, but as noted in HPI. Neurological: no dizziness, no headache, no numbness and no tingling. Psychiatric: no anxiety, no depression and no sleep disturbances. Active Problems Acute upper respiratory infection (465.9) (J06.9) Surgical History History of Bunionectomy History of Hysterectomy Family History Family history of malignant neoplasm of colon (V16.0) (Z80.0) Family history of hypertrophic cardiomyopathy (V17.49) (Z82.49) Family history of hypertrophic cardiomyopathy (V17.49) (Z82.49) Social History Current every day smoker (305.1) (F17.200) Does not have living will No illicit drug use Allergies No Known Drug Allergies Recorded By: Cortney Luna; 09/12/2013 3:29:56 PM Current Meds Medication NameInstructionReason Multi-Vitamins TABS Physical Exam Constitutional: Alert and in no acute distress. Well developed, well nourished. Head and Face: Head and face: Normal. Eyes: Normal external exam. Ears, Nose, Mouth, and Throat: External inspection of ears and nose: Carmelina (more content not included)... Normal [facility] TSH WITH REFLEX TO FREE T4 I F ABNORMALon 12-31-2021 TSH Qn 0.90 m[IU]/L Normal 0.44 - 3.98 [facility] Comment on above: Result Comment: TSH testing is performed using different testing methodology at [facility] than at other [facility]. Direct result comparisons should only be made within the same method. Performed By: #### T HYDS #### [address] [address] Tobacco Screening.on 022 Tobacco use status CPHS a) Yes [facility] Work Phone: Tobacco Screening. Yes [facility] Work Phone: VITAMIN B12on 12-31-2021 Cobalamin (Vitamin B12) [Mass/Vol] 219 pg/mL Normal 211 - 911 [facility] Comment on above: Performed By: #### V TB12 #### [address] [address] VITAMIN D, 25-HYDROXYon VITAMIN D, 25-HYDROXY 39 ng/mL Normal [facility] Comment on above: Result Comment: . DEFICIENCY: < 20 NG/ML INSUFFICIENCY: 20-29 NG/ML SUFFICIENCY: 30-100 NG/ML THIS ASSAY ACCURATELY QUANTIFIES THE SUM OF VITAMIN D3, 25-HYDROXY AND VIT D2,25-HYDROXY. Performed By: #### V TDOH #### [facility] [address] [place] [address] Vitamin B12, Serumon 022 Cobalamin (Vitamin B12) [Mass/Vol] 219 pg/mL 211 - 911 [facility] Work Phone: Vitamin D 25-Hydroxyon 12-31 25-hydroxyvitamin D3 [Mass/Vol] 39 ng/mL [facility] Work Phone: Comment on above: .DEFICIENCY: < 20 NG /MLINSUFFICIENCY: 20-29 NG/MLSUFFICIENCY: 30-100 NG/MLTHIS ASSAY ACCURATELY QUANTIFIES THE SUM OFVITAMIN D3, 25-HYDROXY AND VIT D2,25-HYDROXY. Phone Msgon 06-23-2018 Phone Msg - From: Anjali Stephenson MA Sent: 06/23/2018 13:40:39 EDT Subject: echo results left message test was ok no significant changes per Dr. Candelario [facility] Amb Office-Progress Notes-Pr verónica 06-16-2018 Protein mass conc Patient: MAYO HORTA Age: 38 years Sex: Female : 1980 Associated Diagnoses: None Author: JOE STERLING, RACHEL Visit Information Visit type: Scheduled follow-up. Accompanied by: No one. Source of history: Self. Referral source: Self. History limitation: None. Chief Complaint Follow-up appointment after the genetic study for obstructive cardiomyopathy which was positive. She denies any syncope but he still gets dizzy off and on and continue to have a palpitations and some vague chest pain. She has not been able to quit smoking although she has tried in the past. Chart and medications reviewed. Review of Systems Constitutional: No fever, No chills, No sweats. Eye: Negative. Ear/Nose/Mouth/Throat: Negative. Respiratory: No shortness of breath, No cough. Cardiovascular: No chest pain, No syncope. Gastrointestinal: No nausea, No vomiting. Genitourinary: Negative. Gynecologic Hematology/Lymphatics: No bruising tendency, No bleeding tendency. Endocrine: Negative. Musculoskeletal: Negative. Integumentary: No rash, No abrasions. Psychiatric: No anxiety, No depression. Health Status Allergies: Allergies (1) Active ReactionNo Known Allergies None Documented Current medications: No qualifying data available Problem list: Active Problems (3)Chest pain at rest Obstructive cardiomyopathy Smoker Histories Past Medical History: No qualifying data available Family History: No family history items have been selected or recorded. Procedure history: HYSTERECTOMY in 2014 at 34 Years. Social History Social & Psychosocial VjtikeQydbrdt87/02/2017 Use: Current Frequency: 1-2 times per gxpzuYkyas46/02/2017 Name: CAFFIENE Comment: 6 CUPS COFFEE DAILY - 06/01/2017 15:28 - Anjali Stephenson MA SSubstance Abuse06/01/2017 Risk Assessment: Denies Substance OaoslJmhtwbk50/02/2017 Use: 5-9 cigarettes (between 1 Type: Cigarettes. Physical Examination Temperature 97.3 (09:20)Systolic Blood Pressure 118 (09:32)Diastolic Blood Pressure 68 (09:32)Pulse 88 (09:20)SpO2 No resultRespiratory Rate No result VS/Measurements Documented vital signs, Vital Signs (last 24 hrs) Last Charted Heart Rate Peripheral 88 bpm (JUN 16 09:18)SBP 118 mmHg (JUN 16 09:32)DBP 68 mmHg (JUN 16 09:32)Weight 66 kg (JUN 16 09:18)Height 155 cm (JUN 16 09:18)BMI 27.47 (JUN 16 09:18) General: Alert and oriented, No acute distress. Skin: No cyanosis, Not jaundiced. Eye: Normal conjunctiva. HENT: Normocephalic. Neck: Supple, Non-tender, No carotid bruit, No jugular venous distention, No lymphadenopathy, No thyromegaly. Respiratory: Symmetrical chest wall expansion, No chest wall tenderness. Breath sounds: Bilateral, Anterior, Posterior, No wheezing, No crackles present. Cardiovascular: Normal rate, Regular rhythm, No murmur, No gallop, Good pulses equal in all extremities, Normal peripheral perfusion, No edema. Gastrointestinal: Soft, Non-tender, Normal bowel sounds, No organomegaly. Genitourinary: No costovertebral angle tenderness. Lymphatics: No lymphadenopathy neck, axilla, groin. Musculoskeletal: Normal range of motion, Normal strength, No tenderness, No deformity. Integumentary: Warm. Neurologic: Alert, Oriented, No focal deficits. Psychiatric: Cooperative, Normal judgment. Review / Management No qualifying data available Impression and Plan 1. Positive genetic testing for obstructive cardiomyopathy.2. Vague chest pain noncardiac.3. Palpitations off and on.4. Dizziness without any syncope.5. Smoker.Plan.1. Advised to quit smoking counseling done.2. Echocardiogram to be scheduled.3. Follow-up appointment1 year or after the echocardiogram if needed.Electronically signed by Dr. Effie Diaz. Normal [facility] Provider Letter - Ambulatory on 06-16-2018 Jimi yari conc HEIDI SR, [address] [place] [id number]: MAYO IRVIN - 1980Dejos[address] This document is confidential and intended solely for the use of the individual or entity to which they are addressed. If you are not the named addressee, please disregard and do not disseminate, distribute or copy this information. If you are not the intended recipient you are notified that any disclosure of this information and its contents are strictly prohibited.If you have any questions about this document, please contact the office.Sincerely,JOE STERLING, [facility] Medical CenterThe following document(s) were included in the letter:June 16, 2018 09:33:00 EDT - (06/16/2018) Cardiology Office Note with BMI Normal [facility] Vital Signs Date Time Vital Sign Value Performing Clinician Nia mann 01-11-2025 08:42-0400 Body height 154.[address] Deborah Badillo MD Work Phone: [facility] 01-11-2025 08:42-0400 Body mass index (BMI) [Ratio] 28.1 kg/m2 Dr. Deborah Badillo MD Work Phone: [facility] 01-11-2025 08:42-0400 Body weight 67.[address] Deborah Badillo MD Work Phone: [facility] 01-11-2025 08:42-0400 Diastolic blood pressure 77 mm[Hg] Dr. Deborah Badillo MD Work Phone: [facility] 01-11-2025 08:42-0400 Heart rate 80 /min Dr. Deborah Badillo MD Work Phone: [facility] 01-11-2025 08:42-0400 Respiratory rate 17 /min Dr. Deborah Badillo MD Work Phone: [facility] 01-11-2025 08:42-0400 SaO2% (BldA) [Mass fraction] 98 % Dr. Deborah Badillo MD Work Phone: [facility] 01-11-2025 08:42-0400 Systolic blood pressure 117 mm[Hg] Dr. Deborah Badillo MD Work Phone: [facility] 01-09-2025 08:02-0400 Body mass index (BMI) [Ratio] 28.2 kg/m2 Dr. Deborah Badillo MD Work Phone: [facility] 01-09-2025 08:02-0400 Body weight 67.[address] Deborah Badillo MD Work Phone: [facility] 01-09-2025 08:02-0400 Diastolic blood pressure 79 mm[Hg] Dr. Deborah Badillo MD Work Phone: [facility] 01-09-2025 08:02-0400 Systolic blood pressure 141 mm[Hg] Dr. Deborah Badillo MD Work Phone: [facility] 05-21-2023 10:53-0400 Body height 157.5 cm Shreyas FRANCE Work Phone: [facility] 05-21-2023 10:53-0400 Body mass index (BMI) [Ratio] 26.76 kg/m2 Shreyas FRANCE Work Phone: [facility] 05-21-2023 10:53-0400 Body temperature 97.11 [degF] Shreyas Tripp TOPOLOGY PROFESSOR-ACTUARIAL ANALYST Work Phone: [facility] 05-21-2023 10:53-0400 Body weight 66.36 kg Shreyas Tripp TOPOLOGY PROFESSOR-ACTUARIAL ANALYST Work Phone: [facility] 05-21-2023 10:53-0400 Diastolic blood pressure 77 mm[Hg] Shreyas Tripp TOPOLOGY PROFESSOR-ACTUARIAL ANALYST Work Phone: [facility] 05-21-2023 10:53-0400 Heart rate 72 /min Shreyas Tripp TOPOLOGY PROFESSOR-ACTUARIAL ANALYST Work Phone: [facility] 05-21-2023 10:53-0400 Systolic blood pressure 106 mm[Hg] Shreyas Tripp TOPOLOGY PROFESSOR-ACTUARIAL ANALYST Work Phone: [facility] 03-27-2022 08:03-0400 Body height 157.48 cm Shreyas Stilld Work Phone: [facility] Work Phone: 03-27-2022 08:03-0400 Body mass index (BMI) [Ratio] 27.14 kg/m2 Shreyas Tripp Work Phone: [facility] Work Phone: 03-27-2022 08:03-0400 Body surface area Derived from formula 1.68 m2 Shreyas Tripp Work Phone: [facility] Work Phone: 03-27-2022 08:03-0400 Body temperature 98.1 [degF] Shreyas Stilld Work Phone: [facility] Work Phone: 03-27-2022 08:03-0400 Body weight 67.31 kg Shreyas Tripp Work Phone: [facility] Work Phone: 03-27-2022 08:03-0400 Diastolic blood pressure 85 mm[Hg] Shreyas Stilld Work Phone: [facility] Work Phone: 03-27-2022 08:03-0400 Heart rate 102 /min Shreyas Stilld Work Phone: [facility] Work Phone: 03-27-2022 08:03-0400 Systolic blood pressure 119 mm[Hg] Shreyas Raines Josee Work Phone: [facility] Work Phone: 02-27-2022 13:20-0400 Body height 157.48 cm Shreyas Raines Marcell Work Phone: [facility] Work Phone: 02-27-2022 13:20-0400 Body mass index (BMI) [Ratio] 27.33 kg/m2 Shreyas Stilld Work Phone: [facility] Work Phone: 02-27-2022 13:20-0400 Body surface area Derived from formula 1.69 m2 Shreyas Raines Marcell Work Phone: [facility] Work Phone: 02-27-2022 13:20-0400 Body weight 67.79 kg Shreyas Stilld Work Phone: [facility] Work Phone: 02-27-2022 13:20-0400 Diastolic blood pressure 70 mm[Hg] Shreyas Raines Marcell Work Phone: [facility] Work Phone: 02-27-2022 13:20-0400 Heart rate 68 /min Shreyas Raines Marcell Work Phone: [facility] Work Phone: 02-27-2022 13:20-0400 Systolic blood pressure 112 mm[Hg] Shreyas Raines Marcell Work Phone: [facility] Work Phone: 01-28-2022 08:57-0400 Body height 157.48 cm Shreyas Stilld Work Phone: [facility] Work Phone: 01-28-2022 08:57-0400 Body mass index (BMI) [Ratio] 27.98 kg/m2 Shreyas Stilld Work Phone: [facility] Work Phone: 01-28-2022 08:57-0400 Body surface area Derived from formula 1.71 m2 Shreyas Stilld Work Phone: [facility] Work Phone: 01-28-2022 08:57-0400 Body temperature 98.3 [degF] Shreyas Stilld Work Phone: [facility] Work Phone: 01-28-2022 08:57-0400 Body weight 69.4 kg Shreyas Stilld Work Phone: [facility] Work Phone: 01-28-2022 08:57-0400 Diastolic blood pressure 90 mm[Hg] Shreyas Stilld Work Phone: [facility] Work Phone: 01-28-2022 08:57-0400 Heart rate 67 /min Shreyas Stilld Work Phone: [facility] Work Phone: 01-28-2022 08:57-0400 Respiratory rate 18 /min Shreyas Raines Marcell Work Phone: [facility] Work Phone: 01-28-2022 08:57-0400 SaO2% (BldA) [Mass fraction] 99 % Shreyas Raines Marcell Work Phone: [facility] Work Phone: 01-28-2022 08:57-0400 Systolic blood pressure 126 mm[Hg] Shreyas Tripp Work Phone: [facility] Work Phone: 12-31-2021 09:33-0400 Body height 158.75 cm Srheyas Stilld Work Phone: [facility] Work Phone: 12-31-2021 09:33-0400 Body mass index (BMI) [Ratio] 27.98 kg/m2 Shreyas Stilld Work Phone: [facility] Work Phone: 12-31-2021 09:33-0400 Body surface area Derived from formula 1.73 m2 Shreyas Stilld Work Phone: [facility] Work Phone: 12-31-2021 09:33-0400 Body weight 70.51 kg Shreyas Tripp Work Phone: [facility] Work Phone: 12-31-2021 09:33-0400 Diastolic blood pressure 92 mm[Hg] Shreyas Stilld Work Phone: [facility] Work Phone: 12-31-2021 09:33-0400 Heart rate 76 /min Shreyas Stilld Work Phone: [facility] Work Phone: 12-31-2021 09:33-0400 Systolic blood pressure 132 mm[Hg] Shreyas Stilld Work Phone: [facility] Work Phone: Encounters Encounter Date Encounter Type Care Provider Facility Start: 02-03-2025 ambulatory Jack Arredondo Facility :[facility] Start: 01-11-2025 End: 01-11-[address] Jack Arredondo MD -[facility] Work Phone: Start: 01-11-2025 End: 01-11-[address] Deborah Badillo MD Work Phone: [facility] Work Phone: Start: 01-10-2025 End: 01-10-[address] Deborah Badillo MD Work Phone: [facility] Work Phone: Start: 01-10-2025 End: 01-10-[address] Deborah Badillo MD -Lab, [facility] Start: 01-09-2025 End: 01-10-[address] Deborah Badillo MD Work Phone: [facility] Work Phone: Start: 01-09-2025 End: 01-09-[address] Deborah Badillo MD -Laboratory, Specimen Work Phone: Start: 01-09-2025 End: 01-09-[address] Deborah Badillo MD -[facility] Work Phone: Start: 01-09-2025 End: 01-09-[address] Deborah Badillo MD [facility] Start: 01-09-2025 End: 01-09-2025 ambulatory Deborah Badillo Facility:[facility] Start: 01-09-2025 End: 01-09-2025 ambulatory Deborah Badillo Facility:[facility] Start: 05-21-2023 End: 05-21-2023 Office outpatient visit 15 minutes Shreyas Tripp TOPOLOGY PROFESSOR-ACTUARIAL ANALYST Work Phone: [facility] Comment on above: Loud snoring (Primar y Dx); Daytime sleepiness; Urticaria Start: 05-21-2023 End: 05-21-2023 ambulatory [facility] Start: 05-20-2023 End: 05-21-2023 ambulatory [facility] Start: 11-28-2022 End: 11-28-2022 ambulatory [facility] Start: 11-22-2022 End: 11-25-2022 ambulatory SHREYAS TRIPP [facility] Start: 11-21-2022 End: 11-22-2022 ambulatory SHREYAS TRIPP [facility] Start: 04-21-2022 AUDIT Shreyas Stilld Work Phone: [facility] Work Phone: Start: 04-17-2022 Chart Update Shreyas Raines Josee Work Phone: [facility] Work Phone: Start: 02-27-2022 Office outpatient vi sit 15 minutes Shreyas Raines Josee Work Phone: [facility] Work Phone: Start: 01-28-2022 Office outpatient vi sit 15 minutes Shreyas Raines Marcell Work Phone: [facility] Work Phone: Start: 01-22-2022 ECHO, Provider: WALTER PINA ECHO 1,SMCECHO1, Status: Pen, Time: 8:00 AM Shreyas Raines Josee Work Phone: [facility] Work Phone: Start: 01-21-2022 AUDIT Shreyas Raines Marcell Work Phone: [facility] Work Phone: Start: 01-02-2022 Chart Update Shreyas Raines Marcell Work Phone: [facility] Work Phone: Start: 12-31-2021 Patient encounter procedure Shreyas Raines Marcell Work Phone: [facility] Work Phone: Start: 12-31-2021 Tobacco use cessatio n intermediate 3-10 minutes Shreyas L Marcell Work Phone: [facility] Work Phone: Start: 06-23-2018 Patient encounter HEIDI SR Facility:[facility] Start: 06-22-2018 End: 06-23-2018 Patient encounter [facility] Facility:[facility] Start: 06-16-2018 End: 06-17-2018 Patient encounter [facility] Facility:[facility] Procedures Date Procedure Procedure Detail Performing Clinician Start: 01-10-2025 Vitamin D, 25-hydrox y measurement Dr. Deborah Badillo MD Work Phone: Comment on above: Vitamin D StatusDefi ciency: <20 ng/mL (50nmol/L)Insufficiency: 20-30 ng/mL (50-75 nmol/L)Sufficiency: 30-100 ng/mL (75-250 nmol/L)Toxicity: >100 ng/mL (>250 nmol/L) Start: 01-09-2025 Liquid based cervica l cytology screening Dr. Deborah Badillo MD Work Phone: Comment on above: NEGATIVE FOR INTRAEP ITHELIAL LESION OR MALIGNANCY. This liquid based Th inPrep(R) pap test was screened withthe use of an image guided system. The HPV DNA reflex c riteria were not met with this specimenresult therefore, no HPV testing was performed.Performed at: [address] [id number] Director: Amy Ball MD, Phone: [phone] Start: 05-20-2023 CBC W Auto Different ial panel - Blood SHERYAS JOSEE Start: 05-20-2023 Comprehensive metabo lic 2000 panel - Serum or Plasma SHREYAS JOSEE Start: 05-20-2023 CORTISOL SHREYAS JOSEE Start: 05-20-2023 Cyanocobalamin vitamin b-12 SHREYAS JOSEE Start: 05-20-2023 VITAMIN D 1,25 DIHYDROXY SHREYAS JOSEE Start: 11-21-2022 CBC panel - Blood by Automated count SHREYAS JOSEE Start: 11-21-2022 Cyanocobalamin vitamin b-12 SHREYAS JOSEE Start: 11-21-2022 VITAMIN D 25-HYDROXY,TOTAL SHREYAS JOSEE Start: 01-22-2022 Echocardiography Shreyas L Marcell Work Phone: Start: 12-31-2021 Lipid 1996 panel - S lee or Plasma Shreyas Marcell TOPOLOGY PROFESSOR-ACTUARIAL ANALYST Work Phone: Start: 07-18-2004 Microscopic observat ion [Identifier] in Cervix by Cyto stain Shreyas Tripp TOPOLOGY PROFESSOR-ACTUARIAL ANALYST Work Phone: Excision of bunion Shreyas Raines Yanna add Work Phone: Hysterectomy Shreyas Raines Josee Work Phone: Plan of Treatment Date Care Activity Detail Author Start: 2029 Zoster Vaccines (1 o f 2) Zoster Vaccines (1 of 2) [facility] Start: 12-31-2026 Lipid panel Lipid Panel [facility] Start: 01-09-2025 Patient referral [facility] Work Phone: Start: 01-09-2025 Liquid based cervica l cytology screening [facility] Start: 05-21-2023 End: 05-21-2024 Home sleep apnea test (HSAT) Home sleep apnea test (HSAT) [facility] Routine Loud snoring Daytime sleepiness Expected: 05/21/2023 (Approximate), Expires: 05/21/2024 [facility] Service Area Work Phone: Comment on above: Expected: 05/21/2023 (Approximate), Expires: 05/21/2024 Start: 05-01-2023 Influenza vaccination Influenza Vacc ine (#1) [facility] Start: 03-27-2022 FUV, Provider: Shreyas Tripp, Status: Pen, Time: 1:30 PM FUV, Provider: Shreyas Tripp, Status: Pen, Time: 1:30 PM [facility] Work Phone: Start: 11-28-2020 COVID-19 Vaccine (2 - Pfizer series) COVID-19 Vaccine (2 - Pfizer series) [facility] Start: 2019 Screening for malign ant neoplasm of breast Mammogram [facility] Start: 12-14-2007 MMR Vaccines (1 of 1 - Standard series) MMR Vaccines (1 of 1 - Standard series) [facility] Start: 07-18-2007 Screening for malign ant neoplasm of cervix [facility] Start: 2001 DTaP/Tdap/Td Vaccine s (1 - Tdap) DTaP/Tdap/Td Vaccines (1 - Tdap) [facility] Start: 2000 Screening for malign ant neoplasm of cervix HPV/Cotest [facility] Start: 1997 Diabetes mellitus screening Diabetes Screening [facility] Start: 1997 [facility]: [facility] Hepatitis B Vaccines (1 of 3 - 3-dose series) Hepatitis B Vaccines (1 of 3 - 3-dose series) [facility] Start: 1979 HIV screening HIV Screening [facility] Start: 1979 Yearly Adult Physical Yearly Adult P hysical [facility] Colonoscopy [facility] MG Breast - bilatera l Screening [facility] Path report.final Dx Spec [facility] Patient referral [facility] Work Phone: Immunizations Immunization Date Immunization Notes Care Provider Fa cility 07-01-2023 influenza, injectabl e, quadrivalent, preservative free Dr. Deborah Badillo MD Work Phone: [facility] 10-03-2020 Pfizer-BioNTech COVID-19 Vacc 30 MCG/0.3ML Intramuscular Suspension Shreyas Tripp Work Phone: [facility] Work Phone: 11-16-2007 varicella virus vaccine Adelina Tripp Work Phone: [facility] Work Phone: Payers Date Payer Category Payer Self-pay 2017 Private Health Insurance [employer]ET[employer] A ETNA [facility] [id number] 2017-Present [address] [place] [address] [id number] 2017 Private Health Insurance [id number] 2008 Private Health Insurance [id number] 1979 Unknown [id number] 1979 Unknown [id number] .159 1979 Unknown [id number] .159 1979 Unknown [id number] .[id number] 1979 Unknown [id number] .[id number] 1979 Unknown [id number] [id number] .[id number] 1979 Unknown [id number] [id number] .[id number] 1979 Unknown [id number] [id number] .[id number] Unknown [employer] Unknown [id number] .462 Unknown [id number] .462 Unknown [id number] .462 Unknown [id number] [id number] .462 Unknown [id number] .462 Social History Date Type Detail Facility Current every day smoker Current every day smoker [facility] Work Phone: Tobacco smoking status OHIS Tobacco smoking consumption unknown [facility] Work Phone: Start: 1980 Sex Assigned At Not on file [facility] Work Phone: Gender identity Not on file [facility] Work Phone: Start: 01-04-2025 Tobacco smoking status NHIS Ex-smoker (finding) [facility] Start: 1980 Sex Assigned At Female [facility] Hospital Discharge instructions 01-11-2025 Note Date & Type Note Facility 01-11-2025 Hospital Discharge instructions Ambulatory OrdersColonoscopy Time Frame: 01/11/25, Location: Determined By Patient [facility] Work Phone: Evaluation note 01-09-2025 Note Date & Type Note Facility 01-09-2025 Evaluation note Diagnosis Onset Date Resolution Family history of colon cancer acute January 09, 2025 7:47am Encounter for routine gynecological examination noneactive January 09, 2025 7:47am [facility] Work Phone: Evaluation note 01-09-2025 Note Date & Type Note Facility 01-09-2025 Evaluation note Diagnosis Onset Date Resolution Family history of colon cancer acute January 09, 2025 7:47am Encounter for routine gynecological examination noneactive January 09, 2025 7:47am Encounter for screening for malignant neoplasm of colon acute January 11, 2025 8:24am Family history of colon cancer acute January 11, 2025 8:24am [facility] Work Phone: History of Present illness Narrative 05-21-2023 Shreyas Tripp, TOPOLOGY PROFESSOR-ACTUARIAL ANALYST - 05/21/2023 3:00 PM EDT Note Date & Type Note Facility 05-21-2023 History of Present illness Narrative Subjective Patient ID: Mayo Horta is a 42 y.o. female who presents for Fatigue. Feeling tired all day, feels tired upon waking in the AM Bravo report daytime sleepiness and loud snoring. Reviewed labs from 05/20/23 with patient, B12 and vitamin D normal, blood counts also normal Also has Complaints of hives with temperature changes particularly when hot, has hives after shower Resolve about 1 hour spontaneously They occur temperature and pressure Example when showering in hot water hives occur Button of pants touching skin causes hives First noticed hives in early s have worsened over the years No prior testing, manager leasing, or medication Review of Systems Constitutional: Positive for fatigue. Negative for activity change and fever. HENT: Negative. Eyes: Negative for visual disturbance. Respiratory: Negative for shortness of breath and wheezing. Cardiovascular: Negative for chest pain, palpitations and leg swelling. Gastrointestinal: Negative for diarrhea, nausea and vomiting. Endocrine: Negative for cold intolerance and heat intolerance. Musculoskeletal: Negative for arthralgias and myalgias. Skin: hives Neurological: Negative for dizziness, light-headedness and headaches. Objective BP 106/77 (Patient Position: Sitting) Pulse 72 Temp 36.2 C (97.1 F) Ht 1.575 m (5' 2) Wt 66.4 kg (146 lb 4.8 oz) BMI 26.76 kg/m Physical Exam Vitals reviewed. Constitutional: General: She is not in acute distress. Appearance: Normal appearance. She is normal weight. Cardiovascular: Rate and Rhythm: Normal rate and regular rhythm. Pulmonary: Effort: Pulmonary effort is normal. Breath sounds: Normal breath sounds. Skin: General: Skin is warm and dry. Neurological: Mental Status: She is alert and oriented to person, place, and time. Assessment/Plan Diagnoses and all orders for this visit: Loud snoring - Home sleep apnea test (HSAT); Future Daytime sleepiness - Home sleep apnea test (HSAT); Future Urticaria - fexofenadine (Noreen) 180 mg tablet; Take 1 tablet (180 mg) by mouth once daily. Will follow up as needed or sooner depending on test result documented in this encounter [facility] Work Phone: History of Present illness Narrative 01-27-2022 Note Date & Type Note Facility 01-27-2022 History of Present illness Narrative Mayo is a 41 yo female her today to follow up on weight management. Mayo reports 7 lb weight loss over last month. She continue to follow low sugar, low calorie healthy diet. She is exercising 4-5 times a week.She is frustrated with weight loss was hoping for more. Encouragement given. [facility] Work Phone: History of Present illness Narrative 01-27-2022 Note Date & Type Note Facility 01-27-2022 History of Present illness Narrative Mayo is a 41 yo female her today to follow up on weight management. Mayo reports 7 lb weight loss over last month. She continue to follow low sugar, low calorie healthy diet. She is exercising 4-5 times a week.She is frustrated with weight loss was hoping for more. Encouragement given. 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 Mayo reports her father and brother from hypertropic cardiomyopathy. Her brother was age 26 which prompted family to undergo genetic testing and five of the sibling have hypertropic cardiomyopathy. She states she is supposed to have echo done annually and follow with cardiology. She has not seen cardiology nor had echo in over 1 year. She has not seen OBGYN in over 2 years.Does exercise daily and follow healthy diet. She has not had any changes in diet or activity however has gained 20 lb in 6 months, complains of chronically cold. She has bilateral hip pain from running on treadmill. 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 Mayo reports her father and brother from hypertropic cardiomyopathy. Her brother was age 26 which prompted family to undergo genetic testing and five of the sibling have hypertropic cardiomyopathy. She states she is supposed to have echo done annually and follow with cardiology. She has not seen cardiology nor had echo in over 1 year. She has not seen OBGYN in over 2 years.Does exercise daily and follow healthy diet. She has not had any changes in diet or activity however has gained 20 lb in 6 months, complains of chronically cold. She has bilateral hip pain from running on treadmill. She does report palpitations about twice a week and does consume caffeine daily.She denies any recent illness, no recent hospitalizations. She is concerned with weight gain, checking on labs and echocardiogram to monitor her cardiomyopathy. [facility] Work Phone: History of Present illness Narrative Note Date & Type Note Facility History of Present illness Narrative I have personally reviewed the [place]AR[place] report for MAYO HORTA. I have considered the risks of abuse, dependence, addiction and diversion.I have the following concerns: no OARRS report, no prior controlled substances prescribed.Controlled Substance Agreement:I have printed this form and reviewed each line item with the patient and the patient has verbalized understanding.Date of the last Controlled Substance Agreement: 01/28/22ANOREXIANTSWhat is the patient s goal of therapy? BMI goal 25.Is this being achieved with current treatment? initiating [place] today.Before starting treatment: I have assessed the patient s continuing efforts to lose weight, I have assessed the patient s dedication to the treatment program and the response to treatment and I have assessed the presence or absence of contraindications, adverse effects, and indicators of possible substance abuse that would necessitate cessation of treatment utilizing controlled substance.Mayo is a 41 yo female, her today for follow up. She is interested in weight loss assistance, She is engaged in an exercise program 3-5 times a week. and following a healthy diet. She is interested in starting on Adipex-P for additional weight loss.Labs, EKG and Echo were in normal range. [facility] Work Phone: Summary Purpose Family History No Family History Records FoundUnknown Family Member Name Dates Details Family history of malignant neoplasm of colon: Mother(V16.0, Z80.0) Status:Active Family history of hypertroph ic cardiomyopathy: Father, Brother(V17.49, Z82.49) Status:Active Unknown Family Member Name Dates Details Family history of malignant neoplasm of colon: Mother(V16.0, Z80.0) Status:Active Family history of hypertroph ic cardiomyopathy: Father, Brother(V17.49, Z82.49) Status:Active Unknown Family Member Name Dates Details Family history of malignant neoplasm of colon: Mother(V16.0, Z80.0) Status:Active Family history of hypertroph ic cardiomyopathy: Father, Brother(V17.49, Z82.49) Status:Active Unknown Family Member Name Dates Details Family history of hypertroph ic cardiomyopathy: Father, Brother(V17.49, Z82.49) Status:Active Family history of malignant neoplasm of colon: Mother(V16.0, Z80.0) Status:Active Unknown Family Member Name Dates Details Family history of malignant neoplasm of colon: Mother(V16.0, Z80.0) Status:Active Family history of hypertroph ic cardiomyopathy: Father, Brother(V17.49, Z82.49) Status:Active Unknown Family Member Name Dates Details Family history of malignant neoplasm of colon: Mother(V16.0, Z80.0) Status:Active Family history of hypertroph ic cardiomyopathy: Father, Brother(V17.49, Z82.49) Status:Active Unknown Family Member Name Dates Details Family history of malignant neoplasm of colon: Mother(V16.0, Z80.0) Status:Active Family history of hypertroph ic cardiomyopathy: Father, Brother(V17.49, Z82.49) Status:Active Unknown Family Member Name Dates Details Family history of malignant neoplasm of colon: Mother(V16.0, Z80.0) Status:Active Family history of hypertroph ic cardiomyopathy: Father, Brother(V17.49, Z82.49) Status:Active Relationship Condition Age at Onset Recorded Date/T de[place] mother Malignant neoplasm of colon Unknown Malignant neoplasm of appendix 57 father Depression Unknown Hypertrophic cardiomyopathy Unknown brother Hypertrophic cardiomyopathy Unknown sister Hypertrophic cardiomyopathy Unknown Advance Directives No Advanced Directives Records FoundNo Advanced Directives Records FoundNo Advanced Directives Records FoundNo Advanced Directives Records FoundNo Advanced Directives Records FoundNo Advanced Directives Records FoundNo Advanced Directives Records Found 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) January 09, 2025 7:47a m COLONOSCOPY January 11, 2025 8:24a m Reason for Visit Admit Date Family history of colon cancer January 09, 2025 7:47am Encounter for routine gynecological exam ination January 09, 2025 7:47am Reason for Visit Admit Date Family history of colon cancer January 09, 2025 7:47am Encounter for routine gynecological exam ination January 09, 2025 7:47am Encounter for screening for malignant ne oplasm of colon January 11, 2025 8:24am Family history of colon cancer January 11, 2025 8:24am Additional Source Comments INFORMATION SOURCE (unrecogn ized section and content) DATE CREATED AUTHOR 07/19/[address] [facility] DATE CREATED AUTHOR AUTHOR'S ORGANIZ ATION 03/30/2022 [facility] DATE CREATED AUTHOR AUTHOR'S ORGANIZ ATION 03/30/2022 [employer] DATE CREATED AUTHOR AUTHOR'S ORGANIZ ATION 05/25/[address] [facility] DATE CREATED AUTHOR AUTHOR'S ORGANIZ ATION 05/25/2023 [facility] DATE CREATED AUTHOR AUTHOR'S ORGANIZ ATION 06/01/2023 [facility] DATE CREATED AUTHOR AUTHOR'S ORGANIZ ATION 02/03/2025 [place] Reason for Visit (unrecogniz ed section and content) Reason Comments Fatigue Care Teams (unrecognized sec tion and content) Saw Grinder Relationship Specialty Start Date End Date Shreyas Tripp APRN-ACTUARIAL ANALYST [address] [facility], [facility] [address] [place] [address] PCP - General 12/31/21 Shreyas Tripp, TOPOLOGY PROFESSOR-ACTUARIAL ANALYST [address] [facility], [place] [address] [id number] PCP - Bishop MANNO PCP 05/01/22 Team Status: Inactive Member Role Status Dates Dr. Deborah Badillo MD Attending Provider Active Start: January 09, 2025 End: January 09, 2025 Team Status: Active Member Role Status Dates Dr. Deborah Badillo MD Attending Provider Active Start: January 09, 2025 Dr. Deborah Badillo MD Referring Provider Active Start: January 09, 2025 Team Status: Active Member Role Status Dates Dr. Deborah Badillo MD Attending Provider Active Start: January 10, 2025 Dr. Deborah Badillo MD Referring Provider Active Start: January 10, 2025 Team Status: Inactive Member Role Status Dates Dr. Jack Arredondo MD Attending Provider Active Start: January 11, 2025 End: January 11, 2025 Team Status: Inactive Member Role Status Dates Dr. Deborah Badillo MD Attending Provider Active Start: January 09, 2025 End: January 09, 2025 Dr. Deborah Badillo MD Referring Provider Active Start: January 09, 2025 End: January 09, 2025 Team Status: Inactive Member Role Status Dates Dr. Deborah Badillo MD Attending Provider Active Start: January 10, 2025 End: January 10, 2025 Dr. Deborah Badillo MD Referring Provider Active Start: January 10, 2025 End: January 10, 2025 Goals (unrecognized section and content) Goals may be documented in a n alternate sectionGoals may be documented in an alternate sectionGoals may be documented in an alternate section FOR RECORDS PERTAINING TO PATIENTS WHO ARE OR HAVE BEEN ENROLLED IN A CHEMICAL DEPENDENCY/SUBSTANCEABUSE PROGRAM, SOME INFORMATION MAY BE OMITTED. This clinical summary was aggregated from multiple sources. Caution should be exercised in using it in the provision of clinical care. This summary normalizes information from multiple sources, and as a consequence, information in this document may materially change the coding, format and clinical context of patient data. In addition, data may be omitted in some cases. CLINICAL DECISIONS SHOULD BE BASED ON THE PRIMARY CLINICAL RECORDS. [employer] provides no warranty or guarantee of the accuracy or completeness of information in this document.
[2025-02-03] MEDS: Lactated Ringers 1,000 ML 15 ML IV (07:04)
--- NOTE | 2025-02-03 07:17 | PCM.HP.STD ---
HPI - General General Date of Admission: 02/03/25 Date of Service: 02/03/25 Chief Complaint: screening colonoscopy HPI Narrative The patient is a 44-year-old female who presents today for a colonoscopy. This will be her first colonoscopy. She does have a family history of appendiceal cancer. Her mom of appendiceal cancer in her 50s. Patient also has a family history of cardiomyopathy as well. She herself denies any significant GI issues or problems other than some occasional right upper quadrant pain that she attributes to her gallbladder. [facility] Medical History Wears contact lenses Wears glasses Post-menopausal Alcohol use Former smoker Cardiology follow-up encounter History of echocardiogram Hypertrophic cardiomyopathy H/O headache Home Medications ?Medication ?Instructions ?Recorded ?Last Taken ?Type omega-3 fatty acids 1,000 mg 1,000 mg PO QDAY 01/04/25 01/26/25 History capsule turmeric 400 mg capsule 400 mg PO DAILY 01/04/25 01/26/25 History vitamin D3 1,250 mcg (50,000 1 cap PO DAILY 01/04/25 01/26/25 History unit)-vitamin K2 200 mcg capsule Saccharomyces boulardii 250 mg 250 mg PO QDAY 01/11/25 01/26/25 History capsule (Daily Probiotic (S. boulardii)) multivitamin (Daily Multi-Vitamin 1 tab PO DAILY 02/01/25 01/27/25 History tablet) Allergy/AdvReac Type Severity Reaction Status Date / Time No Known Allergies Allergy Verified 02/03/25 06:52 Family History Mother Colon cancer Cancer of appendix, Onset Age: 57 Father Depression Hypertrophic cardiomyopathy Brother Hypertrophic cardiomyopathy Sister Hypertrophic cardiomyopathy Brother Hypertrophic cardiomyopathy Sister Hypertrophic cardiomyopathy Surgical History History of bunionectomy Hx of hysterectomy Social History Smoking Status: Former smoker alcohol intake: current alcohol intake frequency: holidays/special occasions only substance use type: does not use what type of physical activity do you participate in: running and weight training frequency: 3-4 times per week Vital Signs Vital Signs Vital Signs: 02/03/25 06:54 02/03/25 06:57 Temperature 98.4 F Temperature Source Temporal Pulse Rate 75 Respiratory Rate 16 Respiratory Pattern Normal Blood Pressure 120/84 H Blood Pressure Mean 96 Blood Pressure Source Monitor Blood Pressure Position Semi-Fowlers Blood Pressure Location Left Arm Pulse Ox 100 Oxygen Delivery Method Room Air Weight Weight: 143 lb 12.8 oz Body Mass Index (BMI) 27.1 Physical Exam Const alert, oriented x3 and no apparent distress Assessment & Plan Assessment/Plan (1) Encounter for screening for malignant neoplasm of colon: (2) Family history of colon cancer: PLAN: plan for colonoscopy today
--- NOTE | 2025-02-03 07:57 | PCM.POST.ANE ---
Anesthesia: Postop Eval I Current Vital Signs Temperature: 97.5 F Pulse Rate: 69 Blood Pressure: 110/75 Respiratory Rate: 16 Pulse Ox: 100 Oxygen Delivery Method: Room Air Assessment Airway patent: Yes Spontaneous unlabored respirations: Yes Mental status: Awake nausea: No Vomiting: No Anesthesia Complication: No Fluid Hydration Crystalloid volume administer (ml): 500 Total IV fluid infused: 500 Progress Note Anesthesia document: Postop Eval 1 completed: Yes
--- NOTE | 2025-02-03 08:06 | OP.CCLET_ITS ---
02/03/2025 Deborah Badillo [address] [place] [address] Re : Colonoscopy procedure for Daly Kempnoemy Dear Dr. Badillo This procedure was performed on Monday, February 03, 2025. My impressions and recommendations are as follows: Impressions : - Internal hemorrhoids. - The examination was otherwise normal on direct and retroflexion views. - No specimens collected. Recommendations : - Discharge patient to home (ambulatory). - High fiber diet. - Repeat colonoscopy in 5 years for screening purposes. - Return to my office PRN. - Continue present medications. My findings are described in the full procedure note, which is enclosed. If I can be of further assistance, please feel free to contact me at . Sincerely, Jack Arredondo MD 02/03/2025 8:05:55 AM This report has been signed electronically.
--- NOTE | 2025-02-03 08:06 | OP.COLON_ITS ---
Patient Name: Dlay Horta Procedure Date: 02/03/2025 7:14 AM Date of : 1980 Age: 44 Procedure: Colonoscopy Indications: Screening in patient at increased risk: Family history of 1st-degree relative with colorectal cancer before age 60 years Providers: Jack Arredondo MD Referring MD: Jack Arredondo MD Medicines: Monitored Anesthesia Care Patient Profile: Refer to note in patient chart for documentation of history and physical. Last Colonoscopy: none. The patient's first colonoscopy is today. Complications: No immediate complications. Estimated blood loss: None. Procedure: Pre-Anesthesia Assessment: - Prior to the procedure, a History and Physical was performed, and patient medications and allergies were reviewed. The patient's tolerance of previous anesthesia was also reviewed. The risks and benefits of the procedure and the sedation options and risks were discussed with the patient. All questions were answered, and informed consent was obtained. Prior Anticoagulants: The patient has taken no anticoagulant or antiplatelet agents. ASA Grade Assessment: I - A normal, healthy patient. After reviewing the risks and benefits, the patient was deemed in satisfactory condition to undergo the procedure. After I obtained informed consent, the scope was passed under direct vision. Throughout the procedure, the patient's blood pressure, pulse, and oxygen saturations were monitored continuously. The colonoscope was introduced through the anus and advanced to the cecum, identified by appendiceal orifice and ileocecal valve. The ileocecal valve, appendiceal orifice, and rectum were photographed. The entire colon was well visualized. The colonoscopy was performed without difficulty. The patient tolerated the procedure well. The quality of the bowel preparation was good. Moderate Sedation: See the other procedure note for documentation of moderate sedation with intraservice time. Scope In: 7:32:24 AM Scope Withdrawal Time 0 hours 9 minutes 51 seconds Scope Out: 7:50:33 AM Total Procedure Duration Time 0 hours 18 minutes 9 seconds Findings: The perianal and digital rectal examinations were normal. Internal hemorrhoids were found during anoscopy. The hemorrhoids were mild. The exam was otherwise without abnormality on direct and retroflexion views. Impression: - Internal hemorrhoids. - The examination was otherwise normal on direct and retroflexion views. - No specimens collected. Recommendation: - Discharge patient to home (ambulatory). - High fiber diet. - Repeat colonoscopy in 5 years for screening purposes. - Return to my office PRN. - Continue present medications. Procedure Code(s): --- Professional --- 06081, Colonoscopy, flexible; diagnostic, including collection of specimen(s) by brushing or washing, when performed (separate procedure) Diagnosis Code(s): --- Professional --- K64.8, Other hemorrhoids Z80.0, Family history of malignant neoplasm of digestive organs CPT copyright 2021 [employer]. All rights reserved. The codes documented in this report are preliminary and upon creeler review may be revised to meet current compliance requirements. Jack Arredondo MD 02/03/2025 8:05:55 AM This report has been signed electronically. Number of Addenda: 0 Note Initiated On: 02/03/2025 7:14 AM
--- NOTE | 2025-02-03 08:23 | POSTOPAN2_ITS ---
Anesthesia Postop Eval I Sum Postop Eval Completion status Anesthesia document: Postop Eval 1 completed: Yes Anesthesia Postop Eval I Summary Anesthesia Postop Eval I Summary: Anesthesia Postop Eval I: Assessment Summary Airway patent Yes 02/03/25 07:57 BUTADIENE CONVERTER OPERATOR.[email or web address] Spontaneous unlabored Yes 02/03/25 07:57 BUTADIENE CONVERTER OPERATOR.SOBR respirations Mental status Awake 02/03/25 07:57 BUTADIENE CONVERTER OPERATOR.SOBR nausea No 02/03/25 07:57 BUTADIENE CONVERTER OPERATOR.SOBR Vomiting No 02/03/25 07:57 BUTADIENE CONVERTER OPERATOR.SOBR Anesthesia Postop Eval I: Fluid Summary Crystalloid volume administer 500 02/03/25 07:57 BUTADIENE CONVERTER OPERATOR.SOBR (ml) Colloids volume administered ( ml) Blood Product volume administered (ml) Total IV fluid infused 500 02/03/25 07:57 BUTADIENE CONVERTER OPERATOR.SOBR Anesthesia Postop Eval I: Summary Notes Anesthesia Complication No 02/03/25 07:57 BUTADIENE CONVERTER OPERATOR.SOBR Anesthesia Complication Comment: Post-operative progress note Anesthesia: Postop Eval II Evaluation Mental status: Awake Pain Level: 0 nausea: No Vomiting: No
--- NOTE | 2025-02-03 08:23 | PCM.POSTANE2 ---
Anesthesia Postop Eval I Sum Postop Eval Completion status Anesthesia document: Postop Eval 1 completed: Yes Anesthesia Postop Eval I Summary Anesthesia Postop Eval I Summary: Anesthesia Postop Eval I: Assessment Summary Airway patent Yes 02/03/25 07:57 GASOLINE LOCOMOTIVE CRANE OPERATOR.[email or web address] Spontaneous unlabored Yes 02/03/25 07:57 GASOLINE LOCOMOTIVE CRANE OPERATOR.SOBR respirations Mental status Awake 02/03/25 07:57 GASOLINE LOCOMOTIVE CRANE OPERATOR.SOBR nausea No 02/03/25 07:57 GASOLINE LOCOMOTIVE CRANE OPERATOR.SOBR Vomiting No 02/03/25 07:57 GASOLINE LOCOMOTIVE CRANE OPERATOR.SOBR Anesthesia Postop Eval I: Fluid Summary Crystalloid volume administer 500 02/03/25 07:57 GASOLINE LOCOMOTIVE CRANE OPERATOR.SOBR (ml) Colloids volume administered ( ml) Blood Product volume administered (ml) Total IV fluid infused 500 02/03/25 07:57 GASOLINE LOCOMOTIVE CRANE OPERATOR.SOBR Anesthesia Postop Eval I: Summary Notes Anesthesia Complication No 02/03/25 07:57 GASOLINE LOCOMOTIVE CRANE OPERATOR.SOBR Anesthesia Complication Comment: Post-operative progress note Anesthesia: Postop Eval II Evaluation Mental status: Awake Pain Level: 0 nausea: No Vomiting: No
== END 2025-02-03 08:35 | disposition home or self-care (01) ==
LOC: EN 06:34 → AC 06:35
PROVIDERS: Referring Provider Surgery; Visit Provider Surgery
PROC: 0DJD8ZZ Inspection of Lower Intestinal Tract, Via Natural or Artificial Opening Endoscopic (ICD-10-PCS; CPT 45378; principal; 2025-02-03 07:25)
DX: Z12.11 Encounter for screening for malignant neoplasm of colon (principal); I42.2 Other hypertrophic cardiomyopathy; K64.8 Other hemorrhoids; Z87.891 Personal history of nicotine dependence; Z80.0 Family history of malignant neoplasm of digestive organs
CPT/HCPCS: 45378

== ENCOUNTER → 2025-03-01 | Outpatient (CLI) | payer OTHER, SELFPAY ==
--- OUTSIDE RECORDS SUMMARY | 2025-03-01 07:27 | XMS RPT_ITS | CCD ---
Author Organization [facility] Providers Care Marine Equipment Sales Engineer Name Role Phone DIAZ, THAN Unavailable Unavailable ORIN, HEIDI Unavailable Unavailable DIAZ, THAN Unavailable Unavailable ORIN, HIEDI Unavailable Unavailable ORIN, HEIDI Unavailable Unavailable Josee, Syeda L Unavailable Unavailable Unavailable Josee HEAD OF BIOLOGY-BACK ROLLER, Syeda L Primary Care Provider [place] HEAD OF BIOLOGY-BACK ROLLER, Syeda L Unavailable JOSEE, SYEDA L Primary Care Unavailable JOSEE, SYEDA L Primary Care Unavailable JOSEE, SYEDA L Attending Unavailable JOSEE, SYEDA L Primary Care Unavailable JOSEE, SYEDA L Primary Care Unavailable JOSEE, SYEDA L Referring Unavailable JOSEE, SYEDA L Attending Unavailable JOESE, SYEDA L Primary Care Unavailable JOSEE, SYEDA L Referring Unavailable Aby STERLING, Dr. Cabrera Attending Provider Dr. Deborah Badillo MD Referring Provider Dr. Jack Arredondo MD Attending Provider Dr. Jack Arredondo MD Referring Provider Care Physician, No Primary Primary Care Provider Unavailable Dr. Jack Arredondo MD Other Provider [phone] Carmen Rod Attending Provider Care Physician, No Primary Referring Provider Un available Deborah Badillo Referring Unavailable Care Physician, No Primary Primary Care Unava ilable Deborah Badillo Attending Unavailable Care Physician, No Primary Primary Care Unava ilable Colette DUMONT, Carmen Attending Unavailable Carmen Alvarenga NP Referring Unavailable Jack Arredondo Attending Unavailable Jack Arredondo Consulting Unavailable Jack Arredondo Attending Unavailable Jack Arredondo Referring Unavailable Care Physician, No Primary Primary Care Unava ilable Care Physician, No Primary Primary Care Unava ilable Care Physician, No Primary Referring Unava ilable Carmen Alvarenga NP Attending Unavailable Deborah Badillo Attending Unavailable Jack Arredondo Attending Unavailable Jack Arredondo Referring Unavailable Care Physician, No Primary Primary Care Unava ilDeborah Kinney Attending Unavailable Deborah Badillo Referring Unavailable Deborah Badillo Referring Unavailable Deborah Badillo Attending Unavailable Allergies Allergy Classification Reported Allergen(s) Allergy Type Date of Onset Reaction(s) Facility (2 sources) ALLERGIES NOT ON FILE; Translations: [ALLERGIES NOT ON FILE] Propensity to adverse reactions (disorder) [facility] Medications Current Medications Medication Drug Class(es) Dates Sig (Normalized) Sig (Original) fexofenadine hydrochloride 180 mg oral tablet (1 source) Histamine-1 Receptor Antagonist Start: 05-21-2023 End: 05-20-2024 take 1 tablet by mouth once daily fexofenadine (Noreen) 180 mg tablet Indications: Urticaria Take 1 tablet (180 mg) by mouth once daily. 30 tablet 5 05/21/2023 05/20/2024 Active Multivitamin (Daily Multi-Vitamin) tablet (2 sources) Start: 02-01-2025 Multivitamin (Daily Multi-Vitamin) tablet Active 1 {tbl} PO DAILY February 01, 2025 12:00am [place]-3 Fatty Acids 1,000 mg capsule (5 sources) Start: 01-04-2025 take 1 capsule by mouth once daily [place]-3 Fatty Acids 1,000 mg capsule Active 1000 mg PO daily January 04, 2025 12:00am saccharomyces boulardii 250 mg oral capsule (5 sources) Start: 01-11-2025 take 1 capsule by mouth once daily Saccharomyces Boulardii (Daily Probiotic (S. Boulardii)) 250 mg capsule Active 250 mg PO daily January 11, 2025 12:00am Turmeric extract (5 sources) Start: 01-04-2025 take 1 capsule by mouth once daily Turmeric 400 mg capsule Active 400 mg PO DAILY January 04, 2025 12:00am Start: 01-04-2025 Turmeric 400 m g capsule Active mg PO January 04, 2025 12:00am Vitamin D3-Vitamin K2 (5 sources) Start: 01-04-2025 Vitamin D3-Vit diaz K2 1,250-200 mcg capsule Active 1 NMA PO DAILY January 04, 2025 12:00am Start: 01-04-2025 Vitamin D3-Vit diaz K2 1,250-200 mcg capsule Active NMA PO [...] daily Quantity: 30 Refills: 2 Ordered: 27-Mar-2022 Syeda Campbell Start : 27-Mar-2022 Active Multi-Vitamins TABS (8 sources) Multi-Vitamins TABS Quantity: 0 Refills: 0 Ordered: 31-Dec-2021 DO Active phentermine hydrochloride 37.5 mg oral capsule (4 sources) Sympathomimetic Amine Anorectic Start: 01-28-2022 take 1 capsule by mouth once daily before breakfast Phentermine HCl - 37.5 MG Oral Capsule TAKE 1 CAPSULE EVERY MORNING BEFORE BREAKFAST. Quantity: 30 Refills: 0 Ordered: 21-Apr-2022 Syeda Campbell Start : 28-Jan-2022 Active Problems Active Problems Problem Classification Problem Date Documented Da te Episodic/Chronic Administrative/social admission (14 sources) Patient encounter status; Translations: [Other specified [...] finger injury] Episodic Other lower respiratory disease (6 sources) Snoring; Translations: [Snoring] 05-21-2023 Episodic Other [...] conditions (not mental disorders or infectious disease) (4 sources) Encounter for screening mammogram for malignant neoplasm of breast; Translations: [Encounter for screening for malignant neoplasm of colon] Onset: 01-09-2025 Episodic Other upper respiratory infections (8 sources) Acute upper respiratory infection; Translations: [Acute upper respiratory infections of unspecified site] Episodic Levira-; endo-; and myocarditis; cardiomyopathy (except that caused by tuberculosis or sexually transmitted disease) (12 sources) Hypertrophic cardiomyopathy; Translations: [Other hypertrophic cardiomyopathy] Onset: 11-10-2022 11-10-2022 Chronic Residual codes; unclassified (1 source) Obstructive sleep apnea syndrome; Translations: [Obstructive sleep apnea (adult) (pediatric)] 02-08-2025 Chronic Residual codes; unclassified (2 sources) Daytime hypersomnia; Translations: [Hypersomnia, unspecified] 02-08-2025 Chronic Residual codes; unclassified (1 source) Hypersomnia, unspecified; Translations: [Hypersomnia, unspecified] Onset: 02-27-2025 Chronic Residual codes; unclassified (8 sources) Intolerant of ambient temperature; Translations: [Other general symptoms] Episodic Residual codes; unclassified (16 sources) Family history of cancer of colon; Translations: [Family history of malignant neoplasm of digestive organs] 01-09-2025 Episodic Residual codes; unclassified (1 source) Family history of malignant neoplasm of digestive organs; Translations: [Family history of malignant neoplasm of digestive organs] Onset: 02-18-2025 Episodic Substance-related disorders (1 source) Nicotine dependence; Translations: [Nicotine dependence, cigarettes, uncomplicated] Onset: 06-22-2018 05-20-2023 Chronic Unclassified (10 sources) Encounter for screening for malignant neoplasm of colon; Translations: [Z12.11 - Encounter for screening for malignant neoplasm of colon] Unclassified (5 sources) R06.83 - Snoring Past or Other Problems Problem Classification Problem Date Documented Da te Episodic/Chronic Malaise and fatigue (2 sources) Other fatigue; Translations: [Other fatigue] Onset: 11-21-2022 Episodic Other nutritional; endocrine; and metabolic disorders (9 sources) Weight gain; Translations: [Abnormal weight gain] Onset: 11-10-2022 11-10-2022 Episodic Results Test Name Value Interpretation Reference Range Facility Pulmonary Visit Reporton Pulmonary Visit Report [facility] Pulmonary Medicine [address] [place] [address] OFFICE VISIT Date of Service: 02/08/25 MR#: [id number] Acct: [id number] Name: IRVINMAYO LANDEROS Rep #: [id number] : 1980 Provider: MARYSE Alvarenga Age/Sex: 44/F Location: [facility].PMW Status: Signed Assessment and Plan Assessment and Plan (1) Daytime hypersomnia: Status: Acute Plan: Positive STOP-BANG and ESS score of 17. The patient is suspicious for obstructive sleep apnea. She is agreeable to an attended polysomnogram, she has a significant cardiac family history and the patient is positive for gene contributing to hypertrophic cardiomyopathy. We discussed the pathophysiology of obstructive sleep apnea and the risks of untreated sleep apnea. We will further discuss sleep apnea and its benefits of treatment if the patient's polysomnogram indicates the presence of sleep apnea. Return to the office in approximately 4 to 6 weeks to discuss test results. The patient has some sleep habits that are not desirable. She admits to only getting 5 hours of sleep nightly. Her sleep is also interrupted by her dogs jumping into and out of bed. I briefly discussed with the patient that if we discover she does not have sleep apnea we will need to thoroughly evaluate good sleep hygiene and determine if there are any practices she can adopt that will provide her with better quality and quantity of sleep. She conveys understanding and is agreeable. (2) Nicotine abuse: Status: Acute Plan: She is currently only a social smoker. Smoking a few cigarettes weekly. Up until 2021, she was smoking approximately 1/2 pack/day. She did smoke regularly for 15 years. However, she is not appropriate for LDCT. This does complicate her exam, plan, care and prognosis. Encourage complete smoking cessation. Orders: Orders Polysomnography Today G47.10 - Hypersomnia, unspecified Plan Details Additional Comments: This note was generated with Tiggly dictation software. It may contain incorrect words, spelling, and punctuation that were not noted in checking the note before signing. Follow Up: 4 Weeks HPI HPI Comments Details: This patient presents to the office today for initial consultation regarding concern for obstructive sleep apnea. She is ambulatory and currently on room air. The patient reports that she is not feeling rested. She typically gets 5 hours of interrupted sleep nightly. She states that she goes to bed when her gets home from work around midnight. She has 2 dogs that sleep with her. She states that they wake her up when they jump out of bed and jump again. She gets up at 4 AM for work. She does not feel rested, she does nap daily for about 45 minutes. She has found herself nodding off to sleep unintentionally. She has awakened herself by gasping for air. She does snore. She denies any difficulty with nocturia or dry mouth. 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 She is a current smoker. She is currently only smoking a few cigarettes per week. Mostly social. Up into about 2 to 3 years ago she was smoking 1/2 pack/day. She smoked routinely for about 15 years. She has never seen a run boat operator and has never been prescribed an inhaler. Past medical family history significant for: Mother at the age of 57 due to appendiceal cancer, prior to that had her gallbladder removed and a hysterectomy in her early 40s due to heavy bleeding. The patient's father at the age of 59 due to hypertrophic cardiomyopathy. She is 1 of 6 children. Her brother at the age of 26 due to hypertrophic cardiomyopathy. 5 of the 6 children were positive for the gene or, in the case of her brother, positive for hypertrophic cardiomyopathy. 2 of her siblings have implanted defibrillators. The patient has 3 children. 2 of them also are gene positive for hypertrophic cardiomyopathy. She denies any difficulty with shortness of breath. She denies any cough, sputum function or hemoptysis. She denies any wheezing, chest tightness, chest pain or palpitations. She has not had any fever, chills or body aches. STOP-BANG Assessment: 1. Do you snore? Y 2. Are you frequently tired during the day? Y 3. Have you been observed gasping or choking while asleep? Y 4. Do you have high blood pressure? N 5. BMI - greater than 35kg/m2? N 6. Age - over 50 years old? N 7. Neck Circumference - greater than 37 cm for females or 40 cm for males? N 8. Gender - male? N Total STOP-BANG score = 3 which indicates HIGH risk for obstructive sleep apnea (yes to 3 or more questions = high risk of sleep apnea). Intake Vital Signs 01/11/25 08:42 02/08/25 07:47 Height 5 ft 1 in 5 ft 1 in Weight: 148 lb (more content not included)... Normal [facility] Colonoscopy Reporton 025 Colonoscopy Report [facility] Medical Records Department [address] [place] [address] Colonoscopy Report MR#: [id number] Acct: [id number] Name: MAYO HORTA Rep #: [id number] : 1980 44 From: Jack Arredondo MD PCP: Care Physician,No Primary Status:[facility] Patient Name: Mayo Horta Procedure Date: 02/03/2025 7:14 AM Date of : 1980 Age: 44 Procedure: Colonoscopy Indications: Screening in patient at increased risk: Family history of 1st-degree relative with colorectal cancer before age 60 years Providers: Jack Arredondo MD Referring MD: Jack Arredondo MD Medicines: Monitored Anesthesia Care Patient Profile: Refer to note in patient chart for documentation of history and physical. Last Colonoscopy: none. The patient's first colonoscopy is today. Complications: No immediate complications. Estimated blood loss: None. Procedure: Pre-Anesthesia Assessment: - Prior to the procedure, a History and Physical was performed, and patient medications and allergies were reviewed. The patient's tolerance of previous anesthesia was also reviewed. The risks and benefits of the procedure and the sedation options and risks were discussed with the patient. All questions were answered, and informed consent was obtained. Prior Anticoagulants: The patient has taken no anticoagulant or antiplatelet agents. ASA Grade Assessment: I - A normal, healthy patient. After reviewing the risks and benefits, the patient was deemed in satisfactory condition to undergo the procedure. After I obtained informed consent, the scope was passed under direct vision. Throughout the procedure, the patient's blood pressure, pulse, and oxygen saturations were monitored continuously. The colonoscope was introduced through the anus and advanced to the cecum, identified by appendiceal orifice and ileocecal valve. The ileocecal valve, appendiceal orifice, and rectum were photographed. The entire colon was well visualized. The colonoscopy was performed without difficulty. The patient tolerated the procedure well. The quality of the bowel preparation was good. Moderate Sedation: See the other procedure note for documentation of moderate sedation with intraservice time. Scope In: 7:32:24 AM Scope Withdrawal Time 0 hours 9 minutes 51 seconds Scope Out: 7:50:33 AM Total Procedure Duration Time 0 hours 18 minutes 9 seconds Findings: The perianal and digital rectal examinations were normal. Internal hemorrhoids were found during anoscopy. The hemorrhoids were mild. The exam was otherwise without abnormality on direct and retroflexion views. Impression: - Internal hemorrhoids. - The examination was otherwise normal on direct and retroflexion views. - No specimens collected. Recommendation: - Discharge patient to home (ambulatory). - High fiber diet. - Repeat colonoscopy in 5 years for screening purposes. - Return to my office PRN. - Continue present medications. Procedure Code(s): --- Professional --- 44211, Colonoscopy, flexible; diagnostic, including collection of specimen(s) by brushing or washing, when performed (separate procedure) Diagnosis Code(s): --- Professional --- K64.8, Other hemorrhoids Z80.0, Family history of malignant neoplasm of digestive organs CPT copyright 2021 [employer]. All rights reserved. The codes documented in this report are preliminary and upon supervisor mixing review may be revised to meet current compliance requirements. Jack Arredondo MD 02/03/2025 8:05:55 AM This report has been signed electronically. Number of Addenda: 0 Note Initiated On: 02/03/2025 7:14 AM 02/03/25805 Date Jack Arredondo MD Cosigner Signature: Date (if indicated) CC: Dr. Deborah Badillo MD; Dr. Jack Arredondo MD; No Primary Care Physician Date Dictated: 02/03/25713 Date Transcribed: Postage Machine Operator: GALINDO Polo [facility] MR/POSTOP.[facility] 02-03-2025 MR/POSTOP.[facility] Medical Records Department [address] [place] [address] Anesthesia Postop Eval I 02/03/25756 MR#: [id number] Acct: [id number] Name: MAYO HORTA Rep #: [id number] : 1980 44 From: Raoul [address] CRNA PCP: Care Physician,No Primary Status:REG [facility] Race: C Location: [place] [address] Anesthesia: Postop Eval I Current Vital Signs Temperature: 97.5 F Pulse Rate: 69 Blood Pressure: 110/75 Respiratory Rate: 16 Pulse Ox: 100 Oxygen Delivery Method: Room Air Assessment Airway patent: Yes Spontaneous unlabored respirations: Yes Mental status: Awake nausea: No Vomiting: No Anesthesia Complication: No Fluid Hydration Crystalloid volume administer (ml): 500 Total IV fluid infused: 500 Progress Note Anesthesia document: Postop Eval 1 completed: Yes 02/03/[address] AUTOMATIC SPINNING LATHE OPERATOR Cosigner Signature: Date CC: Signed Normal [facility] MR/[id number] 02-03-2025 MR/POSTOPAN2 [facility] Medical Records Department [address] [place] [address] Anesthesia Postop Eval II 02/03/25822 MR#: [id number] Acct: [id number] Name: MAYO HORTA Rep #: [id number] : 1980 44 From: Tobias Maurer MD PCP: Care Physician,No Primary Status:[facility] Race: C Location: [place] [address] Anesthesia Postop Eval I Sum Postop Eval Completion status Anesthesia document: Postop Eval 1 completed: Yes Anesthesia Postop Eval I Summary Anesthesia Postop Eval I Summary: Anesthesia Postop Eval I: Assessment Summary Airway patent Yes 02/03/25 07:57 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 Spontaneous unlabored Yes 02/03/25 07:57 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 respirations Mental status Awake 02/03/25 07:57 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 nausea No 02/03/25 07:57 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 Vomiting No 02/03/25 07:57 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 Anesthesia Postop Eval I: Fluid Summary Crystalloid volume administer 500 02/03/25 07:57 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 (ml) Colloids volume administered ( ml) Blood Product volume administered (ml) Total IV fluid infused 500 02/03/25 07:57 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 Anesthesia Postop Eval I: Summary Notes Anesthesia Complication No 02/03/25 07:57 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 Anesthesia Complication Comment: Post-operative progress note Anesthesia: Postop Eval II Evaluation Mental status: Awake Pain Level: 0 nausea: No Vomiting: No 02/03/25 0824 Date Tobias Chisholm Signature: Date CC: Signed Normal [facility] MR/PATShin 02-02-2025 MR/PAT.[facility] Medical Records Department [address] [place] [address] PAT - Anesthesia 02/02/25 1547 MR#: [id number] Acct: [id number] Name: MAYO HORTA Rep #: [id number] : 1980 44 From: Juan Luis Bullock MD PCP: Dr. 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 Hx Hospitalization No 02/01/25 14:11 Any Problems [...] take am of surgery PONV PONV - welding machine operator gas: PONV - welding machine operator gas Female Yes 02/01/25 14:11 HX of Motion [...] 01/11/25 08:42 Respiratory Assessment Respiratory Assessment - welding machine operator gas: Respiratory Tract Infection Hx - welding machine operator gas Hx Respiratory Tract Infection No 02/01/25 14:11 STOP Sleep Apnea STOP Sleep Apnea - welding machine operator gas: STOP Sleep Apnea - welding machine operator gas Hx Hypertension No 02/01/25 14:11 Hx Sleep [...] Tobacco Use History Tobacco Use History - welding machine operator gas: Tobacco Use History - welding machine operator gas Tobacco Use Smoking Status Former smoker 02/01/25 14:11 Hx Tobacco Use No 02/01/25 14:11 Years Smoking Packs Smoked per Day Smoking Cessation Date was Yes - quit smoking within 15 02/01/25 14:11 within the last 15 years years Hx Smoking Cessation Date Hx Smoking Cessation Counseling Hematologic Medial History Hematologic Hx - 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 Specify any problems Hx of Preganancy in last 3 No 02/01/25 14:11 Months Nurse Filling Out Transfusion VCHRISTIN 02/01/25 14:11 Questions: Date: 02/01/25 02/01/25 14:11 Time: 14:12 02/01/25 14:11 Patient unable to answer at this time (ie. confused, unrespo /Reproduction History /Reproductive History - welding machine operator gas: /Reproductive Hx- welding machine operator gas Hx Now No 02/01/25 14:11 Gestational Age (in weeks): EDC: Hx Hx Para Hx Section SAB No 02/01/25 14:11 PFSH Medical History (Updated 02/01/25 @ 14:11 by [...] 02/01/25 14:02 (more content not included)... Normal [facility] PAP I-G w/rfx hrHPV-Aptimaon 01-11-2025 ADEQ Comment Normal . [facility] Comment on above: Order Comment: Spec men Comment: [id number] Specimen Comment: No. of containers..01 ThinPrep Vial Result Comment: Sati sfactory for evaluation. No endocervical cells are present. This is consistent with a history of hysterectomy. Performed By: #### L 7400.0353 #### [facility] [address] [place], [address] COMM . Normal . [facility] Comment on above: [facility]: [facility]: [id number] Specimen Comment: No. of containers..01 ThinPrep Vial Performed By: #### L 7400.0353 #### [facility] [address] [place], [place], [id number] COMMENT Comment Normal . [facility] Comment on above: [facility]: [facility]: [id number] Specimen Comment: No. of containers..01 ThinPrep Vial Result Comment: This liquid based ThinPrep(R) pap test was screened with the use of an image guided system. Performed By: #### L 7400.0353 #### [facility] [address] [place], [place], [id number] DIAG Comment Normal . [facility] Comment on above: Order Comment: Speci men Comment: [id number] Specimen Comment: No. of containers..01 ThinPrep Vial Result Comment: NEGA TIVE FOR INTRAEPITHELIAL LESION OR MALIGNANCY. Performed By: #### L 7400.0353 #### [facility] [address] [place], [address] HPV RFLX Comment Normal . [facility] Comment on above: Order Comment: Speci men Comment: [id number] Specimen Comment: No. of containers..01 ThinPrep Vial Result Comment: The HPV DNA reflex criteria were not met with this specimen result therefore, no HPV testing was performed. Performed at: [address] [id number] Seed Analyst: Amy Ball MD, Phone: [phone] Performed By: #### L 7400.0353 #### [facility] [address] [place], [place], [id number] PAPSMR Comment Normal . [facility] Comment on above: Order Comment: Speci men Comment: [id number] Specimen Comment: No. of containers..01 ThinPrep Vial Result Comment: The Pap smear is a screening test designed to aid in the detection of premalignant and malignant conditions of the uterine cervix. It is not a diagnostic procedure and should not be used as the sole means of detecting cervical cancer. Both false-positive and false-negative reports do occur. Performed By: #### L 7400.0353 #### [facility] Laboratory [address] [place], [place], [id number] PERFORM Comment Normal . [facility] Comment on above: Order Comment: Speci men Comment: [id number] Specimen Comment: No. of containers..01 ThinPrep Vial Result Comment: Samara Pratt, Graphics Intern (ASCP) Performed By: #### L 7400.0353 #### [facility] Laboratory [address] [place], [address] Surgery Visit Reporton 01-11 Surgery Visit Report [facility] [address] [place] [address] OFFICE VISIT Date of Service: 01/11/25 MR#: [id number] Acct: [id number] Name: MAYO HORTA Rep #: [id number] : 1980 Provider: Dr. Jack gunter MD Age/Sex: 44/F Location: [facility] Status: Signed Intake Vital Signs 01/09/25 08:02 [...] pl anned (more content not included)... Normal [facility] Absolute lymphocyte countOrd ered By: Deborah Badillo on 01-10-2025 Lymphocytes Auto (Unsp spec) [#/Vol] 3.72 10*3/uL 0.83-4.51 [facility] Absolute neutrophil countOrd ered By: Deborah Badillo on 01-10-2025 Neutrophils (Bld) [#/Vol] 7.6 10*3/uL 2.0-7.7 [facility] Anion gap in Serum or Plasma Ordered By: Deborah Badillo on 01-10-2025 Anion gap [Moles/Vol] 12 mmol/L 5-[address] [facility] Automated lymphocyte count a s percentage of total leukocytesOrdered By: Deborah Badillo on 01-10-2025 Lymphocytes/100 WBC Auto (Unsp spec) 30.3 % -41 [facility] BUN/creatinine ratioOrdered By: Deborah Badillo on 01-10-2025 Urea nitrogen/Creatinine [Mass ratio] 10.2 mg/mg 10-20 [facility] Basophil percentageOrdered B y: Deborah Badillo on 01-10-2025 Basophils/100 WBC (Bld) 1.1 % High 0-1 [facility] Bilirubin, totalOrdered By: Deborah Badillo on 01-10-2025 Bilirubin [Mass/Vol] 0.45 mg/dL 0.00-1.30 [facility] CBC W/Diff, Automatedon 12-29 Absolute Lymph 3.72 X10 3/uL Normal 0.83-4.51 [facility] Comment on above: Performed By: #### L 500.4100, L506.1001, L501.9985, L501.9520, L100.0100, L500.4050 #### [facility] Laboratory [address] [place], [address] Absolute Neut 7.6 X10 3/uL Normal 2.0-7.7 [facility] Comment on above: Performed By: #### L 500.4100, L506.1001, L501.9985, L501.9520, L100.0100, L500.4050 #### [facility] Laboratory [address] [place], [address] Basophils/100 WBC (Bld) 1.1 % High 0-1 [facility] Comment on above: Performed By: #### L 500.4100, L506.1001, L501.9985, L501.9520, L100.0100, L500.4050 #### [facility] Laboratory [address] [place], [address] Eosinophils/100 WBC (Bld) 1.9 % Normal 0-5 [facility] Comment on above: Performed By: #### L 500.4100, L506.1001, L501.9985, L501.9520, L100.0100, L500.4050 #### [facility] Laboratory [address] [place], [address] Erythrocyte distribution width (RBC) [Ratio] 13.5 % Normal 11.6-14.6 [facility] Comment on above: Performed By: #### L 500.4100, L506.1001, L501.9985, L501.9520, L100.0100, L500.4050 #### [facility] Laboratory [address] [place], [address] Hematocrit (Bld) [Volume fraction] 44.1 % Normal 37-47 [facility] Comment on above: Performed By: #### L 500.4100, L506.1001, L501.9985, L501.9520, L100.0100, L500.4050 #### [facility] Laboratory [address] [place], [address] Hemoglobin (Bld) [Mass/Vol] 15.0 g/dL Normal 12.0-15.0 [facility] Comment on above: Performed By: #### L 500.4100, L506.1001, L501.9985, L501.9520, L100.0100, L500.4050 #### [facility] Laboratory [address] [place], [address] IG% 0.300 Normal 0.0-0.9 [facility] Comment on above: Result Comment: IG% - Immature Granulocytes (promyelocytes, myelocytes and metamyelocytes) > 1% indicates that a LEFT SHIFT is Present. Performed By: #### L 500.4100, L506.1001, L501.9985, L501.9520, L100.0100, L500.4050 #### [facility] [address] [place], [address] Lymphocytes/100 WBC (Bld) 30.3 % Normal 19-41 [facility] Comment on above: Performed By: #### L 500.4100, L506.1001, L501.9985, L501.9520, L100.0100, L500.4050 #### [facility] Laboratory [address] [place], [address] MCH (RBC) [Entitic mass] 31.8 pg Normal 27.0-32.0 [facility] Comment on above: Performed By: #### L 500.4100, L506.1001, L501.9985, L501.9520, L100.0100, L500.4050 #### [facility] Laboratory [address] [place], [address] MCHC (RBC) [Mass/Vol] 34.0 g/dL Normal 32-[address] [facility] Comment on above: Performed By: #### L 500.4100, L506.1001, L501.9985, L501.9520, L100.0100, L500.4050 #### [facility] Laboratory [address] [place], [address] MCV (RBC) [Entitic vol] 93.4 fL Normal 81-99 [facility] Comment on above: Performed By: #### L 500.4100, L506.1001, L501.9985, L501.9520, L100.0100, L500.4050 #### [facility] Laboratory [address] [place], [address] Monocytes/100 WBC (Bld) 5.0 % Normal 0-10 [facility] Comment on above: Performed By: #### L 500.4100, L506.1001, L501.9985, L501.9520, L100.0100, L500.4050 #### [facility] Laboratory [address] [place], [address] Neutrophils/100 WBC (Bld) 61.4 % Normal 47-70 [facility] Comment on above: Performed By: #### L 500.4100, L506.1001, L501.9985, L501.9520, L100.0100, L500.4050 #### [facility] Laboratory [address] [place], [address] Nucleated RBC (Bld) [#/Vol] 0 10*3/uL Normal 0-5 [facility] Comment on above: Performed By: #### L 500.4100, L506.1001, L501.9985, L501.9520, L100.0100, L500.4050 #### [facility] Laboratory [address] [place], [address] Platelet mean volume (Bld) [Entitic vol] 12.1 fL High 6.2-12.0 [facility] Comment on above: Performed By: #### L 500.4100, L506.1001, L501.9985, L501.9520, L100.0100, L500.4050 #### [facility] Laboratory [address] [place], [address] Platelets (Bld) [#/Vol] 176 10*3/uL Normal 150-450 [facility] Comment on above: Performed By: #### L 500.4100, L506.1001, L501.9985, L501.9520, L100.0100, L500.4050 #### [facility] Laboratory [address] [place], [address] RBC (Bld) [#/Vol] 4.72 10*6/uL Normal 4.2-5.4 [facility] Comment on above: Performed By: #### L 500.4100, L506.1001, L501.9985, L501.9520, L100.0100, L500.4050 #### [facility] Laboratory [address] [place], [address] RDW SD 46.4 fl High 35.1-43.9 [facility] Comment on above: Performed By: #### L 500.4100, L506.1001, L501.9985, L501.9520, L100.0100, L500.4050 #### [facility] Laboratory [address] [place], [address] WBC (Bld) [#/Vol] 12.3 10*3/uL High 4.4-11.0 [facility] Comment on above: Performed By: #### L 500.4100, L506.1001, L501.9985, L501.9520, L100.0100, L500.4050 #### [facility] Laboratory [address] [place], [address] Calculated very low density lipoprotein (VLDL) cholesterol measurementOrdered By: Deborah Badillo on 01-10-2025 Calculated very low density lipoprotein (VLDL) cholesterol measurement 14 mg/dL 5-40 [facility] Carbon dioxide, total [Moles /volume] in Central venous bloodOrdered By: Deborah Badillo on 01-10-2025 CO2 [Moles/Vol] 24.6 mmol/L 21.0-32.0 [facility] Chloride assayOrdered By: Crispin Badillo on 01-10-2025 Chloride [Moles/Vol] 102 mmol/L 98-108 [facility] Comprehensive Metabolic Prof ilon 01-10-2025 Albumin [Mass/Vol] 4.7 g/dL Normal 3.5-5.0 [facility] Comment on above: Performed By: #### L 500.4100, L506.1001, L501.9985, L501.9520, L100.0100, L500.4050 #### [facility] Laboratory [address] [place], [address] Albumin/Globulin [Mass ratio] 1.9 {ratio} Normal 0.9-2.4 [facility] Comment on above: Performed By: #### L 500.4100, L506.1001, L501.9985, L501.9520, L100.0100, L500.4050 #### [facility] Laboratory [address] [place], [address] ALK PHOS 49 U/L Normal 35-104 [facility] Comment on above: Performed By: #### L 500.4100, L506.1001, L501.9985, L501.9520, L100.0100, L500.4050 #### [facility] Laboratory [address] [place], [address] ALT [Catalytic activity/Vol] 14 U/L Normal <=34 [facility] Comment on above: Performed By: #### L 500.4100, L506.1001, L501.9985, L501.9520, L100.0100, L500.4050 #### [facility] Laboratory [address] [place], [address] AST [Catalytic activity/Vol] 18 U/L Normal <=31 [facility] Comment on above: Performed By: #### L 500.4100, L506.1001, L501.9985, L501.9520, L100.0100, L500.4050 #### [facility] Laboratory [address] [place], [address] Bilirubin [Mass/Vol] 0.45 mg/dL Normal 0.00-1.30 [facility] Comment on above: Performed By: #### L 500.4100, L506.1001, L501.9985, L501.9520, L100.0100, L500.4050 #### [facility] Laboratory [address] [place], [address] BUN/CRE 10.2 RATIO Normal 10-20 [facility] Comment on above: Performed By: #### L 500.4100, L506.1001, L501.9985, L501.9520, L100.0100, L500.4050 #### [facility] Laboratory [address] [place], [address] Calcium [Mass/Vol] 9.7 mg/dL Normal 7.6-11.0 [facility] Comment on above: Performed By: #### L 500.4100, L506.1001, L501.9985, L501.9520, L100.0100, L500.4050 #### [facility] Laboratory [address] [place], [address] Chloride [Moles/Vol] 102 mmol/L Normal 98-108 [facility] Comment on above: Performed By: #### L 500.4100, L506.1001, L501.9985, L501.9520, L100.0100, L500.4050 #### [facility] Laboratory [address] [place], [address] CO2 [Moles/Vol] 24.6 mmol/L Normal 21.0-32.0 [facility] Comment on above: Performed By: #### L 500.4100, L506.1001, L501.9985, L501.9520, L100.0100, L500.4050 #### [facility] Laboratory [address] [place], [address] Creatinine [Mass/Vol] 0.92 mg/dL Normal 0.70-1.[address] [facility] Comment on above: Performed By: #### L 500.4100, L506.1001, L501.9985, L501.9520, L100.0100, L500.4050 #### [facility] Laboratory [address] [place], [address] GAP 12 Normal 5-15 [facility] Comment on above: Performed By: #### L 500.4100, L506.1001, L501.9985, L501.9520, L100.0100, L500.4050 #### [facility] Laboratory [address] [place], [address] GFR/1.73 sq M.predicted among non-blacks MDRD (S/P/Bld) [Vol rate/Area] 78 mL/min/{1.73_m2} Normal >60 [facility] Comment on above: Result Comment: mL/m in/1.73m2 CKD-EPI Creatinine Equation (2020) Performed By: #### L 500.4100, L506.1001, L501.9985, L501.9520, L100.0100, L500.4050 #### [facility] Laboratory [address] [place], [address] Globulin (S) [Mass/Vol] 2.5 g/dL Normal 2.2-4.2 [facility] Comment on above: Performed By: #### L 500.4100, L506.1001, L501.9985, L501.9520, L100.0100, L500.4050 #### [facility] Laboratory [address] [place], [address] Glucose [Mass/Vol] 95 mg/dL Normal 70-99 [facility] Comment on above: Performed By: #### L 500.4100, L506.1001, L501.9985, L501.9520, L100.0100, L500.4050 #### [facility] Laboratory [address] [place], [address] Potassium [Moles/Vol] 4.3 mmol/L Normal 3.3-5.[address] [facility] Comment on above: Performed By: #### L 500.4100, L506.1001, L501.9985, L501.9520, L100.0100, L500.4050 #### [facility] Laboratory [address] [place], [address] Sodium [Moles/Vol] 139 mmol/L Normal 133-145 [facility] Comment on above: Performed By: #### L 500.4100, L506.1001, L501.9985, L501.9520, L100.0100, L500.4050 #### [facility] Laboratory [address] [place], [address] T PROT 7.2 g/dL Normal 5.9-8.4 [facility] Comment on above: Performed By: #### L 500.4100, L506.1001, L501.9985, L501.9520, L100.0100, L500.4050 #### [facility] Laboratory [address] [place], [address] Urea nitrogen [Mass/Vol] 9 mg/dL Normal 4-19 [facility] Comment on above: Performed By: #### L 500.4100, L506.1001, L501.9985, L501.9520, L100.0100, L500.4050 #### [facility] Laboratory [address] [place], [address] Eosinophil percentageOrdered By: Deborah Badillo on 01-10-2025 Eosinophils/100 WBC (Bld) 1.9 % 0-5 [facility] Erythrocyte distribution wid th ratioOrdered By: Deborah Badillo on 01-10-2025 Erythrocyte distribution width (RBC) [Ratio] 13.5 % 11.6-14.6 [facility] Erythrocyte distribution wid th standard deviationOrdered By: Deborah Badillo on 01-10-2025 Erythrocyte distribution width (RBC) [Ratio] 46.4 fl High 35.1-43.9 [facility] Glomerular filtration rate ( GFR) estimation/1.73 sq m using serum, plasma, or whole bOrdered By: Deborah Badillo on 01-10-2025 GFR/1.73 sq M.predicted among non-blacks MDRD (S/P/Bld) [Vol rate/Area] 78 mL/min/{1.73_m2} >60 [facility] Comment on above: mL/min/1.73m2 CKD-EP I Creatinine Equation (2020) Hematocrit Auto (Bld) [Volum e fraction]Ordered By: Deborah Badillo on 01-10-2025 Hematocrit (Bld) [Volume fraction] 44.1 % 37-47 [facility] Hemoglobin A1con 01-10-2025 HbA1c (Bld) [Mass fraction] 5.4 % Normal <=5.6 [facility] Comment on above: Result Comment: Norm al < 5.7 % Prediabetic 5.7 - 6.4 % Diabetic >or= 6.5 % Please note range changes. Performed By: #### L 500.4100, L506.1001, L501.9985, L501.9520, L100.0100, L500.4050 #### [facility] Laboratory [address] [place], [address] Hemoglobin A1c percentageOrd ered By: Deborah Badillo on 01-10-2025 HbA1c (Bld) [Mass fraction] 5.4 % <5.7 [facility] Comment on above: Normal < 5.7 % Predi abetic 5.7 - 6.4 % Diabetic >or= 6.5 % Please note range changes. Hemoglobin measurementOrdere d By: Deborah Badillo on 01-10-2025 Hemoglobin (Bld) [Mass/Vol] 15.0 g/dL 12.0-15.0 [facility] Immature granulocytes/100 WB C Auto (Bld)Ordered By: Deborah Badillo on 01-10-2025 Immature granulocytes/100 WBC (Bld) 0.300 % 0.0-0.9 [facility] Comment on above: IG% - Immature Granu locytes (promyelocytes, myelocytes and metamyelocytes) > 1% indicates that a LEFT SHIFT is Present. LDL calc ser/plasOrdered By: Deborah Badillo on 01-10-2025 Cholesterol in LDL [Mass/Vol] 116 mg/dL [facility] Comment on above: Pgymwuwaxe=182-173 m g/dL & Higher Chlw=005 mg/dL or greater Laboratory - Chemistry and C hemistry - challengeOrdered By: Deborah Badillo on 01-10-2025 AST [Catalytic activity/Vol] 18 U/L <32 [facility] Lipid Profileon 01-10-2025 CHOL:HDL 3.76 Normal [facility] Comment on above: Performed By: #### L 500.4100, L506.1001, L501.9985, L501.9520, L100.0100, L500.4050 #### [facility] Laboratory [address] [place], [address] Cholesterol [Mass/Vol] 177 mg/dL Normal <=200 [facility] Comment on above: Result Comment: Chol esterol level, Desirable <200 mg/dL Borderline high cholesterol 200-239 mg/dL High cholesterol >=240 mg/dL Recommendations of the NCEP Adult Treatment Panel for the following risk-cutoff thresholds for the [place] population. Performed By: #### L 500.4100, L506.1001, L501.9985, L501.9520, L100.0100, L500.4050 #### [facility] Laboratory [address] [place], [address] Cholesterol in HDL [Mass/Vol] 47 mg/dL Normal [facility] Comment on above: Result Comment: Sugar onal Cholesterol Education Program (NCEP) guidelines: <40 mg/dL: Low HDL-cholesterol (major risk factor for CHD) >= 60 mg/dL: High HDL-cholesterol (negative risk factor for CHD) HDL-cholesterol is affected by a number of factors, e.g. smoking, exercise, hormones, sex and age. Performed By: #### L 500.4100, L506.1001, L501.9985, L501.9520, L100.0100, L500.4050 #### [facility] Laboratory [address] [place], [address] Cholesterol in LDL [Mass/Vol] 116 mg/dL Normal [facility] Comment on above: Result Comment: Bord gxtnqh=023-742 mg/dL Higher Oolk=624 mg/dL or greater Performed By: #### L 500.4100, L506.1001, L501.9985, L501.9520, L100.0100, L500.4050 #### [facility] Laboratory [address] [place], [address] Cholesterol in VLDL [Mass/Vol] 14 mg/dL Normal 5-40 [facility] Comment on above: Performed By: #### L 500.4100, L506.1001, L501.9985, L501.9520, L100.0100, L500.4050 #### [facility] Laboratory [address] [place], [address] Triglyceride [Mass/Vol] 68 mg/dL Normal [facility] Comment on above: Result Comment: The drugs N-Acetylcysteine and Metamizole may falsely depress this assay. Normal range: <150 mg/dL Borderline High: 150-199 mg/dL High: 200-499 mg/dL Very High: >500 mg/dL Performed By: #### L 500.4100, L506.1001, L501.9985, L501.9520, L100.0100, L500.4050 #### [facility] Laboratory [address] [place], [address] MCV (mean corpuscular volume ) determinationOrdered By: Deborah Badillo on 01-10-2025 MCV (RBC) [Entitic vol] 93.4 fL 81-99 [facility] Mean corpuscular hemoglobin (MCH) determinationOrdered By: Deborah Badillo on 01-10-2025 MCH (RBC) [Entitic mass] 31.8 pg 27.0-32.0 [facility] Mean corpuscular hemoglobin concentration (MCHC) determinationOrdered By: Deborah Badillo on 01-10-2025 MCHC (RBC) [Mass/Vol] 34.0 g/dL 32-[address] [facility] Mean platelet volume determi nationOrdered By: Deborah Badillo on 01-10-2025 Platelet mean volume (Bld) [Entitic vol] 12.1 fL High 6.2-12.0 [facility] Monocyte percentageOrdered B y: Deborah Badillo on 01-10-2025 Monocytes/100 WBC (Bld) 5.0 % 0-10 [facility] Neutrophil percentageOrdered By: Deborah Badillo on 01-10-2025 Neutrophils/100 WBC (Bld) 61.4 % 47-70 [facility] Nucleated red blood cell per centageOrdered By: Deborah Badillo on 01-10-2025 Nucleated RBC/100 WBC (Bld) [Ratio] 0 % 0-5 [facility] Platelet countOrdered By: Crispin Badillo on 01-10-2025 Platelets (Bld) [#/Vol] 176 10*3/uL 150-450 [facility] Potassium measurement (mass/ volume)Ordered By: Deborah Badillo on 01-10-2025 Potassium (Unsp spec) [Mass/Vol] 4.3 mmol/L 3.3-5.1 [facility] RBC Auto (Bld) [#/Vol]Ordere d By: Deborah Badillo on 01-10-2025 RBC (Bld) [#/Vol] 4.72 10*6/uL 4.2-5.4 [facility] Screening total cholesterol/ high density lipoprotein (HDL) cholesterol ratioOrdered By: Deborah Badillo on 01-10-2025 Cholesterol.total/Chol esterol in HDL [Mass ratio] 3.76 {ratio} [facility] Serum creatinine measurement (mass/volume)Ordered By: Deborah Badillo on 01-10-2025 Creatinine [Mass/Vol] 0.92 mg/dL 0.70-1.[address] [facility] Serum globulin measurementOr dered By: Deborah Badillo on 01-10-2025 Globulin (S) [Mass/Vol] 2.5 g/dL 2.2-4.2 [facility] Serum glucose measurement (m ass/volume)Ordered By: Deborah Badillo on 01-10-2025 Glucose [Mass/Vol] 95 mg/dL 70-99 [facility] Serum or plasma alanine diaz otransferase (ALT) measurementOrdered By: Deborah Badillo on 01-10-2025 ALT [Catalytic activity/Vol] 14 U/L <35 [facility] Serum or plasma albumin chris urement (mass/volume)Ordered By: Deborah Badillo on 01-10-2025 Albumin [Mass/Vol] 4.7 g/dL 3.5-5.0 [facility] Serum or plasma albumin/glob ulin mass ratioOrdered By: Deborah Badillo on 01-10-2025 Albumin/Globulin [Mass ratio] 1.9 {ratio} 0.9-2.4 [facility] Serum or plasma alkaline reyna sphatase measurementOrdered By: Deborah Badillo on 01-10-2025 ALP [Catalytic activity/Vol] 49 U/L 35-104 [facility] Serum or plasma calcium chris urement (mass/volume)Ordered By: Deborah Badillo on 01-10-2025 Calcium [Mass/Vol] 9.7 mg/dL 7.6-11.0 [facility] Serum or plasma cholesterol in HDL measurement (mass/volume)Ordered By: Deborah Badillo on 01-10-2025 Cholesterol in HDL [Mass/Vol] 47 mg/dL >40 [facility] Comment on above: National Cholesterol Education Program (NCEP) guidelines:<40 mg/dL: Low HDL-cholesterol (major risk factor for CHD)>= 60 mg/dL: High HDL-cholesterol (negative risk factor for CHD)HDL-cholesterol is affected by a number of factors, e.g. smoking, exercise, hormones, sex and age. Serum or plasma cholesterol measurement (mass/volume)Ordered By: Deborah Badillo on 01-10-2025 Cholesterol [Mass/Vol] 177 mg/dL <201 [facility] Comment on above: Cholesterol level, D esirable <200 mg/dLBorderline high cholesterol 200-239 mg/dLHigh cholesterol >=240 mg/dLRecommendations of the NCEP Adult Treatment Panel for the following risk-cutoff thresholds for the [place] population. Serum or plasma urea nitroge n measurement (mass/volume)Ordered By: Deborah Badillo on 01-10-2025 Urea nitrogen [Mass/Vol] 9 mg/dL 4-19 [facility] Sodium levelOrdered By: Catrachito Badillo on 01-10-2025 Sodium [Moles/Vol] 139 mmol/L 133-145 [facility] TSH DL <= 0.005 mIU/L QnOrde red By: Deborah Badillo on 01-10-2025 TSH Qn 0.650 uIU/mL 0.300-4.200 [facility] Thyroid Stim Hormone (TSH)on 01-10-2025 TSH 0.650 uIU/mL Normal 0.300-4.200 [facility] Comment on above: Performed By: #### L 500.4100, L506.1001, L501.9985, L501.9520, L100.0100, L500.4050 #### [facility] Laboratory [address] [place], [place], [id number] Total proteinOrdered By: Jaxson Badillo on 01-10-2025 Protein [Mass/Vol] 7.2 g/dL 5.9-8.4 [facility] Triglycerides measurementOrd ered By: Deborah Badillo on 01-10-2025 Triglyceride [Mass/Vol] 68 mg/dL <199 [facility] Comment on above: The drugs N-Acetylcy steine and Metamizole may falsely depress this assay. Normal range: <150 mg/dLBorderline High: 150-199 mg/dLHigh: 200-499 mg/dLVery High: >500 mg/dL Vitamin D,25 Hydroxyon 01-10 Vitamin D 25-OH 75.6 ng/mL Normal 30-100 [facility] Comment on above: Result Comment: Kamla min D Status Deficiency: <20 ng/mL (50nmol/L) Insufficiency: 20-30 ng/mL (50-75 nmol/L) Sufficiency: 30-100 ng/mL (75-250 nmol/L) Toxicity: >100 ng/mL (>250 nmol/L) Performed By: #### L 500.4100, L506.1001, L501.9985, L501.9520, L100.0100, L500.4050 #### [facility] Laboratory [address] [place], [address] White blood cell (WBC) count Ordered By: Deborah Badillo on 01-10-2025 WBC (Bld) [#/Vol] 12.3 10*3/uL High 4.4-11.0 [facility] Cervical or vagninal specime n microscopic examination by cytology stain (reported asOrdered By: Deborah Badillo on 01-09-2025 Cytology report Cyto stain Doc (Cvx/Vag) Comment . [facility] Comment on above: The Pap smear is a s creening test designed to aid in thedetection of premalignant and malignant conditions of theuterine cervix. It is not a diagnostic procedure andshould not be used as the sole means of detecting cervicalcancer. Both false-positive and false-negative reports dooccur. Laboratory - CytologyOrdered By: Deborah Badillo on 01-09-2025 Graphics Intern Cyto stain Nom (Cvx/Vag) [ID] Comment . [facility] Comment on above: Samara Pratt, Cytolog ist (ASCP) Laboratory - Miscellaneous t estsOrdered By: Deborah Badillo on 01-09-2025 Service comment (Unsp spec) [Interp] . . [facility] No Panel InformationOrdered By: Deborah Badillo on 01-09-2025 Pap Smear Specimen Adequacy Comment . [facility] Comment on above: Satisfactory for dahlia luation. No endocervical cells are present. This isconsistent with a history of hysterectomy. 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 Normal [facility] VITAMIN D 1,25-DIHYDROXYon 0 05-22-2023 VITAMIN D 1,25-DIHYDROXY 51.1 pg/mL Normal 19.9-79.3 [facility] Comment on above: Result Comment: INTE RPRETIVE INFORMATION: Vitamin D, 1,25-Dihydroxy This test is primarily indicated during patient evaluation for hypercalcemia and renal failure. A normal result does not rule out Vitamin D deficiency. The recommended test for diagnosing Vitamin D deficiency is Vitamin D 25-hydroxy. Performed By: [facility] [address] [place] [address] Corrective Therapy Aide: Juan Talamantes MD, PhD CLIA Number: [id number] Performed By: #### V TDDI #### [facility] [address] [place] [address] CORTISOL,UNSPECIFIEDon 05-21 CORTISOL,UNSPECIFIED 5.3 ug/dL Normal 2.5 - 20.0 [facility] Comment on above: Performed By: #### C ORUN #### [facility] [address] [place] [address] CBC AND DIFFERENTIALon 05-20 % AUTOMATED IMMATURE GRAN 0.2 % Normal 0.0 - 0.9 [facility] Comment on above: Result Comment: Brianda ture Granulocyte Count (IG) includes promyelocytes, myelocytes and metamyelocytes but does not include bands. Percent differential counts (%) should be interpreted in the context of the absolute cell counts (cells/L). Performed By: #### C BCDF #### [facility] [address] [address] Basophils (Bld) [#/Vol] 0.11 10*3/uL High 0.00 - 0.10 [facility] Comment on above: Performed By: #### C BCDF #### [address] [address] Basophils/100 WBC (Bld) 1.3 % Normal 0.0 - 2.0 [facility] Comment on above: Performed By: #### C BCDF #### [address] [address] Eosinophils (Bld) [#/Vol] 0.14 10*3/uL Normal 0.00 - 0.70 [facility] Comment on above: Performed By: #### C BCDF #### [address] [address] Eosinophils/100 WBC (Bld) 1.7 % Normal 0.0 - 6.0 [facility] Comment on above: Performed By: #### C BCDF #### [address] [address] Erythrocyte distribution width (RBC) [Ratio] 13.5 % Normal 11.5 - 14.5 [facility] Comment on above: Performed By: #### C BCDF #### [address] [address] Hematocrit (Bld) [Volume fraction] 44.0 % Normal 36.0 - 46.0 [facility] Comment on above: Performed By: #### C BCDF #### [address] [address] Hemoglobin (Bld) [Mass/Vol] 14.1 g/dL Normal 12.0 - 16.0 [facility] Comment on above: Performed By: #### C BCDF #### [address] [address] Lymphocytes (Bld) [#/Vol] 2.75 10*3/uL Normal 1.20 - 4.80 [facility] Comment on above: Performed By: #### C BCDF #### [address] [address] Lymphocytes/100 WBC (Bld) 33.0 % Normal 13.0 - 44.0 [facility] Comment on above: Performed By: #### C BCDF #### [address] [address] MCHC (RBC) [Mass/Vol] 32.0 g/dL Normal 32.0 - 36.0 [facility] Comment on above: Performed By: #### C BCDF #### [address] [address] MCV (RBC) [Entitic vol] 97 fL Normal 80 - 100 [facility] Comment on above: Performed By: #### C BCDF #### [address] [address] Monocytes (Bld) [#/Vol] 0.44 10*3/uL Normal 0.10 - 1.00 [facility] Comment on above: Performed By: #### C BCDF #### [address] [address] Monocytes/100 WBC (Bld) 5.3 % Normal 2.0 - 10.0 [facility] Comment on above: Performed By: #### C BCDF #### [address] [address] Neutrophils (Bld) [#/Vol] 4.88 10*3/uL Normal 1.20 - 7.70 [facility] Comment on above: Result Comment: Perc ent differential counts (%) should be interpreted in the context of the absolute cell counts (cells/L). Performed By: #### C BCDF #### [address] [address] Neutrophils/100 WBC (Bld) 58.5 % Normal 40.0 - 80.0 [facility] Comment on above: Performed By: #### C BCDF #### [address] [address] Platelets (Bld) [#/Vol] 133 10*3/uL Low 150 - 450 [facility] Comment on above: Performed By: #### C BCDF #### [address] [address] RBC 4.53 x10E12/L Normal 4.00 - 5.20 [facility] Comment on above: Performed By: #### C BCDF #### [address] [address] WBC (Bld) [#/Vol] 8.3 10*3/uL Normal 4.4 - 11.3 [facility] Comment on above: Performed By: #### C BCDF #### [address] [address] COMPREHENSIVE PANELon 05-20- 2022 Albumin [Mass/Vol] 4.5 g/dL Normal 3.4 - 5.0 [facility] Comment on above: Performed By: #### C MP #### [address] [address] ALP [Catalytic activity/Vol] 37 U/L Normal 33 - 110 [facility] Comment on above: Performed By: #### C MP #### [address] [address] ALT [Catalytic activity/Vol] 10 U/L Normal 7 - 45 [facility] Comment on above: Result Comment: Lisa ents treated with Sulfasalazine may generate falsely decreased results for ALT. Performed By: #### C MP #### [address] [address] Anion gap [Moles/Vol] 10 mmol/L Normal 10 - 20 [facility] Comment on above: Performed By: #### C MP #### [address] [address] AST [Catalytic activity/Vol] 14 U/L Normal 9 - 39 [facility] Comment on above: Performed By: #### C MP #### [address] [address] Bilirubin [Mass/Vol] 0.5 mg/dL Normal 0.0 - 1.2 [facility] Comment on above: Performed By: #### C MP #### [address] [address] Calcium [Mass/Vol] 9.3 mg/dL Normal 8.6 - 10.3 [facility] Comment on above: Performed By: #### C MP #### [address] [address] Chloride [Moles/Vol] 104 mmol/L Normal 98 - 107 [facility] Comment on above: Performed By: #### C MP #### [address] [address] Creatinine [Mass/Vol] 0.92 mg/dL Normal 0.50 - 1.05 [facility] Comment on above: Performed By: #### C MP #### [address] [address] GFR/1.73 sq M.predicted among non-blacks MDRD (S/P/Bld) [Vol rate/Area] 79 mL/min/{1.73_m2} Normal >90 [facility] Comment on above: Result Comment: CALC ULATIONS OF ESTIMATED GFR ARE PERFORMED USING THE 2020 CKD-EPI STUDY REFIT EQUATION WITHOUT THE RACE VARIABLE FOR THE IDMS-TRACEABLE CREATININE METHODS. https://jasn.asnjournals.org/content//ASN.15844 [address] Performed By: #### C MP #### [address] [address] Glucose [Mass/Vol] 80 mg/dL Normal 74 - 99 [facility] Comment on above: Performed By: #### C MP #### [address] [address] HCO3 (Bld) [Moles/Vol] 27 mmol/L Normal 21 - 32 [facility] Comment on above: Performed By: #### C MP #### [address] [address] Potassium [Moles/Vol] 4.2 mmol/L Normal 3.5 - 5.3 [facility] Comment on above: Performed By: #### C MP #### [address] [address] Protein [Mass/Vol] 6.5 g/dL Normal 6.4 - 8.2 [facility] Comment on above: Performed By: #### C MP #### [address] [address] Sodium [Moles/Vol] 137 mmol/L Normal 136 - 145 [facility] Comment on above: Performed By: #### C MP #### [address] [address] Urea nitrogen [Mass/Vol] 9 mg/dL Normal 6 - 23 [facility] Comment on above: Performed By: #### C MP #### [address] [address] CORTISOL,UNSPECIFIEDon 05-20 Lab Specimen Source Normal [facility] Comment on above: Performed By: #### C ORUN #### [facility] [address] [place] [address] Performed By: #### V TB12 #### [address] [address] Performed By: #### C MP #### [address] [address] Performed By: #### C BCDF #### [address] [address] Performed By: #### Tahir TDDI #### [facility] [address] [place] [address] VITAMIN B12on 05-20-2023 Cobalamin (Vitamin B12) [Mass/Vol] 688 pg/mL Normal 211 - 911 [facility] Comment on above: Performed By: #### V TB12 #### [address] [address] CBCon 11-21-2022 Erythrocyte distribution width (RBC) [Ratio] 13.3 % Normal 11.5 - 14.5 [facility] Comment on above: Performed By: #### C BC #### [address] [address] Hematocrit (Bld) [Volume fraction] 46.1 % High 36.0 - 46.0 [facility] Comment on above: Performed By: #### C BC #### [address] [address] Hemoglobin (Bld) [Mass/Vol] 15.0 g/dL Normal 12.0 - 16.0 [facility] Comment on above: Performed By: #### C BC #### [address] [address] MCHC (RBC) [Mass/Vol] 32.5 g/dL Normal 32.0 - 36.0 [facility] Comment on above: Performed By: #### C BC #### [address] [address] MCV (RBC) [Entitic vol] 95 fL Normal 80 - 100 [facility] Comment on above: Performed By: #### C BC #### [address] [address] Platelets (Bld) [#/Vol] 193 10*3/uL Normal 150 - 450 [facility] Comment on above: Performed By: #### C BC #### [place] [address] RBC 4.84 x10E12/L Normal 4.00 - 5.20 [facility] Comment on above: Performed By: #### C BC #### [address] [address] WBC (Bld) [#/Vol] 10.5 10*3/uL Normal 4.4 - 11.3 [facility] Comment on above: Performed By: #### C BC #### [address] [address] VITAMIN B12on 11-21-2022 Cobalamin (Vitamin B12) [Mass/Vol] 233 pg/mL Normal 211 - 911 [facility] Comment on above: Performed By: #### V TB12 #### [address] [address] Lab Specimen Source Normal [facility] Comment on above: Performed By: #### V TB12 #### [address] [address] Performed By: #### C BC #### [address] [address] Performed By: #### V TDOH #### [address] [address] VITAMIN D, 25-HYDROXYon 10-30 VITAMIN D, 25-HYDROXY 33 ng/mL Normal [facility] Comment on above: Result Comment: . DEFICIENCY: < 20 NG/ML INSUFFICIENCY: 20-29 NG/ML SUFFICIENCY: 30-100 NG/ML THIS ASSAY ACCURATELY QUANTIFIES THE SUM OF VITAMIN D3, 25-HYDROXY AND VIT D2,25-HYDROXY. Performed By: #### V TDOH #### [address] [address] Radiologyon 04-16-2022 XR Hand 3 Views Normal [facility] Work Phone: [facility]on 03-27-2022 Follow-up visit Diagnoses/Problems Anxiety (300.00) (F41.9) Encounter for weight management (V65.49) (Z76.89) BMI 27.0-27.9,adult (V85.23) (Z68.27) Orders Anxiety Start: buPROPion HCl ER (SR) 150 MG Oral Tablet Extended Release 12 Hour; Take 1 tablet daily Anxiety, Encounter for weight management Follow-up visit in 1 month Outpatient Follow-up Status: Hold For - Scheduling Requested for: 30Cdt4406 BMI 27.0-27.9,adult, Weight gain Renew: Phentermine HCl [...] consuming 800-1100 calories daily recommend she consume 7762-6673 calories daily. She is willing to start [...] gain Multi-Vitamins TABS Vitals Vital Signs Recorded: 08Mdd0996 08:03AM Ldfhunkknfh73.1 F Heart Pbxg512 Hvyfmkcl735 Ccwaoptvx96 Height5 ft 2 in Vbdste618 lb 6 oz BMI Fkscacqxxz69.14 kg/m2 BSA Calculated1.68 Tobacco Usea) Yes Patient [...] and Scales' Signatures Electronically signed by : Syeda Tripp APRN-CURT; Mar 27 2022 9:20AM EST (Author) [facility] Tobacco Screening.on [address] [facility] a) Yes H[employer] An [facility]opi [facility] Work Phone: Tobacco Screening. Yes Hire An EsquireEloy [employer] [facility] Work Phone: [facility] 02-27-[facility] Follow-up visit Diagnoses/Problems Weight gain (783.1) [...] Weight management: Continue with lifestyle changes including 1361-3002 calorie diet, low sugar, low fat. Increase [...] Vital Signs Recorded: 27Feb2022 01:20PM Heart Rate68 Vgsdbtpw375 Ipdruwjtl67 Height5 ft 2 in Eknxju553 lb 7 oz BMI Afilwuvmyw37.33 kg/m2 BSA Calculated1.69 Tobacco Usea) Yes Patient [...] [employer] Tobacco Screening.on [address] [facility] a) Yes [employer] Work Phone: Tobacco Screening. Yes [employer] Work Phone: Heart Rateon 01-28-2022 Adult depression screening assessment No [employer] Work Phone: Heart Rate Regular [employer] Work Phone: Tobacco use status [facility] a) Yes [employer] Work Phone: Heart Rate Yes [employer] Work Phone: Office Visit ([facility])on 01-28-2022 Follow-up visit Diagnoses/Problems Weight gain (783.1) (R63.5) BMI 27.0-27.9,adult (V85.23) (Z68.27) Orders BMI 27.0-27.9,adult, Weight gain Start: Phentermine HCl - 37.5 MG Oral Capsule (Adipex-P); TAKE 1 CAPSULE EVERY MORNING BEFORE BREAKFAST Follow-up visit in 1 month Outpatient Follow-up Status: Hold For - Scheduling Requested for: 28Jan2022 Provider Impressions Weight gain/BMI 27: Will start [...] insight: Intact. Mood and affect: Normal. Results/Data Dioaktftkukxjp96Iid7311 09:02Syeda Marshall Test NameResultFlagReference Echocardiogram(Report) [id number] 83.[address] [place] [address] ext-2528, TRANSTHORACIC ECHOCARDIOGRAM REPORT Patient Name: MAYO Frederick IRVIN Reading Physician: [id number] Sebastian Adams MD Study Date: 01/22/2022 Referring [id number] SYEDA TRIPP Physician: MRN/PID: [id number] PCP: Accession/Order#: [id number] Department [facility] Echo Lab Location: Date of : 1980 Fellow: Gender: F Nurse: Admit Date: Is Analyst: Kyle Blanco [facility] Admission Status: Outpatient Additional Staff: Height: 157.48 cm CC Report to: Weight: 68.04 kg Study Type: Echocardiogram BSA: 1.69 m2 Blood Pressure: 120 /83 mmHg Diagnosis/ICD: I42.2-Other hypertrophic cardiomyopathy Indication: Procedure/CPT: Echo Complete w Full Doppler-[id number] Study Detail: The (more content not included)... [facility] Electrocardiogram 12 Leadon 05-25-2022 Electrocardiogram 12 Lead Ventricular Rate 68 Atrial Rate 68 P-R Interval 146 QRS Duration 80 Q-T Interval 408 QTC Calculation(Bazett) 433 P [place] 27 R [place] 120 T [place] 43 QRS Count 11 Q Onset 223 P Onset 150 P Offset 194 T Offset 427 QTC Fredericia 425 Diagnosis Class Abnormal Diagnosis Normal sinus rhythm Abnormal ECG No previous ECGs available Confirmed by Sebastian Adams (85) on 01/22/2022 10:44:[address] [facility] No Panel Informationon 01-22 [email or web address] ?[email or web address]&Date =22-01-2022&Time=08%3a40% 3a43%3a00&TestType=ECG&Si te=14&OutputType=PDF&Ext= PDF -[facility] Work Phone: [phone] Normal sinus rhythm MP-[facility] Work Phone: Abnormal -[facility] Work Phone: [phone] -[facility] Work Phone: [phone] -[facility] Work Phone: [phone] -[facility] Work Phone: [phone] -[facility] Work Phone: [phone] -[facility] Work Phone: [phone] -[facility] Work Phone: [phone] -[facility] Work Phone: [phone] -[facility] Work Phone: [phone] -[facility] Work Phone: [phone] -[facility] Work Phone: [phone] MP-[facility] Work Phone: [phone] -[facility] Work Phone: [phone] MP-[facility] Work Phone: [phone] MP-[facility] Work Phone: BASIC METABOLIC PANELon 05-0 Anion gap [Moles/Vol] 11 mmol/L Normal 10 - 20 [facility] Comment on above: Performed By: #### B MP #### [address] [address] Calcium [Mass/Vol] 9.4 mg/dL Normal 8.6 - 10.3 [facility] Comment on above: Performed By: #### B MP #### [address] [address] Chloride [Moles/Vol] 104 mmol/L Normal 98 - 107 [facility] Comment on above: Performed By: #### B MP #### [address] [address] Creatinine [Mass/Vol] 0.80 mg/dL Normal 0.50 - 1.05 [facility] Comment on above: Performed By: #### B MP #### [address] [address] eGFR FEMALE >90 Normal >90 [facility] Comment on above: Result Comment: CALC ULATIONS OF ESTIMATED GFR ARE PERFORMED USING THE 2020 CKD-EPI STUDY REFIT EQUATION WITHOUT THE RACE VARIABLE FOR THE IDMS-TRACEABLE CREATININE METHODS. https://jasn.asnjournals.org/content/early//ASN.78897 [address] Performed By: #### B MP #### [address] [address] Glucose [Mass/Vol] 88 mg/dL Normal 74 - 99 [facility] Comment on above: Performed By: #### B MP #### [address] [address] HCO3 (Bld) [Moles/Vol] 27 mmol/L Normal 21 - 32 [facility] Comment on above: Performed By: #### B MP #### [address] [address] Potassium [Moles/Vol] 4.4 mmol/L Normal 3.5 - 5.3 [facility] Comment on above: Performed By: #### B MP #### [address] [address] Sodium [Moles/Vol] 138 mmol/L Normal 136 - 145 [facility] Comment on above: Performed By: #### B MP #### [address] [address] Urea nitrogen [Mass/Vol] 10 mg/dL Normal 6 - 23 [facility] Comment on above: Performed By: #### B MP #### [address] [address] CBCon 12-31-2021 Erythrocyte distribution width (RBC) [Ratio] 13.8 % Normal 11.5 - 14.5 [facility] Comment on above: Performed By: #### C BC #### [address] [address] Hematocrit (Bld) [Volume fraction] 43.3 % Normal 36.0 - 46.0 [facility] Comment on above: Performed By: #### C BC #### [address] [address] Hemoglobin (Bld) [Mass/Vol] 14.7 g/dL Normal 12.0 - 16.0 [facility] Comment on above: Performed By: #### C BC #### [address] [address] MCHC (RBC) [Mass/Vol] 34.0 g/dL Normal 32.0 - 36.0 [facility] Comment on above: Performed By: #### C BC #### [address] [address] MCV (RBC) [Entitic vol] 92 fL Normal 80 - 100 [facility] Comment on above: Performed By: #### C BC #### [address] [address] Platelets (Bld) [#/Vol] 187 10*3/uL Normal 150 - 450 [facility] Comment on above: Performed By: #### C BC #### [address] [address] RBC 4.69 x10E12/L Normal 4.00 - 5.20 [facility] Comment on above: Performed By: #### C BC #### [address] [address] WBC (Bld) [#/Vol] 11.6 10*3/uL High 4.4 - 11.3 [facility] Comment on above: Performed By: #### C BC #### [address] [address] LIPID PANEL (CORONARY RISK 2 )on 12-31-2021 Cholesterol [Mass/Vol] 170 mg/dL Normal 0 - 199 [facility] Comment on above: Result Comment: . [...] dosing. Performed By: #### L IPID #### [address] [address] Cholesterol in HDL [Mass/Vol] 50.0 mg/dL Normal [facility] Comment on above: Result Comment: . AGE VERY LOW LOW NORMAL HIGH 0-19 Y < 35 < 40 40-45 ---- 20-24 Y ---- < 40 >45 ---- >24 Y ---- < 40 40-60 >60 . Performed By: #### L IPID #### [address] [address] Cholesterol in LDL [Mass/Vol] 102 mg/dL High 0 - 99 [facility] Comment on above: Result Comment: . NEAR BORD AGE DESIRABLE OPTIMAL HIGH HIGH VERY HIGH 0-19 Y 0 - 109 --- 110-129 >/= 130 ---- 20-24 Y 0 - 119 --- 120-159 >/= 160 ---- >24 Y 0 - 99 100-129 130-159 160-189 >/=190 . Performed By: #### L IPID #### [address] [address] Cholesterol in VLDL [Mass/Vol] 18 mg/dL Normal 0 - 40 [facility] Comment on above: Performed By: #### L IPID #### [address] [address] Cholesterol.total/Chol esterol in HDL [Mass ratio] 3.4 {ratio} Normal [facility] Comment on above: Result Comment: REF VALUES DESIRABLE < 3.4 HIGH RISK > 5.0 Performed By: #### L IPID #### [address] [address] Triglyceride [Mass/Vol] 89 mg/dL Normal 0 - 149 [facility] Comment on above: Result Comment: . [...] dosing. Performed By: #### L IPID #### [address] [address] Laboratory - Chemistry and C hemistry - challengeon 12-31-2021 Anion gap [Moles/Vol] 11 mmol/L 10 - 20 [facility] Work Phone: Calcium [Mass/Vol] 9.4 mg/dL 8.6 - 10.3 [facility] Work Phone: Chloride [Moles/Vol] 104 mmol/L 98 - 107 -[facility] Work Phone: CO2 [Moles/Vol] 27 mmol/L 21 - 32 [facility] Work Phone: Creatinine [Mass/Vol] 0.80 mg/dL See Below [facility] Work Phone: Comment on above: Reference Range: 0.5 0 - 1.05 Glucose [Mass/Vol] 88 mg/dL 74 - 99 [facility] Work Phone: Potassium [Moles/Vol] 4.4 mmol/L 3.5 - 5.3 [facility] Work Phone: Sodium [Moles/Vol] 138 mmol/L 136 - 145 [facility] Work Phone: TSH Qn 0.90 m[IU]/L See Below [facility] Work Phone: Comment on above: Reference Range: 0.4 4 - 3.98 TSH testing is performed using different testing methodology at [facility] than at other [facility] [place] [facility]. Direct result comparisons should only be made within the same method. Urea nitrogen [Mass/Vol] 10 mg/dL 6 - 23 [facility] Work Phone: Laboratory - Hematology and Cell countson 12-31-2021 Erythrocyte distribution width (RBC) [Ratio] 13.8 % See Below [facility] Work Phone: Comment on above: Reference Range: 11. 5 - 14.5 Hematocrit (Bld) [Volume fraction] 43.3 % See Below [facility] Work Phone: Comment on above: Reference Range: 36. 0 - 46.0 Hemoglobin (Bld) [Mass/Vol] 14.7 g/dL See Below [facility] Work Phone: Comment on above: Reference Range: 12. 0 - 16.0 MCHC (RBC) [Mass/Vol] 34.0 g/dL See Below [facility] Work Phone: Comment on above: Reference Range: 32. 0 - 36.0 MCV (RBC) [Entitic vol] 92 fL 80 - 100 [facility] Work Phone: Platelets (Bld) [#/Vol] 187 10*3/uL 150 - 450 [facility] Work Phone: RBC (Bld) [#/Vol] 4.69 {x10E12/L} See Below [facility] Work Phone: Comment on above: Reference Range: 4.0 0 - 5.20 WBC (Bld) [#/Vol] 11.6 10*3/uL above high threshold 4.4 - 11.3 [facility] Work Phone: Lipid Panelon 12-31-2021 Cholesterol [Mass/Vol] 170 mg/dL 0 - 199 [facility] Work Phone: Comment on above: [...] dosing. Cholesterol in HDL [Mass/Vol] 50.0 mg/dL [facility] Work Phone: Comment on above: . AGE VERY LOW LOW N ORMAL HIGH 0-19 Y < 35 < 40 40-45 ---- 20-24 Y ---- < 40 >45 ---- >24 Y ---- < 40 40-60 >60. Cholesterol in LDL [Mass/Vol] 102 mg/dL above high threshold 0 - 99 [facility] Work Phone: Comment on above: . NEAR BORD AGE FAUSTO RABLE OPTIMAL HIGH HIGH VERY HIGH 0-19 Y 0 - 109 --- 110-129 >/= 130 ---- 20-24 Y 0 - 119 --- 120-159 >/= 160 ---- >24 Y 0 - 99 100-129 130-159 160-189 >/=190. Cholesterol.total/Chol esterol in HDL [Mass ratio] 3.4 {ratio} [facility] Work Phone: Comment on above: REF VALUESDESIRABLE < 3.4HIGH RISK > 5.0 Triglyceride [Mass/Vol] 89 mg/dL 0 - 149 [facility] Work Phone: Comment on above: . [...] Lipid Panel 18 mg/dL 0 - 40 [facility] Work Phone: No Panel Informationon 12-31 >90 >90 [facility] Glio Phone: Comment on above: CALCULATIONS OF OZZY MATED GFR ARE PERFORMED USING THE 2020 CKD-EPI STUDY REFIT EQUATION WITHOUT THE RACE VARIABLE FOR THE IDMS-TRACEABLE CREATININE METHODS.https://jasn.asnjournals.org/content/early//A SN.7362444646 Office [facility]on 12-31-2021 Follow-up visit Diagnoses/Problems Encounter [...] if cardiac testing is normal. 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 Adult Risk Screening Tobacco Screening: MAYO [...] nose: Carmelina (more content not included)... Normal [employer] TSH WITH REFLEX TO FREE T4 I F ABNORMALon 12-31-2021 TSH Qn 0.90 m[IU]/L Normal 0.44 - 3.98 [facility] Comment on above: Result Comment: TSH testing is performed using different testing methodology at [facility] than at other [facility] [place] [facility]. Direct result comparisons should only be made within the same method. Performed By: #### T HYDS #### [place] [id number] Tobacco Screening.on Tobacco use status CPHS a) Yes [facility] Work Phone: Tobacco Screening. Yes [facility] Work Phone: VITAMIN B12on 12-31-2021 Cobalamin (Vitamin B12) [Mass/Vol] 219 pg/mL Normal 211 - 911 [facility] Comment on above: Performed By: #### V TB12 #### [place] [id number] VITAMIN D, 25-HYDROXYon VITAMIN D, 25-HYDROXY 39 ng/mL Normal [facility] Comment on above: Result Comment: . DEFICIENCY: < 20 NG/ML INSUFFICIENCY: 20-29 NG/ML SUFFICIENCY: 30-100 NG/ML THIS ASSAY ACCURATELY QUANTIFIES THE SUM OF VITAMIN D3, 25-HYDROXY AND VIT D2,25-HYDROXY. Performed By: #### V TDOH #### [address] [address] Vitamin B12, Serumon 022 Cobalamin (Vitamin B12) [Mass/Vol] 219 pg/mL 211 - 911 [facility] Work Phone: Vitamin D 25-Hydroxyon 12-31 25-hydroxyvitamin D3 [Mass/Vol] 39 ng/mL [facility] Work Phone: Comment on above: .DEFICIENCY: < 20 NG /MLINSUFFICIENCY: 20-29 NG/MLSUFFICIENCY: 30-100 NG/MLTHIS ASSAY ACCURATELY QUANTIFIES THE SUM OFVITAMIN D3, 25-HYDROXY AND VIT D2,25-HYDROXY. Phone Msgon 06-23-2018 Phone Msg - From: Anjali Stephenson MA Sent: 06/23/2018 13:40:39 EDT Subject: echo results left message test was ok no significant changes per Dr. Candelario [facility] Amb Office-Progress Notes-Pr ovideron 06-16-2018 Protein mass conc Patient: MAYO HORTA Age: 38 years Sex: Female : 1980 Associated Diagnoses: None Author: JOE STERLING, THAN Visit Information Visit type: Scheduled follow-up. Accompanied [...] 34 Years. Social History Social & Psychosocial AzyticAdgxgxj98/02/2017 Use: Current Frequency: 1-2 times per kbutfSxpqi72/02/2017 Name: CAFFIENE Comment: 6 CUPS COFFEE DAILY - 06/01/2017 15:28 - Anjali Stephenson MA SSubstance Abuse06/01/2017 Risk Assessment: Denies Substance ZzdtzZyrksbj63/02/2017 Use: 5-9 cigarettes (between 1 Type: Cigarettes. Physical Examination Temperature 97.3 (09:20)Systolic Blood Pressure 118 (09:32)Diastolic Blood Pressure 68 (09:32)Pulse 88 (09:20)SpO2 No resultRespiratory Rate No result VS/Measurements Documented vital signs, Vital Signs (last 24 hrs) Last Charted Heart Rate Peripheral 88 bpm (JUN 16:18)SBP 118 mmHg (JUN 16 09:32)DBP 68 mmHg (JUN 16 09:32)Weight 66 kg (JUN 16:18)Height 155 cm (JUN 16:18)BMI 27.47 (JUN 16:18) General: Alert and oriented, No acute distress. [...] needed.Electronically signed by Dr. Effie Diaz. Normal [facility] Provider Letter - Ambulatory on 06-16-2018 Protein mass conc HEIDI SR, [address] [address]ZH: MAYO HORTA - 1980Helen HEIDI ORIN This document is confidential and intended solely [...] this document, please contact the office.Sincerely,JOE STERLING, [facility] HospitalThe following document(s) were included in the letter:June 16, 2018 09:33:00 EDT - (06/16/2018) Cardiology Office Note with BMI Normal [facility] Vital Signs Date Time Vital Sign Value Performing Clinician Nia mann 02-08-2025 07:47-0400 Body mass index (BMI) [Ratio] 27.9 kg/m2 Dr. Deborah Badillo MD Work Phone: [facility] 02-08-2025 07:47-0400 Body temperature 97.5 [degF] Dr. Deborah Badillo MD Work Phone: [facility] 02-08-2025 07:47-0400 Body weight 67.[address] Deborah Badillo MD Work Phone: [facility] 02-08-2025 07:47-0400 Diastolic blood pressure 77 mm[Hg] Dr. Deborah Badillo MD Work Phone: [facility] 02-08-2025 07:47-0400 Heart rate 79 /min Dr. Deborah Badillo MD Work Phone: [facility] 02-08-2025 07:47-0400 Respiratory rate 16 /min Dr. Deborah Badillo MD Work Phone: [facility] 02-08-2025 07:47-0400 SaO2% (BldA) [Mass fraction] 99 % Dr. Deborah Badillo MD Work Phone: [facility] 02-08-2025 07:47-0400 Systolic blood pressure 114 mm[Hg] Dr. Deborah Badillo MD Work Phone: [facility] 02-03-2025 08:10-0400 Body temperature 98.2 [degF] Dr. Deborah Badillo MD Work Phone: [facility] 02-03-2025 08:10-0400 Diastolic blood pressure 70 mm[Hg] Dr. Deborah Badillo MD Work Phone: 6(788)264-043163 [place] [address] 02-03-2025 08:10-0400 Heart rate 63 /min Dr. Deborah Badillo MD Work Phone: 5(412)823-901563 [place] [address] 02-03-2025 08:10-0400 Respiratory rate 16 /min Dr. Deborah Badillo MD Work Phone: 9(809)218-931463 [place] [address] 02-03-2025 08:10-0400 SaO2% (BldA) [Mass fraction] 99 % Dr. Deborah Badillo MD Work Phone: 9(605)993-771663 [place] [address] 02-03-2025 08:10-0400 Systolic blood pressure 105 mm[Hg] Dr. Deborah Badillo MD Work Phone: 7(182)229-129763 [place] [address] 02-03-2025 06:57-0400 Body height 154.[address] Deborah Badillo MD Work Phone: 8(058)058-168763 [place] [address] 02-03-2025 06:57-0400 Body mass index (BMI) [Ratio] 27.1 kg/m2 Dr. Deborah Badillo MD Work Phone: 4(915)160-475263 [place] [address] 02-03-2025 06:57-0400 Body weight 65.[address] Deborah Badillo MD Work Phone: 9(445)749-909563 [place] [address] 01-11-2025 08:42-0400 Body height 154.[address] Deborah Badillo MD Work Phone: 1(000)341-491063 [place] [address] 01-11-2025 08:42-0400 Body mass index (BMI) [Ratio] 28.1 kg/m2 Dr. Deborah Badillo MD Work Phone: 7(622)164-762763 [place] [address] 01-11-2025 08:42-0400 Body weight 67.[address] Deborah Badillo MD Work Phone: [facility] 01-11-2025 08:42-0400 Diastolic blood pressure 77 mm[Hg] Dr. Deborah Badillo MD Work Phone: [facility] 01-11-2025 08:42-0400 Heart rate 80 /min Dr. Deborah Badillo MD Work Phone: [facility] 01-11-2025 08:42-0400 Respiratory rate 17 /min Dr. Deborah Badillo MD Work Phone: [facility] 01-11-2025 08:42-0400 SaO2% (BldA) [Mass fraction] 98 % Dr. Deborah Badillo MD Work Phone: [facility] 01-11-2025 08:42-0400 Systolic blood pressure 117 mm[Hg] Dr. Deborah Badillo MD Work Phone: [facility] 01-09-2025 08:02-0400 Body mass index (BMI) [Ratio] 28.2 kg/m2 Dr. Deborah Badillo MD Work Phone: [facility] 01-09-2025 08:02-0400 Body weight 67.[address] Deborah Badillo MD Work Phone: [facility] 01-09-2025 08:02-0400 Diastolic blood pressure 79 mm[Hg] Dr. Deborah Badillo MD Work Phone: [facility] 01-09-2025 08:02-0400 Systolic blood pressure 141 mm[Hg] Dr. Deborah Badillo MD Work Phone: [facility] 05-21-2023 10:53-0400 Body height 157.5 cm Syeda Tripp APRN-CURT Work Phone: [facility] 05-21-2023 10:53-0400 Body mass index (BMI) [Ratio] 26.76 kg/m2 Syeda [place] HEAD OF BIOLOGY-BACK ROLLER Work Phone: [facility] 05-21-2023 10:53-0400 Body temperature 97.11 [degF] Syeda Tripp HEAD OF BIOLOGY-BACK RO[employer]ER Work Phone: [facility] 05-21-2023 10:53-0400 Body weight 66.36 kg Syeda Tripp HEAD OF BIOLOGY-[employer] RO[employer]ER Work Phone: [facility] 05-21-2023 10:53-0400 Diastolic blood pressure 77 mm[Hg] Syeda Tripp HEAD OF BIOLOGY-BACK RO[employer]ER Work Phone: [facility] 05-21-2023 10:53-0400 Heart rate 72 /min Syeda Tripp HEAD OF BIOLOGY-BACK RO[employer]ER Work Phone: [facility] 05-21-2023 10:53-0400 Systolic blood pressure 106 mm[Hg] Syeda Tripp HEAD OF BIOLOGY-BACK ROLLER Work Phone: [facility] 03-27-2022 08:03-0400 Body height 157.48 cm Syeda Stilld Work Phone: -[facility] Work Phone: 03-27-2022 08:03-0400 Body mass index (BMI) [Ratio] 27.14 kg/m2 Syeda Stilld Work Phone: [facility] Work Phone: 03-27-2022 08:03-0400 Body surface area Derived from formula 1.68 m2 Syeda Stilld Work Phone: -[facility] Work Phone: 03-27-2022 08:03-0400 Body temperature 98.1 [degF] Syeda Stilld Work Phone: -[facility] Work Phone: 03-27-2022 08:03-0400 Body weight 67.31 kg Syeda Stilld Work Phone: -[facility] Work Phone: 03-27-2022 08:03-0400 Diastolic blood pressure 85 mm[Hg] Syeda Raines [place] Work Phone: [facility] Work Phone: 03-27-2022 08:03-0400 Heart rate 102 /min Syeda Raines [place] Work Phone: [facility] Work Phone: 03-27-2022 08:03-0400 Systolic blood pressure 119 mm[Hg] Syeda Raines [place] Work Phone: [facility] Work Phone: 02-27-2022 13:20-0400 Body height 157.48 cm Syeda Raines [place] Work Phone: [facility] Work Phone: 02-27-2022 13:20-0400 Body mass index (BMI) [Ratio] 27.33 kg/m2 Syeda Raines [place] Work Phone: [facility] Work Phone: 02-27-2022 13:20-0400 Body surface area Derived from formula 1.69 m2 Syeda Stilld Work Phone: [facility] Work Phone: 02-27-2022 13:20-0400 Body weight 67.79 kg Syeda Raines [place] Work Phone: [facility] Work Phone: 02-27-2022 13:20-0400 Diastolic blood pressure 70 mm[Hg] Syeda Raines [place] Work Phone: [facility] Work Phone: 02-27-2022 13:20-0400 Heart rate 68 /min Syeda Raines [place] Work Phone: [facility] Work Phone: 02-27-2022 13:20-0400 Systolic blood pressure 112 mm[Hg] Syeda Tripp Work Phone: [facility] Work Phone: 01-28-2022 08:57-0400 Body height 157.48 cm Syeda Stilld Work Phone: [facility] Work Phone: 01-28-2022 08:57-0400 Body mass index (BMI) [Ratio] 27.98 kg/m2 Syeda Stilld Work Phone: [facility] Work Phone: 01-28-2022 08:57-0400 Body surface area Derived from formula 1.71 m2 Syeda Stilld Work Phone: [facility] Work Phone: 01-28-2022 08:57-0400 Body temperature 98.3 [degF] Syeda Stilld Work Phone: [facility] Work Phone: 01-28-2022 08:57-0400 Body weight 69.4 kg Syeda Tripp Work Phone: [facility] Work Phone: 01-28-2022 08:57-0400 Diastolic blood pressure 90 mm[Hg] Syeda Stilld Work Phone: [facility] Work Phone: 01-28-2022 08:57-0400 Heart rate 67 /min Syeda Stilld Work Phone: [facility] Work Phone: 01-28-2022 08:57-0400 Respiratory rate 18 /min Syeda Stilld Work Phone: [facility] Work Phone: 01-28-2022 08:57-0400 SaO2% (BldA) [Mass fraction] 99 % Syeda Stilld Work Phone: [facility] Work Phone: 01-28-2022 08:57-0400 Systolic blood pressure 126 mm[Hg] Syeda Stilld Work Phone: [facility] Work Phone: 12-31-2021 09:33-0400 Body height 158.75 cm Syeda Stilld Work Phone: [facility] Work Phone: 12-31-2021 09:33-0400 Body mass index (BMI) [Ratio] 27.98 kg/m2 Syeda Stilld Work Phone: [facility] Work Phone: 12-31-2021 09:33-0400 Body surface area Derived from formula 1.73 m2 Syeda Stilld Work Phone: [facility] Work Phone: 12-31-2021 09:33-0400 Body weight 70.51 kg Syeda Stilld Work Phone: [facility] Work Phone: 12-31-2021 09:33-0400 Diastolic blood pressure 92 mm[Hg] Syeda Stilld Work Phone: [facility] Work Phone: 12-31-2021 09:33-0400 Heart rate 76 /min Syeda Stilld Work Phone: [facility] Work Phone: 12-31-2021 09:33-0400 Systolic blood pressure 132 mm[Hg] Syeda Raines [place] Work Phone: [facility] Work Phone: Encounters Encounter Date Encounter Type Care Provider Facility Start: 03-15-2025 ambulatory No Primary Car e Physician Facility:[facility] Start: 03-01-2025 ambulatory Deborah Kramer lity:[facility] Start: 02-08-2025 End: 02-08-2025 Patient encounter procedure Carmen SERRA -[facility] Work Phone: Start: 02-08-2025 End: 02-08-[address] Deborah Badillo MD Work Phone: [facility] Work Phone: Start: 02-03-2025 Non-patient / Non-visit Dr. Jack Arredondo MD -[facility] Start: 02-03-2025 End: 02-03-2025 Admission to same day surgery center Dr. Jack Arredondo MD -Endoscopy Work Phone: Start: 02-03-2025 End: 02-03-[address] Deborah Badillo MD Work Phone: [facility] Work Phone: Start: 01-11-2025 End: 01-11-[address] Jack Arredondo MD -[facility] Work Phone: Start: 01-11-2025 End: 01-11-[address] Deborah Badillo MD Work Phone: [facility] Work Phone: Start: 01-10-2025 End: 01-10-[address] Deborah Badillo MD Work Phone: [facility] Work Phone: Start: 01-10-2025 End: 01-10-[address] Deborah Badillo MD -Lab, [facility] Start: 01-09-2025 End: 01-10-[address] Deborah Badillo MD Work Phone: [facility] Work Phone: Start: 01-09-2025 End: 01-09-[address] Deborah Badillo MD -Laboratory, Specimen Work Phone: Start: 01-09-2025 End: 01-09-[address] Deborah Badillo MD -[facility] Work Phone: Start: 01-09-2025 End: 01-09-[address] 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 Work Phone: [facility] Comment on above: Loud snoring (Primar y Dx); Daytime sleepiness; Urticaria Start: 05-21-2023 End: 05-21-2023 ambulatory [facility] Start: 05-20-2023 End: 05-21-2023 ambulatory [facility] Start: 11-28-2022 End: 11-28-2022 ambulatory [facility] Start: 11-22-2022 End: 11-25-2022 ambulatory [facility] Start: 11-21-2022 End: 11-22-2022 ambulatory [facility] Start: 04-21-2022 AUDIT Syedatigist Tripp Work Phone: [facility] Work Phone: Start: 04-17-2022 Chart Update Syeda L Josee Work Phone: [facility] Work Phone: Start: 02-27-2022 Office outpatient vi sit 15 minutes Syeda L Josee Work Phone: [facility] Work Phone: Start: 01-28-2022 Office outpatient vi sit 15 minutes Syeda Stilld Work Phone: [facility] Work Phone: Start: 01-22-2022 ECHO, Provider: WALTER PINA ECHO 1,SMCECHO1, Status: Pen, Time: 8:00 AM Syeda Tripp Work Phone: [facility] Work Phone: Start: 01-21-2022 AUDIT Syeda Tripp Work Phone: [facility] Work Phone: Start: 01-02-2022 Chart Update Syeda Tripp Work Phone: [facility] Work Phone: Start: 12-31-2021 Patient encounter procedure Syeda Tripp Work Phone: [facility] Work Phone: Start: 12-31-2021 Tobacco use cessatio n intermediate 3-10 minutes Syeda Tripp Work Phone: [facility] Work Phone: Start: 06-23-2018 Patient encounter HEIDI SR Facility:[facility] Start: 06-22-2018 End: 06-23-2018 Patient encounter [facility] Start: 06-16-2018 End: 06-17-2018 Patient encounter [facility] Facility[facility] Procedures Date Procedure Procedure Detail Performing Clinician Start: 02-03-[address] Deborah Badillo MD Work Phone: Start: 01-10-2025 Vitamin D, 25-hydrox y measurement [...] therefore, no HPV testing was performed.Performed at: [facility] [address] [place] [id number] Director: Amy Ball MD, Phone: [phone] Start: 05-20-2023 CBC W Auto Different ial panel - Blood SYEDA JOSEE Start: 05-20-2023 Comprehensive metabo lic 2000 panel - Serum or Plasma SYEDA JOSEE Start: 05-20-2023 CORTISOL SYEDA JOSEE Start: 05-20-2023 Cyanocobalamin vitamin b-12 SYEDA JOSEE Start: 05-20-2023 VITAMIN D 1,25 DIHYDROXY SYEDA JOSEE Start: 11-21-2022 CBC panel - Blood by Automated count SYEDA JOSEE Start: 11-21-2022 Cyanocobalamin vitamin b-12 SYEDA JOSEE Start: 11-21-2022 VITAMIN D 25-HYDROXY,TOTAL SYEDA JOSEE Start: 01-22-2022 Echocardiography Syeda L [place] Work Phone: Start: 12-31-2021 Lipid 1996 panel - S lee or Plasma Syeda Stilld HEAD OF BIOLOGY-[employer]ER Work Phone: Start: 07-18-2004 Microscopic observat ion [Identifier] in Cervix by Cyto stain Syeda Stilld HEAD OF BIOLOGY-[employer] RO[employer] Work Phone: Excision of bunion Syeda L L add Work Phone: Hysterectomy Syeda L [place] Work Phone: Plan of Treatment Date Care Activity Detail Author Start: 2029 Zoster Vaccines (1 of 2) Zoste r Vaccines (1 of 2) [facility] Start: 12-31-2026 Lipid panel Lipid Panel [facility] Start: 02-03-2025 Patient discharge [facility] Start: 01-09-[address] [facility] Work Phone: Start: 01-09-2025 Liquid based cervica l cytology screening [facility] Start: 05-21-2023 End: 05-21-2024 Home sleep apnea test (HSAT) Home sleep apnea test (HSAT) Sleep Center Routine Loud snoring Daytime sleepiness Expected: 05/21/2023 (Approximate), Expires: 05/21/2024 [facility] Service Area Work Phone: Comment on above: Expected: 05/21/2023 (Approximate), Expires: 05/21/2024 Start: 05-01-2023 Influenza vaccination Influenz a Vaccine (#1) [facility] Start: 03-27-2022 FUV, Provider: Syeda Tripp, Status: Pen, Time: 1:30 PM FUV, Provider: Syeda Tripp, Status: Pen, Time: 1:30 PM [facility] Work Phone: Start: 11-28-2020 COVID-19 Vaccine (2 - Pfizer series) COVID-19 Vaccine (2 - Pfizer series) [facility] Start: 2019 Screening for malign ant neoplasm of breast Mammogram [facility] Start: 12-14-2007 MMR Vaccines (1 of 1 - Standard series) MMR Vaccines (1 of 1 - Standard series) [facility] Start: 07-18-2007 Screening for malign ant neoplasm of cervix [facility] Start: 2001 DTaP/Tdap/Td Vaccine s (1 - Tdap) DTaP/Tdap/Td Vaccines (1 - Tdap) [facility] Start: 2000 Screening for malign ant neoplasm of cervix HPV/Cotest [facility] Start: 1997 Diabetes mellitus screening Diabetes Screening [facility] Start: 1997 Hepatitis C screening Hepatiti s C Screening [facility] Start: 1979 Hepatitis B Vaccines (1 of 3 - 3-dose series) Hepatitis B Vaccines (1 of 3 - 3-dose series) [facility] Start: 1979 HIV screening HIV Screening [facility] Start: 1979 Yearly Adult Physical Yearly A dult Physical [facility] Colonoscopy [facility] MG Breast - bilatera l Screening [facility] Path report.final Dx Spec Wo dvaonte [facility] Patient referral [facility] Work Phone: Polysomnography [facility] Immunizations Immunization Date Immunization Notes Care Provider Fa cility 07-01-2023 influenza, injectabl e, quadrivalent, preservative free Dr. Deborah Badillo MD Work Phone: [facility] 10-03-2020 Pfizer-BioNTech COVID-19 Vacc 30 MCG/0.3ML Intramuscular Suspension Syeda Raines [place] Work Phone: [facility] Work Phone: 11-16-2007 varicella virus vaccine Adelina nghia Tripp Work Phone: [facility] Work Phone: Payers Date Payer Category Payer Self-pay 2017 Private Health [facility] [id number] 2017-Present [id number] [place] [address] [id number] 2017 Private Health Insurance [id number] 2008 Private Health Insurance [id number] 1979 Unknown [id number] 2.16.840.1.110847.3.579.2 .159 1979 Unknown [id number] 2.16.840.1.706508.3.579.2 .159 1979 Unknown [id number] 2.16.840.1.796733.3.579.2 .159 1979 Unknown [id number] 2.16.840.1.556782.3.579.2 .1245 1979 Unknown [id number] 2.16.840.1.006378.3.579.2 .1245 1979 Unknown [id number] 2.16.840.1.515599.3.579.2 .1244 1979 Unknown [id number] 2.16.840.1.190535.3.579.2 .1244 1979 Unknown [id number] 2.16.840.1.753966.3.579.2 .1244 Unknown [employer] Unknown [id number] 2.16.840.1.639786.3.579.2 .462 Unknown [id number] 2.16.840.1.711647.3.579.2 .462 Unknown [id number] 2.16.840.1.790747.3.579.2 .462 Unknown [id number] 2.16.840.1.932124.3.579.2 .462 Unknown [id number] 2.16.840.1.753407.3.579.2 .462 Unknown [id number] 2.16.840.1.548550.3.579.2 .462 Unknown [id number] 2.16.840.1.231299.3.579.2 .462 Unknown [id number] 2.16.840.1.619429.3.579.2 .462 Unknown [id number] 2.16.840.1.844381.3.579.2 .462 Social History Date Type Detail Facility Current every day smoker Current every day smoker [facility] Work Phone: Tobacco smoking status [facility] Tobacco smoking consumption unknown [facility] Work Phone: Start: 1980 Sex Assigned At Not on file [facility] Work Phone: Gender identity Not on file [facility] Work Phone: Start: 01-04-2025 End: 02-01-2025 Tobacco smoking status NHIS Ex-smoker (finding) [facility] Start: 1980 Sex Assigned At Female [facility] NEGATED: Highlighted row Not [facility] Goals Date Patient Goal Desired Activity /State Mental Status Date Assessment Result Facility 02-03-2025 Cognitive function Voice/Name [facility] Work Phone: Clinical Notes 01-27-2022 to 02-03-2025 Note Date & Type Note Facility 02-03-2025 Consult note Note Date/Time February 03, 2025 6:37a m [facility] Medical Records Department [address] [place] [address] Pre-Anesthesia Evaluation 02/03/25 0636 MR#: [id number] Acct: [id number] Name: MAYO HORTA Rep #:[id number] : 1980 44 From: Tobias Maurer MD PCP: Care Physician,No Primary Status :REG [facility] Y Race: C Location: [place] [address] ASA Classification* ASA Classification ASA Classification: 2 Assessment & Plan Anesthesia* Anesthesia Assessment Anesthesia Assessment: Discussed sedation and/or anesthesia options, risks, benefits, and alternatives with patient/parents/legal guardian/POA. Questions invited. The patient/parents/legal guardian/POA seems to understand and agrees to proceedwith anesthesia plan. Reviewed the physical assessment, medical history, allergy history and patient home medications list prior to surgery/procedure/anesthetic and documented any changes. Performed airway and anesthesia risk assessments. Anesthesia Type Anesthesia Type: MAC Anesthesia Focused Assessment* Airway Assessment Mouth opens: >3 cm Mallampati Score: II Focused Labs Anesthesia Preop lab: CBC WBC 12.3 K/mm3 (4.4-11.0) H 01/10/25 11:50 5 RBC 4.72 M/mm3 (4.2-5.4) 01/10/25 11:50 01/10/25 Hgb 15.0 g/dL (12.0-15.0) 01/10/25 11:50 01/10/25 Hct 44.1 % (37-47) 01/10/25 11:50 01/10/25 Plt Count 176 K/mm3 (150-450) 01/10/25 11:50 01/10/25 CHEMISTRY Potassium 4.3 mmol/L (3.3-5.1) 01/10/25 11:50 01/10/25 Sodium 139 mmol/L (133-145) 01/10/25 11:50 01/10/25 BUN 9 mg/dL (4-19) 01/10/25 11:50 01/10/25 Creatinine 0.92 mg/dL (0.70-1.20) 01/10/25 11:50 01/10/25 Glucose 95 mg/dL (70-99) 01/10/25 11:50 01/10/25 TSH 0.650 uIU/mL (0.300-4.200) 01/10/25 11:50 12/29 11/22 COAG Pre-Assessment Diagnosis/Proposed Procedure Planned Operative Procedure(s): COLONOSCOPY Anesthesia History 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 Hx Hospitalization No 02/01/25 14:11 Any Problems [...] take am of surgery PONV PONV - welding machine operator gas: PONV - welding machine operator gas Female Yes 02/01/25 14:11 HX of Motion Sickness Yes 02/01/25 14:11 HX of N/V After Surgery No 02/01/25 14:11 Non-Smoker Yes 02/01/25 14:11 Duration of Surgery greater No 02/01/25 14:11 than 60 minutes Number of Risk Factors 3 02/01/25 14:11 PONV Score Moderate Risk 02/01/25 14:11 Height & Weight Height & Weight: Anesthesia: Height & Weight Height 5 ft 1 in 01/11/25 08:42 Respiratory Assessment Respiratory Assessment - welding machine operator gas: Respiratory Tract Infection Hx - welding machine operator gas Hx Respiratory Tract Infection No 02/01/25 14:11 STOP Sleep Apnea STOP Sleep Apnea - welding machine operator gas: STOP Sleep Apnea - welding machine operator gas Hx Hypertension No 02/01/25 14:11 Hx Sleep [...] Tobacco Use History Tobacco Use History - welding machine operator gas: Tobacco Use History - welding machine operator gas Tobacco Use Smoking Status Former smoker 02/01/25 14:11 Hx Tobacco Use No 02/01/25 14:11 Years Smoking Packs Smoked per Day Smoking Cessation Date was Yes - quit smoking within 15 02/01/25 14:11 within the last 15 years years Hx Smoking Cessation Date Hx Smoking Cessation Counseling Hematologic Medial History Hematologic Hx - 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 Specify any problems Hx of Preganancy in last 3 No 02/01/25 14:11 Months Nurse Filling Out Transfusion VCHRISTIN 02/01/25 14:11 & Questions: Date: 02/01/25 02/01/25 14:11 Time: 14:12 02/01/25 14:11 Patient unable to answer at this time (ie. confused, unrespo /Reproduction History /Reproductive History - welding machine operator gas: /Reproductive Hx- welding machine operator gas Hx Now No 02/01/25 14:11 Gestational Age (in weeks): EDC: Hx Hx Para Hx Section SAB No 02/01/25 14:11 PFSH Medical History Wears contact lenses Wears glasses Post-menopausal Alcohol use Former smoker Cardiology follow-up encounter History of echocardiogram Hypertrophic cardiomyopathy H/O headache Home Medications ?Medication ?Instructions ?Recorded ?Last Taken ?Type omega-3 fatty acids 1,000 mg 1,000 mg PO QDAY 01/04/25 01/26/25 History capsule turmeric 400 mg capsule 400 mg PO DAILY 01/04/25 History vitamin D3 1,250 mcg (50,000 1 cap PO DAILY 01/04/25 0 01/26/25 History unit)-vitamin K2 200 mcg capsule Saccharomyces boulardii 250 mg 250 mg PO QDAY 01/11/25 Unknown History capsule (Daily Probiotic (S. boulardii)) multivitamin (Daily Multi-Vitamin 1 tab PO DAILY 02/01 Unknown History tablet) Allergy/AdvReac Type Severity Reaction Status Date / Time No Known Allergies Allergy Verified 02/01/25 14:02 Family History Mother Colon cancer Cancer of appendix, Onset Age: 57 Father Depression Hypertrophic cardiomyopathy Brother Hypertrophic cardiomyopathy Sister Hypertrophic cardiomyopathy Brother Hypertrophic cardiomyopathy Sister Hypertrophic cardiomyopathy Surgical History History of bunionectomy Hx of hysterectomy Social History Smoking Status: Former smoker alcohol intake: current alcohol intake frequency: holidays/special occasions only substance use type: does not use what type of physical activity do you participate in: running and weight training frequency: 3-4 times per week Review of Systems (Anesthesia) ROS Narrative System reviewed and no additional complaints, except as documented. 02/03/25636 <Electronically signed by Tobias Maurer MD > Date _ Tobias Maurer MD Cosigner Signature: Date CC: ~ Signed [facility] Work Phone: 1(187) 999-347606-06-2025 Consult note [facility] Medical Records Department [address] [place] [address] Anesthesia Postop Eval II 02/03/25822 MR#: [id number] Acct: [id number] Name: MAYO HORTA Rep #:[id number] : 1980 44 From: Tobias Maurer MD PCP: Care Physician,No Primary Status :REG SDC Y Race: C Location: [place] [address] Anesthesia Postop Eval I Sum Postop Eval Completion status Anesthesia document: Postop Eval 1 completed: Yes Anesthesia Postop Eval I Summary Anesthesia Postop Eval I Summary: Anesthesia Postop Eval I: Assessment Summary Airway patent Yes 02/03/25 07:57 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 Spontaneous unlabored Yes 02/03/25 07:57 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 respirations Mental status Awake 02/03/25 07:57 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 nausea No 02/03/25 07:57 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 Vomiting No 02/03/25 07:57 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 Anesthesia Postop Eval I: Fluid Summary Crystalloid volume administer 500 02/03/25 07:57 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 (ml) Colloids volume administered ( ml) Blood Product volume administered (ml) Total IV fluid infused 500 02/03/25 07:57 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 Anesthesia Postop Eval I: Summary Notes Anesthesia Complication No 02/03/25 07:57 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 Anesthesia Complication Comment: Post-operative progress note Anesthesia: Postop Eval II Evaluation Mental status: Awake Pain Level: 0 nausea: No Vomiting: No 02/03/25 0824 > Date _ Tobias Maurer MD Cosigner Signature: Date CC: ~ Signed [facility]06-06-2025 Procedure note [facility] Medical Records Department [address] [facility] [address] Colonoscopy Report MR#: [id number] Acct: [id number] Name: MAYO HORTA Rep #:[id number] : 1980 44 From: Jack Arredondo MD PCP: Care Physician,No Primary Status :REG SDC Patient Name: Mayo Horta Procedure Date: 02/03/2025 7:14 AM Date of : 1980 Age: 44 Procedure: Colonoscopy Indications: Screening in patient at increased risk: Family history of 1st-degree relative with colorectal cancer before age 60 years Providers: Jack Arredondo MD Referring MD: Jack Arredondo MD Medicines: Monitored Anesthesia Care Patient Profile: Refer to note in patient chart for documentation of history and physical. Last Colonoscopy: none. The patient's first colonoscopy is today. Complications: No immediate complications. Estimated blood loss: None. Procedure: Pre-Anesthesia Assessment: - Prior to the procedure, a History and Physical was performed, and patient medications and allergies were reviewed. The patient's tolerance of previous anesthesia was also reviewed. The risks and benefits of the procedure and the sedation options and risks were discussed with the patient. All questions were answered, and informed consent was obtained. Prior Anticoagulants: The patient has taken no anticoagulant or antiplatelet agents. ASA Grade Assessment: I - A normal, healthy patient. After reviewing the risks and benefits, the patient was deemed in satisfactory condition to undergo the procedure. After I obtained informed consent, the scope was passed under direct vision. Throughout the procedure, the patient's blood pressure, pulse, and oxygen saturations were monitored continuously. The colonoscope was introduced through the anus and advanced to the cecum, identified by appendiceal orifice and ileocecal valve. The ileocecal valve, appendiceal orifice, and rectum were photographed. The entire colon was well visualized. The colonoscopy was performed without difficulty. The patient tolerated the procedure well. The quality of the bowel preparation was good. Moderate Sedation: See the other procedure note for documentation of moderate sedation with intraservice time. Scope In: 7:32:24 AM Scope Withdrawal Time 0 hours 9 minutes 51 seconds Scope Out: 7:50:33 AM Total Procedure Duration Time 0 hours 18 minutes 9 seconds Findings: The perianal and digital rectal examinations were normal. Internal hemorrhoids were found during anoscopy. The hemorrhoids were mild. The exam was otherwise without abnormality on direct and retroflexion views. Impression: - Internal hemorrhoids. - The examination was otherwise normal on direct and retroflexion views. - No specimens collected. Recommendation: - Discharge patient to home (ambulatory). - High fiber diet. - Repeat colonoscopy in 5 years for screening purposes. - Return to my office PRN. - Continue present medications. Procedure Code(s): --- Professional --- 85927, Colonoscopy, flexible; diagnostic, including collection of specimen(s) by brushing or washing, when performed (separate procedure) Diagnosis Code(s): --- Professional --- K64.8, Other hemorrhoids Z80.0, Family history of malignant neoplasm of digestive organs CPT copyright 2021 [employer]. All rights reserved. The codes documented in this report are preliminary and upon supervisor mixing review may be revised to meet current compliance requirements. Jack Arredondo MD 02/03/2025 8:05:55 AM This report has been signed electronically. Number of Addenda: 0 Note Initiated On: 02/03/2025 7:14 AM 02/03/25805 Date _ Jack Arredondo MD Cosigner Signature: Date (if indicated) CC: Dr. Deborah Badillo MD; Dr. Jack Arredondo MD; No Primary Care Physician ~ Date Dictated: 02/03/2514 Date Transcribed: Postage Machine Operator: SW Signed [facility]06-06-2025 Procedure note [facility] Medical Records Department [address] [place] [address] Operative Report - CC Letter MR#: [id number] Acct: [id number] Name: MAYO HORTA Rep #:[id number] : 1980 44 From: Jack Arredondo MD PCP: Care Physician,No Primary Status :REG [facility] 02/03/2025 Deborah Badillo [address] [place] [address] Re : Colonoscopy procedure for Mayo Horta Dear Dr. Badillo This procedure was performed on Thursday, February 03, 2025. My impressions and recommendations are as follows: Impressions : - Internal hemorrhoids. - The examination was otherwise normal on direct and retroflexion views. - No specimens collected. Recommendations : - Discharge patient to home (ambulatory). - High fiber diet. - Repeat colonoscopy in 5 years for screening purposes. - Return to my office PRN. - Continue present medications. My findings are described in the full procedure note, which is enclosed. If I can be of further assistance, please feel free to contact me at . Sincerely, Jack Arredondo MD 02/03/2025 8:05:55 AM This report has been signed electronically. 02/03/25805 Date _ Jack Arredondo MD Cosigner Signature: Date (if indicated) CC: Dr. Deborah Badillo MD; Dr. Jack Arredondo MD; No Primary Care Physician ~ Date Dictated: 02/03/25713 Date Transcribed: Postage Machine Operator: GALINDO Polo [facility]06-06-2025 Consult note [facility] Medical Records Department [address] [place] [address] Anesthesia Postop Eval I 02/03/25 0757 MR#: [id number] Acct: [id number] Name: MAYO HORTA Rep #:[id number] : 1980 44 From: Raoul REYES PCP: Care Physician,No Primary Status :REG SDC Y Race: C Location: [place] [address] Anesthesia: Postop Eval I Current Vital Signs Temperature: 97.5 F Pulse Rate: 69 Blood Pressure: 110/75 Respiratory Rate: 16 Pulse Ox: 100 Oxygen Delivery Method: Room Air Assessment Airway patent: Yes Spontaneous unlabored respirations: Yes Mental status: Awake nausea: No Vomiting: No Anesthesia Complication: No Fluid Hydration Crystalloid volume administer (ml): 500 Total IV fluid infused: 500 Progress Note Anesthesia document: Postop Eval 1 completed: Yes 02/03/25 0757 AUTOMATIC SPINNING LATHE OPERATOR> Date _ Raoul Rogers AUTOMATIC SPINNING LATHE OPERATOR Cosigner Signature: Date CC: ~ Signed [facility]06-06-2025 History and physical note [facility] Medical Records Department [address] [place] [address] History & Physical Exam 02/03/25716 MR#: [id number] Acct: [id number] Name: MAYO HORTA Rep #:[id number] : 1980 44 From: Jack Arredondo MD PCP: Care Physician,No [facility] Status [facility] Location: [place] [address] HPI - General General Date of Admission: 02/03/25 Date of Service: 02/03/25 Chief Complaint: screening colonoscopy HPI Narrative The patient is a 44-year-old female who presents today for a colonoscopy. This will be her first colonoscopy. She does have a family history of appendiceal cancer. Her mom of appendiceal cancer in her 50s. Patient also has a family history of cardiomyopathy as well. She herself denies any significant GIissues or problems other than some occasional right upper quadrant pain that sheattributesto her gallbladder. [facility] Medical History Wears contact lenses Wears glasses Post-menopausal Alcohol use Former smoker Cardiology follow-up encounter History of echocardiogram Hypertrophic cardiomyopathy H/O headache Home Medications ?Medication ?Instructions ?Recorded ?Last Taken ?Type omega-3 fatty acids 1,000 mg 1,000 mg PO QDAY 01/04/25 01/26/25 History capsule turmeric 400 mg capsule 400 mg PO DAILY 01/04/25 History vitamin D3 1,250 mcg (50,000 1 cap PO DAILY 01/04/25 0 01/26/25 History unit)-vitamin K2 200 mcg capsule Saccharomyces boulardii 250 mg 250 mg PO QDAY 01/11/25 01/26/25 History capsule (Daily Probiotic (S. boulardii)) multivitamin (Daily Multi-Vitamin 1 tab PO DAILY 02/0101/27/25 History tablet) Allergy/AdvReac Type Severity Reaction Status Date / Time No Known Allergies Allergy Verified 02/03/25 06:52 Family History Mother Colon cancer Cancer of appendix, Onset Age: 57 Father Depression Hypertrophic cardiomyopathy Brother Hypertrophic cardiomyopathy Sister Hypertrophic cardiomyopathy Brother Hypertrophic cardiomyopathy Sister Hypertrophic cardiomyopathy Surgical History History of bunionectomy Hx of hysterectomy Social History Smoking Status: Former smoker alcohol intake: current alcohol intake frequency: holidays/special occasions only substance use type: does not use what type of physical activity do you participate in: running and weight training frequency: 3-4 times per week Vital Signs Vital Signs Vital Signs: 02/03/25 06:54 02/03/25 06:57 Temperature 98.4 F Temperature Source Temporal Pulse Rate 75 Respiratory Rate 16 Respiratory Pattern Normal Blood Pressure 120/84 H Blood Pressure Mean 96 Blood Pressure Source Monitor Blood Pressure Position Semi-Fowlers Blood Pressure Location Left Arm Pulse Ox 100 Oxygen Delivery Method Room Air Weight Weight: 143 lb 12.8 oz Body Mass Index (BMI) 27.1 Physical Exam Const alert, oriented x3 and no apparent distress Assessment & Plan Assessment/Plan (1) Encounter for screening for malignant neoplasm of colon: (2) Family history of colon cancer: PLAN: plan for colonoscopy today 02/03/25 0719 Cosigner Signature (if applicable): CC: Dr. Jack Arredondo MD; No Primary Care Physician~ Signed [facility]06-06-2025 [facility] Medical Records Department [address] [place] [address] History Physical Exam 02/03/25 0717 MR#: [id number] Acct: [id number] Name: MAYO HORTA Rep #: [id number] : 1980 44 From: Jack Arredondo MD PCP: Care Physician,No [facility] Status[facility] Location: [place] [address] HPI - General General Date of Admission: 02/03/25 Date of Service: 02/03/25 Chief Complaint: screening colonoscopy HPI Narrative The patient is a 44-year-old female who presents today for a colonoscopy. This will be her first colonoscopy. She does have a family history of appendiceal cancer. Her mom of appendiceal cancer in her 50s. Patient also has a family history of cardiomyopathy as well. She herself denies any significant GI issues or problems other than some occasional right upper quadrant pain that she attributes to her gallbladder. [facility] Medical History Wears contact lenses Wears glasses Post-menopausal Alcohol [...] 250 mg 250 mg PO QDAY 01/11/25 01/26/25 H istory capsule (Daily Probiotic (S. boulardii)) multivitamin (Daily Multi-Vitamin 1 tab PO DAILY 02/01/25 01/27/25 History tablet) Allergy/AdvReac Type Severity Reaction Status Date / Time No Known Allergies Allergy Verified 02/03/25 06:52 Family History Mother Colon cancer Cancer of appendix, Onset Age: 57 Father Depression Hypertrophic cardiomyopathy Brother Hypertrophic cardiomyopathy Sister Hypertrophic cardiomyopathy Brother Hypertrophic cardiomyopathy Sister Hypertrophic cardiomyopathy Surgical History History of bunionectomy Hx of hysterectomy Social History Smoking Status: Former smoker alcohol intake: current alcohol intake frequency: holidays/special occasions only substance use type: does not use what type of physical activity do you participate in: running and weight training frequency: 3-4 times per week Vital Signs Vital Signs Vital Signs: 02/03/25 06:54 02/03/25 06:57 Temperature 98.4 F Temperature Source Temporal Pulse Rate 75 Respiratory Rate 16 Respiratory Pattern Normal Blood Pressure 120/84 H Blood Pressure Mean 96 Blood Pressure Source Monitor Blood Pressure Position Semi-Fowlers Blood Pressure Location Left Arm Pulse Ox 100 Oxygen Delivery Method Room Air Weight Weight: 143 lb 12.8 oz Body Mass Index (BMI) 27.1 Physical Exam Const alert, oriented x3 and no apparent distress Assessment Plan Assessment/Plan (1) Encounter for screening for malignant neoplasm of colon: (2) Family history of colon cancer: PLAN: plan for colonoscopy today 02/03/25 0719 Cosigner Signature (if applicable): CC: Dr. Jack Arredondo MD; No Primary Care Physician [facility] Consult note [facility] Medical Records Department [address] [place] [address] Pre-Anesthesia Evaluation 02/03/25 0636 MR#: [id number] Acct: [id number] Name: MAYO HORTA Rep #:[id number] : 1980 44 From: Tobias Maurer MD PCP: Care Physician,No Primary Status :REG SDC Y Race: C Location: [place] [address] ASA Classification* ASA Classification ASA Classification: 2 Assessment & Plan Anesthesia* Anesthesia Assessment Anesthesia Assessment: Discussed sedation and/or anesthesia options, risks, benefits, and alternatives with patient/parents/legal guardian/POA. Questions invited. The patient/parents/legal guardian/POA seems to understand and agrees to proceedwith anesthesia plan. Reviewed the physical assessment, medical history, allergy history and patient home medications list prior to surgery/procedure/anesthetic and documented any changes. Performed airway and anesthesia risk assessments. Anesthesia Type Anesthesia Type: MAC Anesthesia Focused Assessment* Airway Assessment Mouth opens: >3 cm Mallampati Score: II Focused Labs Anesthesia Preop lab: CBC WBC 12.3 K/mm3 (4.4-11.0) H 01/10/25 11:50 5 RBC 4.72 M/mm3 (4.2-5.4) 01/10/25 11:50 01/10/25 Hgb 15.0 g/dL (12.0-15.0) 01/10/25 11:50 01/10/25 Hct 44.1 % (37-47) 01/10/25 11:50 01/10/25 Plt Count 176 K/mm3 (150-450) 01/10/25 11:50 01/10/25 CHEMISTRY Potassium 4.3 mmol/L (3.3-5.1) 01/10/25 11:50 01/10/25 Sodium 139 mmol/L (133-145) 01/10/25 11:50 01/10/25 BUN 9 mg/dL (4-19) 01/10/25 11:50 01/10/25 Creatinine 0.92 mg/dL (0.70-1.20) 01/10/25 11:50 01/10/25 Glucose 95 mg/dL (70-99) 01/10/25 11:50 01/10/25 TSH 0.650 uIU/mL (0.300-4.200) 01/10/25 11:50 12/29 11/22 COAG Pre-Assessment Diagnosis/Proposed Procedure Planned Operative Procedure(s): COLONOSCOPY Anesthesia History 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 Hx Hospitalization No 02/01/25 14:11 Any Problems [...] take am of surgery PONV PONV - welding machine operator gas: PONV - welding machine operator gas Female Yes 02/01/25 14:11 HX of Motion Sickness Yes 02/01/25 14:11 HX of N/V After Surgery No 02/01/25 14:11 Non-Smoker Yes 02/01/25 14:11 Duration of Surgery greater No 02/01/25 14:11 than 60 minutes Number of Risk Factors 3 02/01/25 14:11 PONV Score Moderate Risk 02/01/25 14:11 Height & Weight Height & Weight: Anesthesia: Height & Weight Height 5 ft 1 in 01/11/25 08:42 Respiratory Assessment Respiratory Assessment - welding machine operator gas: Respiratory Tract Infection Hx - welding machine operator gas Hx Respiratory Tract Infection No 02/01/25 14:11 STOP Sleep Apnea STOP Sleep Apnea - welding machine operator gas: STOP Sleep Apnea - welding machine operator gas Hx Hypertension No 02/01/25 14:11 Hx Sleep [...] than talking or can be heard through closeddoors)? 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 Specify any problems Hx of Preganancy in last 3 No 02/01/25 14:11 Months Nurse Filling Out Transfusion VCHRISTIN 02/01/25 14:11 & Questions: Date: 02/01/25 02/01/25 14:11 Time: 14:12 02/01/25 14:11 Patient unable to answer at this time (ie. confused, unrespo /Reproduction History /Reproductive History - welding machine operator gas: /Reproductive Hx- welding machine operator gas Hx Now No 02/01/25 14:11 Gestational Age (in weeks): EDC: Hx Hx Para Hx Section SAB No 02/01/25 14:11 [facility] Medical History Wears contact lenses Wears glasses Post-menopausal Alcohol use Former smoker Cardiology follow-up encounter History of echocardiogram Hypertrophic cardiomyopathy H/O headache Home Medications ?Medication ?Instructions ?Recorded ?Last Taken ?Type omega-3 fatty acids 1,000 mg 1,000 mg PO QDAY 01/04/25 01/26/25 History capsule turmeric 400 mg capsule 400 mg PO DAILY 01/04/25 History vitamin D3 1,250 mcg (50,000 1 cap PO DAILY 01/04/25 0 01/26/25 History unit)-vitamin K2 200 mcg capsule Saccharomyces boulardii 250 mg 250 mg PO QDAY 01/11/25 Unknown History capsule (Daily Probiotic (S. boulardii)) multivitamin (Daily Multi-Vitamin 1 tab PO DAILY 02/01 Unknown History tablet) Allergy/AdvReac Type Severity Reaction Status Date / Time No Known Allergies Allergy Verified 02/01/25 14:02 Family History Mother Colon cancer Cancer of appendix, Onset Age: 57 Father Depression Hypertrophic cardiomyopathy Brother Hypertrophic cardiomyopathy Sister Hypertrophic cardiomyopathy Brother Hypertrophic cardiomyopathy Sister Hypertrophic cardiomyopathy Surgical History History of bunionectomy Hx of hysterectomy Social History Smoking Status: Former smoker alcohol intake: current alcohol intake frequency: holidays/special occasions only substance use type: does not use what type of physical activity do you participate in: running and weight training frequency: 3-4 times per week Review of Systems (Anesthesia) ROS Narrative System reviewed and no additional complaints, except as documented. 02/03/25 0637 > Date _ Tobias Chisholm Signature: Date CC: ~ Signed [facility]05-14-2025 Hospital Discharge instructionsAmbulatory Orders* Colonoscopy Time Frame: 01/11/25, Location: Determined By Patient [facility] Work Phone: 1(922) 744-686105-12-2025 Evaluation note* Diagnosis Onset Date Resolution Status Admit Date Family history of colon cancer acute January 09, 2025 7:47am Encounter for routine gynecological examination noneactive January 092024 7:47am [facility] Work Phone: 1(673) 828-573505-12-2025 Evaluation note* Diagnosis Onset Date Resolution Status Admit Date Family history of colon cancer acute January 09, 2025 7:47am Encounter for routine gynecological examination noneactive January 092024 7:47am Encounter for screening for malignant neoplasm of colon acute January 11, 2025 8:24am Family history of colon cancer acute January 11, 2025 8:24am [facility] Work Phone: [phone]) 692-834805-12-2025 Evaluation note* Diagnosis Onset Date Resolution Status Admit Date Family history of colon cancer acute January 09, 2025 7:47am Encounter for routine gynecological examination noneactive January 092024 7:47am Encounter for screening for malignant neoplasm of colon acute January 11, 2025 8:24am Family history of colon cancer acute January 11, 2025 8:24am Encounter for screening for malignant neoplasm of colon acute February 03, 2025 6:31am Family history of colon cancer acute February 03, 2025 6:31am [facility] Work Phone: [phone] Evaluation note* Diagnosis Onset Date Resolution Status Admit Date Family history of colon cancer acute January 09, 2025 7:47am Encounter for routine gynecological examination noneactive May 12 th, 2025 7:47am Encounter for screening for malignant neoplasm of colon acute January 11, 2025 8:24am Family history of colon cancer acute January 11, 2025 8:24am Encounter for screening for malignant neoplasm of colon acute February 03, 2025 6:31am Family history of colon cancer acute February 03, 2025 6:31am Daytime hypersomnia acute February 08, 2025 8:04am [facility] Work Phone: 1([phone]) 558-690509-21-2023 History of Present illness Narrative* Syeda Yanna Tripp, HEAD OF BIOLOGY-BACK ROLLER - 05/21/2023 3:00 PM EDT Subjective Patient ID: Mayo Horta is a [...] causes hives First noticed hives in early 20's have worsened over the years No prior testing, boatswains mate, or medication Review of Systems Constitutional: Positive [...] depending on test result documented in this [facility] Work Phone: 1(908) 656-298405-30-2022 History of Present illness Narrative* Mayo is a 41 yo female her today to follow up on weight management. Mayo reports 7 lb weight lossover last month. She continue to follow low sugar, low calorie healthy diet. She is exercising 4-5 times a week. * She is frustrated with weight loss was hoping for more. Encouragement given. [facility] Work Phone: [phone]) 743-142905-30-2022 History of Present illness Narrative* Mayo is a 41 yo female her today to follow up on weight management. Mayo reports 7 lb weight lossover last month. She continue to follow low sugar, low calorie healthy diet. She is exercising 4-5 times a week. * She is frustrated with weight loss was hoping for more. Encouragement given. [facility] Work Phone: consult note Author Raoul Way [facility] Note Date/Time February 03, 2025 7:57a m [facility] Medical Records Department [address] [place] [address] Anesthesia Postop Eval I 02/03/25 0757 MR#: [id number] Acct: [id number] Name: MAYO HORTA Rep #:[id number] : 1980 44 From: Raoul ERYES PCP: Care Physician,No Primary Status :REG SDC Y Race: C Location: [place] [address] Anesthesia: Postop Eval I Current Vital Signs Temperature: 97.5 F Pulse Rate: 69 Blood Pressure: 110/75 Respiratory Rate: 16 Pulse Ox: 100 Oxygen Delivery Method: Room Air Assessment Airway patent: Yes Spontaneous unlabored respirations: Yes Mental status: Awake nausea: No Vomiting: No Anesthesia Complication: No Fluid Hydration Crystalloid volume administer (ml): 500 Total IV fluid infused: 500 Progress Note Anesthesia document: Postop Eval 1 completed: Yes 02/03/25 0757 <Electronically signed by Raoul Way AUTOMATIC SPINNING LATHE OPERATOR> Date _ Raoul Way AUTOMATIC SPINNING LATHE OPERATOR Cosigner Signature: Date CC: ~ Signed [facility] Work Phone: Consult note Author oTbias Maurer [facility] Note Date/Time February 03, 2025 8:24a m [facility] Medical Records Department [address] [place] [address] Anesthesia Postop Eval II 02/03/25822 MR#: [id number] Acct: [id number] Name: MAYO HORTA Rep #:[id number] : 1980 44 From: Tobias Maurer MD PCP: Care Physician,No Primary Status :REG [facility] [place] Race: C Location: [place] [address] Anesthesia Postop Eval I Sum Postop Eval Completion status Anesthesia document: Postop Eval 1 completed: Yes Anesthesia Postop Eval I Summary Anesthesia Postop Eval I Summary: Anesthesia Postop Eval I: Assessment Summary Airway patent Yes 02/03/25 07:57 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 Spontaneous unlabored Yes 02/03/25 07:57 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 respirations Mental status Awake 02/03/25 07:57 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 nausea No 02/03/25 07:57 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 Vomiting No 02/03/25 07:57 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 Anesthesia Postop Eval I: Fluid Summary Crystalloid volume administer 500 02/03/25 07:57 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 (ml) Colloids volume administered ( ml) Blood Product volume administered (ml) Total IV fluid infused 500 02/03/25 07:57 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 Anesthesia Postop Eval I: Summary Notes Anesthesia Complication No 02/03/25 07:57 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 Anesthesia Complication Comment: Post-operative progress note Anesthesia: Postop Eval II Evaluation Mental status: Awake Pain Level: 0 nausea: No Vomiting: No 02/03/25 0824 <Electronically signed by Tobias Maurer MD > Date _ Tobias Maurer MD Cosigner Signature: Date CC: ~ Signed [facility] Work Phone: Evaluation note* Diagnosis Loud snoring- Primary Daytime sleepiness Urticaria Unspecified urticaria documented in this encounter [facility] Work Phone: History and physical note Author Jack Arredondo [facility] Note Date/Time February 03, 2025 7:19a m [facility] Medical Records Department [address] [place] [address] History & Physical Exam 02/03/25 0717 MR#: [id number] Acct: [id number] Name: MAYO HORTA Rep #:[id number] : 1980 44 From: Jack Arredondo MD PCP: Care Physician,No Primary Status [facility] Location: [place] [address] HPI - General General Date of Admission: 02/03/25 Date of Service: 02/03/25 Chief Complaint: screening colonoscopy HPI Narrative The patient is a 44-year-old female who presents today for a colonoscopy. This will be her first colonoscopy. She does have a family history of appendiceal cancer. Her mom of appendiceal cancer in her 50s. Patient also has a family history of cardiomyopathy as well. She herself denies any significant GIissues or problems other than some occasional right upper quadrant pain that sheattributes to her gallbladder. [facility] Medical History Wears contact lenses Wears glasses Post-menopausal Alcohol use Former smoker Cardiology follow-up encounter History of echocardiogram Hypertrophic cardiomyopathy H/O headache Home Medications ?Medication ?Instructions ?Recorded ?Last Taken ?Type omega-3 fatty acids 1,000 mg 1,000 mg PO QDAY 01/04/25 01/26/25 History capsule turmeric 400 mg capsule 400 mg PO DAILY 01/04/25 History vitamin D3 1,250 mcg (50,000 1 cap PO DAILY 01/04/25 0 01/26/25 History unit)-vitamin K2 200 mcg capsule Saccharomyces boulardii 250 mg 250 mg PO QDAY 01/11/25 01/26/25 History capsule (Daily Probiotic (S. boulardii)) multivitamin (Daily Multi-Vitamin 1 tab PO DAILY 02/0101/27/25 History tablet) Allergy/AdvReac Type Severity Reaction Status Date / Time No Known Allergies Allergy Verified 02/03/25 06:52 Family History Mother Colon cancer Cancer of appendix, Onset Age: 57 Father Depression Hypertrophic cardiomyopathy Brother Hypertrophic cardiomyopathy Sister Hypertrophic cardiomyopathy Brother Hypertrophic cardiomyopathy Sister Hypertrophic cardiomyopathy Surgical History History of bunionectomy Hx of hysterectomy Social History Smoking Status: Former smoker alcohol intake: current alcohol intake frequency: holidays/special occasions only substance use type: does not use what type of physical activity do you participate in: running and weight training frequency: 3-4 times per week Vital Signs Vital Signs Vital Signs: 02/03/25 06:54 02/03/25 06:57 Temperature 98.4 F Temperature Source Temporal Pulse Rate 75 Respiratory Rate 16 Respiratory Pattern Normal Blood Pressure 120/84 H Blood Pressure Mean 96 Blood Pressure Source Monitor Blood Pressure Position Semi-Fowlers Blood Pressure Location Left Arm Pulse Ox 100 Oxygen Delivery Method Room Air Weight Weight: 143 lb 12.8 oz Body Mass Index (BMI) 27.1 Physical Exam Const alert, oriented x3 and no apparent distress Assessment & Plan Assessment/Plan (1) Encounter for screening for malignant neoplasm of colon: (2) Family history of colon cancer: PLAN: plan for colonoscopy today 02/03/25 0719 <Electronically signed by Jack Arredondo MD> Cosigner Signature (if applicable): CC: Dr. Jack Arredondo MD; No Primary Care Physician~ Signed [facility] Work Phone: History of Present illness Narrative* Mayo is a 41 yo female here [...] not seen OBGYN in over 2 years. * Does exercise daily and follow healthy diet. She has not had any changes in diet or activity however has gained 20 lb in 6 months, complains of chronically cold. She has bilateral hip pain from running on treadmill. [facility] Work Phone: History of Present illness Narrative* Mayo is a 41 yo female here [...] not seen OBGYN in over 2 years. * Does exercise daily and follow healthy diet. She has not had any changes in diet or activity however has gained 20 lb in 6 months, complains of chronically cold. She has bilateral hip pain from running on treadmill. She does report palpitations about twice a week and does consume caffeine daily. * She denies any recent illness, no recent hospitalizations. She is concerned with weight gain, checking on labs and echocardiogram to monitor her cardiomyopathy. -[facility] Work Phone: History of Present illness Narrative* I have personally reviewed the OAR[place] report for MAYO HORTA. I have considered the risks of abuse, dependence, addiction and diversion. * I have the following concerns: no OARRS report, no prior controlled substances prescribed. * Controlled Substance Agreement: * I have printed this form and reviewed each line item with the patient and the patient has verbalized understanding. * Date of the last Controlled Substance Agreement: 01/28/22 * [facility] * What is the patient s goal of therapy? BMI goal 25. * Is this being achieved with current treatment? initiating TX today. * Before starting treatment: I have assessed the patient s continuing efforts to lose weight, I have assessed the patient s dedication to the treatment program and the response to treatment and I have assessed the presence or absence of contraindications, adverse effects, and indicators of possible lozoya bstance abuse that would necessitate cessation of treatment utilizing controlled substance. * Mayo is a 41 yo female, her today for follow up. She is interested in weight loss assistance, She is engaged in an exercise program 3-5 times a week. and following a healthy diet. She is interested in starting on Adipex-P for additional weight loss. * Labs, EKG and Echo were in normal range. [employer] Work Phone: Summary Purpose Family History No [...] Unknown Advance Directives No Advanced Directives Records Found Advance Directive Response Recorded Date/ Time Do you have a Healthcare Power of Contract Officer? 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 7:47a m COLONOSCOPY January [...] of colon cancer January 11, 2025 8:24am Reason for Visit Admit Date Family history of colon cancer January 09, 2025 7:47am Encounter for routine gynecological exam ination January 09, 2025 7:47am Encounter for screening for malignant ne oplasm of colon January 11, 2025 8:24am Family history of colon cancer January 11, 2025 8:24am Encounter for screening for malignant ne oplasm of colon February 03, 2025 6:31am Family history of colon cancer February 03, 2025 6:31am Chief Complaint Admit Date 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, 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 7:47a m COLONOSCOPY January 11, 2025 8:24a m Sleep apnea February 08, 2025 8:04 am Reason for Visit Admit Date Family history of colon cancer January 09, 2025 7:47am Encounter for routine gynecological exam ination January 09, 2025 7:47am Encounter for screening for malignant ne oplasm of colon January 11, 2025 8:24am Family history of colon cancer January 11, 2025 8:24am Encounter for screening for malignant ne oplasm of colon February 03, 2025 6:31am Family history of colon cancer February 03, 2025 6:31am Daytime hypersomnia February 08, 2025 8:04 am Additional Source Comments INFORMATION SOURCE (unrecogn ized section and content) DATE CREATED AUTHOR 07/19/2018 [facility] DATE CREATED AUTHOR AUTHOR'S ORGANIZ ATION 03/30/2022 [facility] DATE CREATED AUTHOR AUTHOR'S ORGANIZ ATION 03/30/2022 [employer] DATE CREATED AUTHOR AUTHOR'S ORGANIZ ATION 05/25/2023 [facility] DATE CREATED AUTHOR AUTHOR'S ORGANIZ ATION 05/25/2023 [facility] DATE CREATED AUTHOR AUTHOR'S ORGANIZ ATION 06/01/2023 [facility] DATE CREATED AUTHOR AUTHOR'S ORGANIZ ATION 02/28/2025 [facility] Reason for Visit (unrecogniz ed section and content) Reason Comments Fatigue Care Teams (unrecognized sec tion and content) 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, [facility] [address] [place] [id number] PCP - General 12/31/21 Syeda Tripp, HEAD OF BIOLOGY-BACK ROLLER [address] [facility], [place] [address] [place] [address] PCP - Bishop MANNO PCP 05/01/22 Team [...] January 10, 2025 End: January 10, 2025 Team Status: Active Member Role Status Dates No Primary Care Physician Primary Care Provider Active Team Status: Inactive Member Role Status Dates Dr. Jack Arredondo MD Attending Provider Active Start: February 03, 2025 End: February 03, 2025 Dr. Jack Arredondo MD Referring Provider Active Start: February 03, 2025 End: February 03, 2025 No Primary Care Physician Primary Care Provider Active Start: February 03, 2025 End: February 03, 2025 Team Status: Active Member Role Status Dates Dr. Jack Arredondo MD Attending Provider Active Start: February 03, 2025 Dr. Jack Arredondo MD Referring Provider Active Start: February 03, 2025 Dr. Jack Arredondo MD Other Provider Active St art: February 03, 2025 No Primary Care Physician Primary Care Provider Active Start: February 03, 2025 Team Status: Inactive Member Role Status Dates Carmen Alvarenga NP, SERVICE WORKER-C Attending Provider Active Start: February 08, 2025 End: February 08, 2025 No Primary Care Physician Primary Care Provider Active Start: February 08, 2025 End: February 08, 2025 No Primary Care Physician Referring Provider Active Start: February 08, 2025 End: February 08, 2025 Goals (unrecognized section and content) Goals [...] BE BASED ON THE PRIMARY CLINICAL RECORDS. [employer] provides no warranty or guarantee of the accuracy or completeness of information in this document.
--- OUTSIDE RECORDS SUMMARY | 2025-03-01 07:27 | XMS RPT_ITS | CCD ---
Author Organization [facility] Providers Care Physician/Internist Name Role Phone DIAZ, THAN Unavailable Unavailable ORIN, HEIDI Unavailable Unavailable DIAZ, THAN Unavailable Unavailable ORIN, HEIDI Unavailable Unavailable ORIN, HEIDI Unavailable Unavailable Josee, Syeda L Unavailable Unavailable Unavailable Josee ARCHEOLOGIST-CHIEF TECHNICIAN X RAY, Syeda L Primary Care Provider [place] ARCHEOLOGIST-CHIEF TECHNICIAN X RAY, Syeda L Unavailable [phone] JOSEE, SYEDA L Primary Care Unavailable JOSEE, SYEDA L Primary Care Unavailable JOSEE, SYEDA L Attending Unavailable JOSEE, SYEDA L Primary Care Unavailable JOSEE, SYEDA L Primary Care Unavailable JOSEE, SYEDA L Referring Unavailable JOSEE, SYEDA L Attending Unavailable JOSEE, SYEDA L Primary Care Unavailable JOSEE, SYEDA L Referring Unavailable Aby STERLING, Dr. Cabrera Attending Provider Dr. Deborah Badillo MD Referring Provider Dr. Jack Arredondo MD Attending Provider Dr. Jack Arredondo MD Referring Provider Care Physician, No Primary Primary Care Provider Unavailable Dr. Jack Arredondo MD Other Provider Carmen Rod Attending Provider Care Physician, No [...] Attending Unavailable Deborah Badillo Referring Unavailable Deborah Baidllo Referring Unavailable Deborah Badillo Attending Unavailable Allergies Allergy Classification Reported Allergen(s) Allergy Type Date of Onset Reaction(s) Facility (2 sources) ALLERGIES NOT ON FILE; Translations: [ALLERGIES NOT ON FILE] Propensity to adverse reactions (disorder) [facility] Medications Current Medications Medication Drug Class(es) [...] {tbl} PO DAILY February 01, 2025 12:00am Eaton-3 Fatty Acids 1,000 mg capsule (5 sources) Start: 01-04-2025 take 1 capsule by mouth once daily Eaton-3 Fatty Acids 1,000 mg capsule Active 1000 [...] Facility Pulmonary Visit Reporton Pulmonary Visit Report [facility] Pulmonary Medicine [address] [place] [address] OFFICE VISIT Date of Service: 02/08/25 MR#: [id number] Acct: [id number] Name: IRVINMAYO LANDEROS Rep #: [id number] : 1980 Provider: MARYSE Alvarenga Age/Sex: 44/F Location: [facility].PMW Status: Signed Assessment and Plan Assessment and [...] Additional Comments: This note was generated with [employer] dictation software. It may contain incorrect words, [...] dry mouth. 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 She is a current smoker. She is currently only smoking a few cigarettes per week. Mostly social. Up into about 2 to 3 years ago she was smoking 1/2 pack/day. She smoked routinely for about 15 years. She has never seen a patrol driver and has never been prescribed an inhaler. [...] 148 lb (more content not included)... [facility] Colonoscopy Reporton 025 Colonoscopy Report [facility] Medical Records Department [address] [place] [address] Colonoscopy Report MR#: [id number] Acct: [id number] Name: MAYO HORTA Rep #: [id number] : 1980 44 From: Jack Arredondo MD PCP: Care Physician,No Primary Status:[facility] Patient Name: Mayo Horta Procedure Date: [...] present medications. Procedure Code(s): --- Professional --- 53082, Colonoscopy, flexible; diagnostic, including collection of specimen(s) by brushing or washing, when performed (separate procedure) Diagnosis Code(s): --- Professional --- K64.8, Other hemorrhoids Z80.0, Family history of malignant neoplasm of digestive organs CPT copyright 2021 [employer]. All rights reserved. The codes documented in this report are preliminary and upon manager parking review may be revised to meet current compliance requirements. Jack Arredondo MD 02/03/2025 8:05:55 AM This report has been signed electronically. Number of Addenda: 0 Note Initiated On: 02/03/2025 7:14 AM 02/03/25805 Date Jack Arredondo MD Cosigner Signature: Date (if indicated) CC: Dr. Deborah Badillo MD; Dr. Jack Arredondo MD; No Primary Care Physician Date Dictated: 02/03/25713 Date Transcribed: Car Dryer: GALINDO Polo [facility] MR/POSTOP.[facility] 02-03-2025 MR/POSTOP.[facility] Medical Records Department [address] [place] [address] Anesthesia Postop Eval I 02/03/25756 MR#: [id number] Acct: [id number] Name: MAYO HORTA Rep #: [id number] : 1980 44 From: Raoul Way CRNA PCP: Care Physician,No [place] [place] [place] Race[place] C Location: [place] [address] Anesthesia: Postop Eval I Current Vital Signs [...] 1 completed: Yes 02/03/[address] PAPER INSPECTOR Cosigner Signature: Date CC: Signed [facility] MR/[id number] 02-03-2025 MR/POSTOPAN2 [facility] Medical Records Department [address] [place] [address] Anesthesia Postop Eval II 02/03/25822 MR#: [id number] Acct: [id number] Name: MAYO HORTA Rep #: [id number] : 1980 44 From: Tobias Maurer MD PCP: Care Physician,No Primary [place] [place] Race: C Location: [place] [address] Anesthesia Postop Eval I Sum Postop Eval Completion status Anesthesia document: Postop Eval 1 completed: Yes Anesthesia Postop Eval I Summary Anesthesia Postop Eval I Summary: Anesthesia Postop Eval I: Assessment Summary Airway patent Yes 02/03/25 07:57 PAPER INSPECTOR.SOBR Spontaneous unlabored Yes 02/03/25 07:57 PAPER INSPECTOR.SOBR respirations Mental status Awake 02/03/25 07:57 PAPER INSPECTOR.SOBR nausea No 02/03/25 07:57 PAPER INSPECTOR.SOBR Vomiting No 02/03/25 07:57 PAPER INSPECTOR.SOBR Anesthesia Postop Eval I: Fluid Summary Crystalloid volume administer 500 02/03/25 07:57 PAPER INSPECTOR.SOBR (ml) Colloids volume administered ( ml) Blood Product volume administered (ml) Total IV fluid infused 500 02/03/25 07:57 PAPER INSPECTOR.SOBR Anesthesia Postop Eval I: Summary Notes Anesthesia Complication No 02/03/25 07:57 PAPER INSPECTOR.SOBR Anesthesia Complication Comment: Post-operative progress note Anesthesia: Postop Eval II Evaluation Mental status: Awake Pain Level: 0 nausea: No Vomiting: No 02/03/25 0824 Date Tobias Chisholm Signature: Date CC: Signed [facility] MR/PATShin 02-02-2025 MR/PAT.[facility] Medical Records Department [address] [place] [address] PAT - Anesthesia 02/02/25 1547 MR#: [id number] Acct: [id number] Name: MAYO HORTA Rep #: [id number] : 1980 44 From: Juan Luis Bullock MD PCP: Dr. Deboarh Badillo MD [place] [place]: C Location: [place] Pre-Assessment Diagnosis/Proposed Procedure Planned Operative Procedure(s): COLONOSCOPY Anesthesia History 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: 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 Hx Hospitalization No 02/01/25 14:11 Any Problems [...] take am of surgery PONV PONV - supervisor inspection department: PONV - supervisor inspection department Female Yes 02/01/25 14:11 HX of Motion [...] 01/11/25 08:42 Respiratory Assessment Respiratory Assessment - supervisor inspection department: Respiratory Tract Infection Hx - supervisor inspection department Hx Respiratory Tract Infection No 02/01/25 14:11 STOP Sleep Apnea STOP Sleep Apnea - supervisor inspection department: STOP Sleep Apnea - supervisor inspection department Hx Hypertension No 02/01/25 14:11 Hx Sleep [...] Tobacco Use History Tobacco Use History - supervisor inspection department: Tobacco Use History - supervisor inspection department Tobacco Use Smoking Status Former smoker 02/01/25 14:11 Hx Tobacco Use No 02/01/25 14:11 Years Smoking Packs Smoked per Day Smoking Cessation Date was Yes - quit smoking within 15 02/01/25 14:11 within the last 15 years years Hx Smoking Cessation Date Hx Smoking Cessation Counseling Hematologic Medial History Hematologic Hx - supervisor inspection department: Hematologic Medical Hx - clinical documentation consultant Hx of Blood Transfusion No 02/01/25 14:11 [...] confused, unrespo /Reproduction History /Reproductive History - supervisor inspection department: /Reproductive Hx- supervisor inspection department Hx Now No 02/01/25 14:11 Gestational Age [...] 02/01/25 14:02 (more content not included)... [facility] PAP I-G w/rfx hrHPV-Aptimaon 01-11-2025 ADEQ Comment [facility] Comment on above: Order Comment: Spec men Comment: [id number] Specimen Comment: No. of containers..01 ThinPrep Vial Result Comment: Sati sfactory for evaluation. No endocervical cells are present. This is consistent with a history of hysterectomy. Performed By: #### L 7400.0353 #### [facility] [address] [place], [address] COMM . [facility] Comment on above: [facility] [id number] Specimen Comment: No. of containers..01 ThinPrep Vial Performed By: #### L 7400.0353 #### [facility] [address] [place], [place], [id number] COMMENT Comment [facility] Comment on above: [facility]: [id number] Specimen Comment: No. of containers..01 ThinPrep Vial Result Comment: This liquid based ThinPrep(R) pap test was screened with the use of an image guided system. Performed By: #### L 7400.0353 #### [facility] [address] [place], [place], [address] DIAG Comment [facility] Comment on above: Order Comment: Speci men Comment: [id number] Specimen Comment: No. of containers..01 ThinPrep Vial Result Comment: NEGA TIVE FOR INTRAEPITHELIAL LESION OR MALIGNANCY. Performed By: #### L 7400.0353 #### [facility] [address] [place], [address] HPV RFLX Comment [facility] Comment on above: Order Comment: Speci men Comment: [id number] Specimen Comment: No. of containers..01 ThinPrep Vial Result Comment: The HPV DNA reflex criteria were not met with this specimen result therefore, no HPV testing was performed. Performed at: [address] [id number] Supervisor Public Health Nursing: Amy Ball MD, Phone: [phone] Performed By: #### L 7400.0353 #### [facility] [address] [place], [place], [address] PAPSMR Comment [facility] Comment on above: Order Comment: Speci men Comment: [id number] Specimen Comment: No. of containers..01 ThinPrep Vial Result Comment: The Pap smear is a screening test designed to aid in the detection of premalignant and malignant conditions of the uterine cervix. It is not a diagnostic procedure and should not be used as the sole means of detecting cervical cancer. Both false-positive and false-negative reports do occur. Performed By: #### L 7400.0353 #### [facility] [address] [place], [place], [address] PERFORM Comment [facility] Comment on above: Order Comment: Speci men Comment: [id number] Specimen Comment: No. of containers..01 ThinPrep Vial Result Comment: Samara Pratt, Plastics Factory Worker (ASCP) Performed By: #### L 7400.0353 #### [facility] [address] [place], [address] Surgery Visit Reporton 01-11 Surgery Visit Report [facility] [address] [place] [address] OFFICE VISIT Date of Service: 01/11/25 MR#: [id number] Acct: [id number] Name: MAYO HORTA Rep #: [id number] : 1980 Provider: Dr. Jack gunter MD Age/Sex: 44/F Location: [facility] Status: Signed Intake Vital Signs 01/09/25 [...] pl anned (more content not included)... [facility] Absolute lymphocyte countOrd ered By: Deborah Badillo on 01-10-2025 Lymphocytes Auto (Unsp spec) [#/Vol] 3.72 10*3/uL 0.83-4.51 [facility] Absolute neutrophil countOrd ered By: Deborah Badillo on 01-10-2025 Neutrophils (Bld) [#/Vol] 7.6 10*3/uL 2.0-7.7 [facility] Anion gap in Serum or Plasma Ordered By: Deborah Badillo on 01-10-2025 Anion gap [Moles/Vol] 12 mmol/L 5-15 [facility] Automated lymphocyte count a s percentage of total leukocytesOrdered By: Deborah Badillo on 01-10-2025 Lymphocytes/100 WBC Auto (Unsp spec) 30.3 % -41 [facility] BUN/creatinine ratioOrdered By: Deborah Badillo on 01-10-2025 Urea nitrogen/Creatinine [Mass ratio] 10.2 mg/mg 10-20 [facility] Basophil percentageOrdered B y: Deborah Badillo on 01-10-2025 Basophils/100 WBC (Bld) 1.1 % High 0-1 [facility] Bilirubin, totalOrdered By: Deborah Badillo on 01-10-2025 Bilirubin [Mass/Vol] 0.45 mg/dL 0.00-1.30 [facility] CBC W/Diff, Automatedon 12-29 Absolute Lymph 3.72 X10 3/uL Normal 0.83-4.51 [facility] Comment on above: Performed By: #### L 500.4100, L506.1001, L501.9985, L501.9520, L100.0100, L500.4050 #### [facility] [address] [place], [address] Absolute Neut 7.6 X10 3/uL Normal 2.0-7.7 [facility] Comment on above: Performed By: #### L 500.4100, L506.1001, L501.9985, L501.9520, L100.0100, L500.4050 #### [facility] [address] [place], [address] Basophils/100 WBC (Bld) 1.1 % High 0-1 [facility] Comment on above: Performed By: #### L 500.4100, L506.1001, L501.9985, L501.9520, L100.0100, L500.4050 #### [facility] [address] [place], [address] Eosinophils/100 WBC (Bld) 1.9 % Normal 0-5 [facility] Comment on above: Performed By: #### L 500.4100, L506.1001, L501.9985, L501.9520, L100.0100, L500.4050 #### [facility] [address] [place], [address] Erythrocyte distribution width (RBC) [Ratio] 13.5 % Normal 11.6-14.6 [facility] Comment on above: Performed By: #### L 500.4100, L506.1001, L501.9985, L501.9520, L100.0100, L500.4050 #### [facility] [address] [place], [address] Hematocrit (Bld) [Volume fraction] 44.1 % Normal 37-47 [facility] Comment on above: Performed By: #### L 500.4100, L506.1001, L501.9985, L501.9520, L100.0100, L500.4050 #### [facility] [address] [place], [address] Hemoglobin (Bld) [Mass/Vol] 15.0 g/dL Normal 12.0-15.0 [facility] Comment on above: Performed By: #### L 500.4100, L506.1001, L501.9985, L501.9520, L100.0100, L500.4050 #### [facility] [address] [place], [address] IG% 0.300 Normal 0.0-0.9 [facility] Comment on above: Result Comment: IG% - Immature Granulocytes (promyelocytes, myelocytes and metamyelocytes) > 1% indicates that a LEFT SHIFT is Present. Performed By: #### L 500.4100, L506.1001, L501.9985, L501.9520, L100.0100, L500.4050 #### [facility] [address] [place], [address] Lymphocytes/100 WBC (Bld) 30.3 % Normal 19-41 [facility] Comment on above: Performed By: #### L 500.4100, L506.1001, L501.9985, L501.9520, L100.0100, L500.4050 #### [facility] [address] [place], [address] MCH (RBC) [Entitic mass] 31.8 pg Normal 27.0-32.0 [facility] Comment on above: Performed By: #### L 500.4100, L506.1001, L501.9985, L501.9520, L100.0100, L500.4050 #### [facility] [address] [place], [address] MCHC (RBC) [Mass/Vol] 34.0 g/dL Normal 32-36 [facility] Comment on above: Performed By: #### L 500.4100, L506.1001, L501.9985, L501.9520, L100.0100, L500.4050 #### [facility] [address] [place], [address] MCV (RBC) [Entitic vol] 93.4 fL Normal 81-99 [facility] Comment on above: Performed By: #### L 500.4100, L506.1001, L501.9985, L501.9520, L100.0100, L500.4050 #### [facility] [address] [place], [address] Monocytes/100 WBC (Bld) 5.0 % Normal 0-10 [facility] Comment on above: Performed By: #### L 500.4100, L506.1001, L501.9985, L501.9520, L100.0100, L500.4050 #### [facility] [address] [place], [address] Neutrophils/100 WBC (Bld) 61.4 % Normal 47-70 [facility] Comment on above: Performed By: #### L 500.4100, L506.1001, L501.9985, L501.9520, L100.0100, L500.4050 #### [facility] [address] [place], [address] Nucleated RBC (Bld) [#/Vol] 0 10*3/uL Normal 0-5 [facility] Comment on above: Performed By: #### L 500.4100, L506.1001, L501.9985, L501.9520, L100.0100, L500.4050 #### [facility] [address] [place], [address] Platelet mean volume (Bld) [Entitic vol] 12.1 fL High 6.2-12.0 [facility] Comment on above: Performed By: #### L 500.4100, L506.1001, L501.9985, L501.9520, L100.0100, L500.4050 #### [facility] [address] [place], [address] Platelets (Bld) [#/Vol] 176 10*3/uL Normal 150-450 [facility] Comment on above: Performed By: #### L 500.4100, L506.1001, L501.9985, L501.9520, L100.0100, L500.4050 #### [facility] [address] [place], [address] RBC (Bld) [#/Vol] 4.72 10*6/uL Normal 4.2-5.4 [facility] Comment on above: Performed By: #### L 500.4100, L506.1001, L501.9985, L501.9520, L100.0100, L500.4050 #### [facility] [address] [place], [address] RDW SD 46.4 fl High 35.1-43.9 [facility] Comment on above: Performed By: #### L 500.4100, L506.1001, L501.9985, L501.9520, L100.0100, L500.4050 #### [facility] [address] [place], [address] WBC (Bld) [#/Vol] 12.3 10*3/uL High 4.4-11.0 [facility] Comment on above: Performed By: #### L 500.4100, L506.1001, L501.9985, L501.9520, L100.0100, L500.4050 #### [facility] [address] [place], [address] Calculated very low density lipoprotein (VLDL) cholesterol measurementOrdered By: Deborah Badillo on 01-10-2025 Calculated very low density lipoprotein (VLDL) cholesterol measurement 14 mg/dL 5-40 [facility] Carbon dioxide, total [Moles /volume] in Central venous bloodOrdered By: Deborah Badillo on 01-10-2025 CO2 [Moles/Vol] 24.6 mmol/L 21.0-32.0 [facility] Chloride assayOrdered By: Crispin Badillo on 01-10-2025 Chloride [Moles/Vol] 102 mmol/L 98-108 [facility] Comprehensive Metabolic Prof ilon 01-10-2025 Albumin [Mass/Vol] 4.7 g/dL Normal 3.5-5.0 [facility] Comment on above: Performed By: #### L 500.4100, L506.1001, L501.9985, L501.9520, L100.0100, L500.4050 #### [facility] [address] [place], [address] Albumin/Globulin [Mass ratio] 1.9 {ratio} Normal 0.9-2.4 [facility] Comment on above: Performed By: #### L 500.4100, L506.1001, L501.9985, L501.9520, L100.0100, L500.4050 #### [facility] [address] [place], [address] ALK PHOS 49 U/L Normal 35-104 [facility] Comment on above: Performed By: #### L 500.4100, L506.1001, L501.9985, L501.9520, L100.0100, L500.4050 #### [facility] [address] [place], [address] ALT [Catalytic activity/Vol] 14 U/L Normal <=34 [facility] Comment on above: Performed By: #### L 500.4100, L506.1001, L501.9985, L501.9520, L100.0100, L500.4050 #### [facility] [address] [place], [address] AST [Catalytic activity/Vol] 18 U/L Normal <=31 [facility] Comment on above: Performed By: #### L 500.4100, L506.1001, L501.9985, L501.9520, L100.0100, L500.4050 #### [facility] [address] [place], [address] Bilirubin [Mass/Vol] 0.45 mg/dL Normal 0.00-1.30 [facility] Comment on above: Performed By: #### L 500.4100, L506.1001, L501.9985, L501.9520, L100.0100, L500.4050 #### [facility] [address] [place], [address] BUN/CRE 10.2 RATIO Normal 10-20 [facility] Comment on above: Performed By: #### L 500.4100, L506.1001, L501.9985, L501.9520, L100.0100, L500.4050 #### [facility] [address] [place], [address] Calcium [Mass/Vol] 9.7 mg/dL Normal 7.6-11.0 [facility] Comment on above: Performed By: #### L 500.4100, L506.1001, L501.9985, L501.9520, L100.0100, L500.4050 #### [facility] [address] [place], [address] Chloride [Moles/Vol] 102 mmol/L Normal 98-108 [facility] Comment on above: Performed By: #### L 500.4100, L506.1001, L501.9985, L501.9520, L100.0100, L500.4050 #### [facility] [address] [place], [address] CO2 [Moles/Vol] 24.6 mmol/L Normal 21.0-32.0 [facility] Comment on above: Performed By: #### L 500.4100, L506.1001, L501.9985, L501.9520, L100.0100, L500.4050 #### [facility] [address] [place], [address] Creatinine [Mass/Vol] 0.92 mg/dL Normal 0.70-1.20 [facility] Comment on above: Performed By: #### L 500.4100, L506.1001, L501.9985, L501.9520, L100.0100, L500.4050 #### [facility] [address] [place], [address] GAP 12 Normal 5-15 [facility] Comment on above: Performed By: #### L 500.4100, L506.1001, L501.9985, L501.9520, L100.0100, L500.4050 #### [facility] [address] [place], [address] GFR/1.73 sq M.predicted among non-blacks MDRD (S/P/Bld) [Vol rate/Area] 78 mL/min/{1.73_m2} Normal >60 [facility] Comment on above: Result Comment: mL/m in/1.73m2 CKD-EPI Creatinine Equation (2020) Performed By: #### L 500.4100, L506.1001, L501.9985, L501.9520, L100.0100, L500.4050 #### [facility] [address] [place], [address] Globulin (S) [Mass/Vol] 2.5 g/dL Normal 2.2-4.2 [facility] Comment on above: Performed By: #### L 500.4100, L506.1001, L501.9985, L501.9520, L100.0100, L500.4050 #### [facility] [address] [place], [address] Glucose [Mass/Vol] 95 mg/dL Normal 70-99 [facility] Comment on above: Performed By: #### L 500.4100, L506.1001, L501.9985, L501.9520, L100.0100, L500.4050 #### [facility] [address] [place], [address] Potassium [Moles/Vol] 4.3 mmol/L Normal 3.3-5.1 [facility] Comment on above: Performed By: #### L 500.4100, L506.1001, L501.9985, L501.9520, L100.0100, L500.4050 #### [facility] [address] [place], [address] Sodium [Moles/Vol] 139 mmol/L Normal 133-145 [facility] Comment on above: Performed By: #### L 500.4100, L506.1001, L501.9985, L501.9520, L100.0100, L500.4050 #### [facility] [address] [place], [address] T PROT 7.2 g/dL Normal 5.9-8.4 [facility] Comment on above: Performed By: #### L 500.4100, L506.1001, L501.9985, L501.9520, L100.0100, L500.4050 #### [facility] [address] [place], [address] Urea nitrogen [Mass/Vol] 9 mg/dL Normal 4-19 [facility] Comment on above: Performed By: #### L 500.4100, L506.1001, L501.9985, L501.9520, L100.0100, L500.4050 #### [facility] [address] [place], [address] Eosinophil percentageOrdered By: Deborah Badillo on 01-10-2025 Eosinophils/100 WBC (Bld) 1.9 % 0-5 [facility] Erythrocyte distribution wid th ratioOrdered By: Deborah Badillo on 01-10-2025 Erythrocyte distribution width (RBC) [Ratio] 13.5 % 11.6-14.6 [facility] Erythrocyte distribution wid th standard deviationOrdered By: Deborah Badillo on 01-10-2025 Erythrocyte distribution width (RBC) [Ratio] 46.4 fl High 35.1-43.9 [facility] Glomerular filtration rate ( GFR) estimation/1.73 sq m using serum, plasma, or whole bOrdered By: Deborah Badillo on 01-10-2025 GFR/1.73 sq M.predicted among non-blacks MDRD (S/P/Bld) [Vol rate/Area] 78 mL/min/{1.73_m2} >60 [facility] Comment on above: mL/min/1.73m2 CKD-EP I Creatinine Equation (2020) Hematocrit Auto (Bld) [Volum e fraction]Ordered By: Deborah Badillo on 01-10-2025 Hematocrit (Bld) [Volume fraction] 44.1 % 37-47 [facility] Hemoglobin A1con 01-10-2025 HbA1c (Bld) [Mass fraction] 5.4 % Normal <=5.6 [facility] Comment on above: Result Comment: Norm al < 5.7 % Prediabetic 5.7 - 6.4 % Diabetic >or= 6.5 % Please note range changes. Performed By: #### L 500.4100, L506.1001, L501.9985, L501.9520, L100.0100, L500.4050 #### [facility] [address] [place], [address] Hemoglobin A1c percentageOrd ered By: Deborah Badillo on 01-10-2025 HbA1c (Bld) [Mass fraction] 5.4 % <5.7 [facility] Comment on above: Normal < 5.7 % Predi abetic 5.7 - 6.4 % Diabetic >or= 6.5 % Please note range changes. Hemoglobin measurementOrdere d By: Deborah Badillo on 01-10-2025 Hemoglobin (Bld) [Mass/Vol] 15.0 g/dL 12.0-15.0 [facility] Immature granulocytes/100 WB C Auto (Bld)Ordered By: Deborah Badillo on 01-10-2025 Immature granulocytes/100 WBC (Bld) 0.300 % 0.0-0.9 [facility] Comment on above: IG% - Immature Granu locytes (promyelocytes, myelocytes and metamyelocytes) > 1% indicates that a LEFT SHIFT is Present. LDL calc ser/plasOrdered By: Deborah Badillo on 01-10-2025 Cholesterol in LDL [Mass/Vol] 116 mg/dL [facility] Comment on above: Ogkkjfeyoy=759-539 m g/dL & Higher Fgty=841 mg/dL or greater Laboratory - Chemistry and C hemistry - challengeOrdered By: Deborah Badillo on 01-10-2025 AST [Catalytic activity/Vol] 18 U/L <32 [facility] Lipid Profileon 01-10-2025 CHOL:HDL 3.76 Normal [facility] Comment on above: Performed By: #### L 500.4100, L506.1001, L501.9985, L501.9520, L100.0100, L500.4050 #### [facility] [address], [address] Cholesterol [Mass/Vol] 177 mg/dL Normal <=200 [facility] Comment on above: Result Comment: Chol esterol level, Desirable <200 mg/dL Borderline high cholesterol 200-239 mg/dL High cholesterol >=240 mg/dL Recommendations of the NCEP Adult Treatment Panel for the following risk-cutoff thresholds for the [place] population. Performed By: #### L 500.4100, L506.1001, L501.9985, L501.9520, L100.0100, L500.4050 #### [facility] [address] [place], [address] Cholesterol in HDL [Mass/Vol] 47 mg/dL Normal [facility] Comment on above: Result Comment: Sugar onal Cholesterol Education Program (NCEP) guidelines: <40 mg/dL: Low HDL-cholesterol (major risk factor for CHD) >= 60 mg/dL: High HDL-cholesterol (negative risk factor for CHD) HDL-cholesterol is affected by a number of factors, e.g. smoking, exercise, hormones, sex and age. Performed By: #### L 500.4100, L506.1001, L501.9985, L501.9520, L100.0100, L500.4050 #### [facility] [address] [place], [address] Cholesterol in LDL [Mass/Vol] 116 mg/dL Normal [facility] Comment on above: Result Comment: Bord rkcikr=227-181 mg/dL Higher Ctar=125 mg/dL or greater Performed By: #### L 500.4100, L506.1001, L501.9985, L501.9520, L100.0100, L500.4050 #### [facility] [address] [place], [address] Cholesterol in VLDL [Mass/Vol] 14 mg/dL Normal 5-40 [facility] Comment on above: Performed By: #### L 500.4100, L506.1001, L501.9985, L501.9520, L100.0100, L500.4050 #### [facility] [address] [place], [address] Triglyceride [Mass/Vol] 68 mg/dL Normal [facility] Comment on above: Result Comment: The drugs N-Acetylcysteine and Metamizole may falsely depress this assay. Normal range: <150 mg/dL Borderline High: 150-199 mg/dL High: 200-499 mg/dL Very High: >500 mg/dL Performed By: #### L 500.4100, L506.1001, L501.9985, L501.9520, L100.0100, L500.4050 #### [facility] [address] [place], [address] MCV (mean corpuscular volume ) determinationOrdered By: Deborah Badillo on 01-10-2025 MCV (RBC) [Entitic vol] 93.4 fL 81-99 [facility] Mean corpuscular hemoglobin (MCH) determinationOrdered By: Deborah Badillo on 01-10-2025 MCH (RBC) [Entitic mass] 31.8 pg 27.0-32.0 [facility] Mean corpuscular hemoglobin concentration (MCHC) determinationOrdered By: Deborah Badillo on 01-10-2025 MCHC (RBC) [Mass/Vol] 34.0 g/dL 32-36 [facility] Mean platelet volume determi nationOrdered By: Deborah Badillo on 01-10-2025 Platelet mean volume (Bld) [Entitic vol] 12.1 fL High 6.2-12.0 [facility] Monocyte percentageOrdered B y: Deborah Badillo on 01-10-2025 Monocytes/100 WBC (Bld) 5.0 % 0-10 [facility] Neutrophil percentageOrdered By: Deborah Badillo on 01-10-2025 Neutrophils/100 WBC (Bld) 61.4 % 47-70 [facility] Nucleated red blood cell per centageOrdered By: Deborah Badillo on 01-10-2025 Nucleated RBC/100 WBC (Bld) [Ratio] 0 % 0-5 [facility] Platelet countOrdered By: Crispin Badillo on 01-10-2025 Platelets (Bld) [#/Vol] 176 10*3/uL 150-450 [facility] Potassium measurement (mass/ volume)Ordered By: Deborah Badillo on 01-10-2025 Potassium (Unsp spec) [Mass/Vol] 4.3 mmol/L 3.3-5.1 [facility] RBC Auto (Bld) [#/Vol]Ordere d By: Deborah Badillo on 01-10-2025 RBC (Bld) [#/Vol] 4.72 10*6/uL 4.2-5.4 [facility] Screening total cholesterol/ high density lipoprotein (HDL) cholesterol ratioOrdered By: Deborah Badillo on 01-10-2025 Cholesterol.total/Chol esterol in HDL [Mass ratio] 3.76 {ratio} [facility] Serum creatinine measurement (mass/volume)Ordered By: Deborah Badillo on 01-10-2025 Creatinine [Mass/Vol] 0.92 mg/dL 0.70-1.20 [facility] Serum globulin measurementOr dered By: Deborah Badillo on 01-10-2025 Globulin (S) [Mass/Vol] 2.5 g/dL 2.2-4.2 [facility] Serum glucose measurement (m ass/volume)Ordered By: Deborah Badillo on 01-10-2025 Glucose [Mass/Vol] 95 mg/dL 70-99 [facility] Serum or plasma alanine diaz otransferase (ALT) measurementOrdered By: Deborah Badillo on 01-10-2025 ALT [Catalytic activity/Vol] 14 U/L <35 [facility] Serum or plasma albumin chris urement (mass/volume)Ordered By: Deborah Badillo on 01-10-2025 Albumin [Mass/Vol] 4.7 g/dL 3.5-5.0 [facility] Serum or plasma albumin/glob ulin mass ratioOrdered By: Deborah Badillo on 01-10-2025 Albumin/Globulin [Mass ratio] 1.9 {ratio} 0.9-2.4 [facility] Serum or plasma alkaline reyna sphatase measurementOrdered By: Deborah Badillo on 01-10-2025 ALP [Catalytic activity/Vol] 49 U/L 35-104 [facility] Serum or plasma calcium chris urement (mass/volume)Ordered By: Deborah Badillo on 01-10-2025 Calcium [Mass/Vol] 9.7 mg/dL 7.6-11.0 [facility] Serum or plasma cholesterol in HDL measurement (mass/volume)Ordered By: Deborah Badillo on 01-10-2025 Cholesterol in HDL [Mass/Vol] 47 mg/dL >40 [facility] Comment on above: National Cholesterol Education Program (NCEP) guidelines:<40 mg/dL: Low HDL-cholesterol (major risk factor for CHD)>= 60 mg/dL: High HDL-cholesterol (negative risk factor for CHD)HDL-cholesterol is affected by a number of factors, e.g. smoking, exercise, hormones, sex and age. Serum or plasma cholesterol measurement (mass/volume)Ordered By: Deborah Badillo on 01-10-2025 Cholesterol [Mass/Vol] 177 mg/dL <201 [facility] Comment on above: Cholesterol level, D esirable <200 mg/dLBorderline high cholesterol 200-239 mg/dLHigh cholesterol >=240 mg/dLRecommendations of the NCEP Adult Treatment Panel for the following risk-cutoff thresholds for the [place] population. Serum or plasma urea nitroge n measurement (mass/volume)Ordered By: Deborah Badillo on 01-10-2025 Urea nitrogen [Mass/Vol] 9 mg/dL 4-19 [facility] Sodium levelOrdered By: Catrachito Badillo on 01-10-2025 Sodium [Moles/Vol] 139 mmol/L 133-145 [facility] TSH DL <= 0.005 mIU/L QnOrde red By: Deborah Badillo on 01-10-2025 TSH Qn 0.650 uIU/mL 0.300-4.200 [facility] Thyroid Stim Hormone (TSH)on 01-10-2025 TSH 0.650 uIU/mL Normal 0.300-4.200 [facility] Comment on above: Performed By: #### L 500.4100, L506.1001, L501.9985, L501.9520, L100.0100, L500.4050 #### [facility] [address] [place], [place], [address] Total proteinOrdered By: Jaxson Badillo on 01-10-2025 Protein [Mass/Vol] 7.2 g/dL 5.9-8.4 [facility] Triglycerides measurementOrd ered By: Deborah Badillo on 01-10-2025 Triglyceride [Mass/Vol] 68 mg/dL <199 [facility] Comment on above: The drugs N-Acetylcy steine and Metamizole may falsely depress this assay. Normal range: <150 mg/dLBorderline High: 150-199 mg/dLHigh: 200-499 mg/dLVery High: >500 mg/dL Vitamin D,25 Hydroxyon 01-10 Vitamin D 25-OH 75.6 ng/mL Normal 30-100 [facility] Comment on above: Result Comment: Kamla min D Status Deficiency: <20 ng/mL (50nmol/L) Insufficiency: 20-30 ng/mL (50-75 nmol/L) Sufficiency: 30-100 ng/mL (75-250 nmol/L) Toxicity: >100 ng/mL (>250 nmol/L) Performed By: #### L 500.4100, L506.1001, L501.9985, L501.9520, L100.0100, L500.4050 #### [facility] [address] [place], [address] White blood cell (WBC) count Ordered By: Deborah Badillo on 01-10-2025 WBC (Bld) [#/Vol] 12.3 10*3/uL High 4.4-11.0 [facility] Cervical or vagninal specime n microscopic examination by cytology stain (reported asOrdered By: Deborah Badillo on 01-09-2025 Cytology report Cyto stain Doc (Cvx/Vag) Comment . [facility] Comment on above: The Pap smear is a s creening test designed to aid in thedetection of premalignant and malignant conditions of theuterine cervix. It is not a diagnostic procedure andshould not be used as the sole means of detecting cervicalcancer. Both false-positive and false-negative reports dooccur. 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 [facility] Comment on above: Samara Pratt, Cytolog ist (ASCP) Laboratory - Miscellaneous t estsOrdered By: Deborah Badillo on 01-09-2025 Service comment (Unsp spec) [Interp] . . [facility] No Panel InformationOrdered By: Deborah Badillo on 01-09-2025 Pap Smear Specimen Adequacy Comment . [facility] Comment on above: Satisfactory for dahlia luation. No endocervical cells are present. This isconsistent with a history of hysterectomy. [employer] Office Visit Reporton 01-09-2025 [employer] Office Visit Report [facility] [address], [address] [place] [address] OFFICE VISIT Date of Service: 01/09/25 MR#: [id number] Acct: [id number] Name: MAYO HORTA Rep #: [id number] : 1980 Provider: Dr. 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 Normal [facility] VITAMIN D 1,25-DIHYDROXYon 0 05-22-2023 VITAMIN D 1,25-DIHYDROXY 51.1 pg/mL Normal 19.9-79.3 [facility] Comment on above: Result Comment: INTE RPRETIVE INFORMATION: Vitamin D, 1,25-Dihydroxy This test is primarily indicated during patient evaluation for hypercalcemia and renal failure. A normal result does not rule out Vitamin D deficiency. The recommended test for diagnosing Vitamin D deficiency is Vitamin D 25-hydroxy. Performed By: [facility] [address] [place] [address] Special Makeup Fx Artist Instructor: Juan Talamantes MD, PhD CLIA Number: [id number] Performed By: #### V TDDI #### [facility] [address] [place] [address] CORTISOL,UNSPECIFIEDon 05-21 CORTISOL,UNSPECIFIED 5.3 ug/dL Normal 2.5 - 20.0 [facility] Comment on above: Performed By: #### C ORUN #### [facility] [address] [place] [address] CBC AND DIFFERENTIALon 05-20 % AUTOMATED IMMATURE GRAN 0.2 % Normal 0.0 - 0.9 [facility] Comment on above: Result Comment: Brianda ture Granulocyte Count (IG) includes promyelocytes, myelocytes and metamyelocytes but does not include bands. Percent differential counts (%) should be interpreted in the context of the absolute cell counts (cells/L). Performed By: #### C BCDF #### [facility] [address] [address] Basophils (Bld) [#/Vol] 0.11 10*3/uL High 0.00 - 0.10 [facility] Comment on above: Performed By: #### C BCDF #### [address] [address] Basophils/100 WBC (Bld) 1.3 % Normal 0.0 - 2.0 [facility] Comment on above: Performed By: #### C BCDF #### [address] [address] Eosinophils (Bld) [#/Vol] 0.14 10*3/uL Normal 0.00 - 0.70 [facility] Comment on above: Performed By: #### C BCDF #### [address] [address] Eosinophils/100 WBC (Bld) 1.7 % Normal 0.0 - 6.0 [facility] Comment on above: Performed By: #### C BCDF #### [address] [address] Erythrocyte distribution width (RBC) [Ratio] 13.5 % Normal 11.5 - 14.5 [facility] Comment on above: Performed By: #### C BCDF #### [address] [address] Hematocrit (Bld) [Volume fraction] 44.0 % Normal 36.0 - 46.0 [facility] Comment on above: Performed By: #### C BCDF #### [address] [address] Hemoglobin (Bld) [Mass/Vol] 14.1 g/dL Normal 12.0 - 16.0 [facility] Comment on above: Performed By: #### C BCDF #### [address] [address] Lymphocytes (Bld) [#/Vol] 2.75 10*3/uL Normal 1.20 - 4.80 [facility] Comment on above: Performed By: #### C BCDF #### [address] [address] Lymphocytes/100 WBC (Bld) 33.0 % Normal 13.0 - 44.0 [facility] Comment on above: Performed By: #### C BCDF #### [address] [address] MCHC (RBC) [Mass/Vol] 32.0 g/dL Normal 32.0 - 36.0 [facility] Comment on above: Performed By: #### C BCDF #### [address] [address] MCV (RBC) [Entitic vol] 97 fL Normal 80 - 100 [facility] Comment on above: Performed By: #### C BCDF #### [address] [address] Monocytes (Bld) [#/Vol] 0.44 10*3/uL Normal 0.10 - 1.00 [facility] Comment on above: Performed By: #### C BCDF #### [address] [address] Monocytes/100 WBC (Bld) 5.3 % Normal 2.0 - 10.0 [facility] Comment on above: Performed By: #### C BCDF #### [address] [address] Neutrophils (Bld) [#/Vol] 4.88 10*3/uL Normal 1.20 - 7.70 [facility] Comment on above: Result Comment: Perc ent differential counts (%) should be interpreted in the context of the absolute cell counts (cells/L). Performed By: #### C BCDF #### [address] [address] Neutrophils/100 WBC (Bld) 58.5 % Normal 40.0 - 80.0 [facility] Comment on above: Performed By: #### C BCDF #### [address] [address] Platelets (Bld) [#/Vol] 133 10*3/uL Low 150 - 450 [facility] Comment on above: Performed By: #### C BCDF #### [address] [address] RBC 4.53 x10E12/L Normal 4.00 - 5.20 [facility] Comment on above: Performed By: #### C BCDF #### [address] [address] WBC (Bld) [#/Vol] 8.3 10*3/uL Normal 4.4 - 11.3 [facility] Comment on above: Performed By: #### C BCDF #### [address] [address] COMPREHENSIVE PANELon 05-20- 2022 Albumin [Mass/Vol] 4.5 g/dL Normal 3.4 - 5.0 [facility] Comment on above: Performed By: #### C MP #### [address] [address] ALP [Catalytic activity/Vol] 37 U/L Normal 33 - 110 [facility] Comment on above: Performed By: #### C MP #### [address] [address] ALT [Catalytic activity/Vol] 10 U/L Normal 7 - 45 [facility] Comment on above: Result Comment: Lisa ents treated with Sulfasalazine may generate falsely decreased results for ALT. Performed By: #### C MP #### [address] [address] Anion gap [Moles/Vol] 10 mmol/L Normal 10 - 20 [facility] Comment on above: Performed By: #### C MP #### [address] [address] AST [Catalytic activity/Vol] 14 U/L Normal 9 - 39 [facility] Comment on above: Performed By: #### C MP #### [address] [address] Bilirubin [Mass/Vol] 0.5 mg/dL Normal 0.0 - 1.2 [facility] Comment on above: Performed By: #### C MP #### [address] [address] Calcium [Mass/Vol] 9.3 mg/dL Normal 8.6 - 10.3 [facility] Comment on above: Performed By: #### C MP #### [address] [address] Chloride [Moles/Vol] 104 mmol/L Normal 98 - 107 [facility] Comment on above: Performed By: #### C MP #### [address] [address] Creatinine [Mass/Vol] 0.92 mg/dL Normal 0.50 - 1.05 [facility] Comment on above: Performed By: #### C MP #### [address] [address] GFR/1.73 sq M.predicted among non-blacks MDRD (S/P/Bld) [Vol rate/Area] 79 mL/min/{1.73_m2} Normal >90 [facility] Comment on above: Result Comment: CALC ULATIONS OF ESTIMATED GFR ARE PERFORMED USING THE 2020 CKD-EPI STUDY REFIT EQUATION WITHOUT THE RACE VARIABLE FOR THE IDMS-TRACEABLE CREATININE METHODS. https://jasn.asnjournals.org/content//ASN.62141 [address] Performed By: #### C MP #### [address] [address] Glucose [Mass/Vol] 80 mg/dL Normal 74 - 99 [facility] Comment on above: Performed By: #### C MP #### [address] [address] HCO3 (Bld) [Moles/Vol] 27 mmol/L Normal 21 - 32 [facility] Comment on above: Performed By: #### C MP #### [address] [address] Potassium [Moles/Vol] 4.2 mmol/L Normal 3.5 - 5.3 [facility] Comment on above: Performed By: #### C MP #### [address] [address] Protein [Mass/Vol] 6.5 g/dL Normal 6.4 - 8.2 [facility] Comment on above: Performed By: #### C MP #### [address] [address] Sodium [Moles/Vol] 137 mmol/L Normal 136 - 145 [facility] Comment on above: Performed By: #### C MP #### [address] [address] Urea nitrogen [Mass/Vol] 9 mg/dL Normal 6 - 23 [facility] Comment on above: Performed By: #### C MP #### [address] [address] CORTISOL,UNSPECIFIEDon 05-20 Lab Specimen Source Normal [facility] Comment on above: Performed By: #### C ORUN #### [facility] [address] [place] [address] Performed By: #### V TB12 #### [address] [address] Performed By: #### C MP #### [address] [address] Performed By: #### C BCDF #### [address] [address] Performed By: #### Tahir TDDI #### [facility] [address] [place] [address] VITAMIN B12on 05-20-2023 Cobalamin (Vitamin B12) [Mass/Vol] 688 pg/mL Normal 211 - 911 [facility] Comment on above: Performed By: #### V TB12 #### [address] [address] CBCon 11-21-2022 Erythrocyte distribution width (RBC) [Ratio] 13.3 % Normal 11.5 - 14.5 [facility] Comment on above: Performed By: #### C BC #### [address] [address] Hematocrit (Bld) [Volume fraction] 46.1 % High 36.0 - 46.0 [facility] Comment on above: Performed By: #### C BC #### [address] [address] Hemoglobin (Bld) [Mass/Vol] 15.0 g/dL Normal 12.0 - 16.0 [facility] Comment on above: Performed By: #### C BC #### [address] [address] MCHC (RBC) [Mass/Vol] 32.5 g/dL Normal 32.0 - 36.0 [facility] Comment on above: Performed By: #### C BC #### [address] [address] MCV (RBC) [Entitic vol] 95 fL Normal 80 - 100 [facility] Comment on above: Performed By: #### C BC #### [address] [address] Platelets (Bld) [#/Vol] 193 10*3/uL Normal 150 - 450 [facility] Comment on above: Performed By: #### C BC #### [place] [address] RBC 4.84 x10E12/L Normal 4.00 - 5.20 [facility] Comment on above: Performed By: #### C BC #### [address] [address] WBC (Bld) [#/Vol] 10.5 10*3/uL Normal 4.4 - 11.3 [facility] Comment on above: Performed By: #### C BC #### [address] [address] VITAMIN B12on 11-21-2022 Cobalamin (Vitamin B12) [Mass/Vol] 233 pg/mL Normal 211 - 911 [facility] Comment on above: Performed By: #### V TB12 #### [address] [address] Lab Specimen Source Normal [facility] Comment on above: Performed By: #### V TB12 #### [address] [address] Performed By: #### C BC #### [address] [address] Performed By: #### V TDOH #### [address] [address] VITAMIN D, 25-HYDROXYon 10-30 VITAMIN D, 25-HYDROXY 33 ng/mL Normal [facility] Comment on above: Result Comment: . DEFICIENCY: < 20 NG/ML INSUFFICIENCY: 20-29 NG/ML SUFFICIENCY: 30-100 NG/ML THIS ASSAY ACCURATELY QUANTIFIES THE SUM OF VITAMIN D3, 25-HYDROXY AND VIT D2,25-HYDROXY. Performed By: #### V TDOH #### [address] [address] Radiologyon 04-16-2022 XR Hand 3 Views Normal [facility] Work Phone: Office Visit ([facility])on 03-27-2022 Follow-up visit Diagnoses/Problems Anxiety (300.00) (F41.9) Encounter for weight management (V65.49) (Z76.89) BMI 27.0-27.9,adult (V85.23) (Z68.27) Orders Anxiety Start: buPROPion HCl ER (SR) 150 MG Oral Tablet Extended Release 12 Hour; Take 1 tablet daily Anxiety, Encounter for weight management Follow-up visit in 1 month Outpatient Follow-up Status: Hold For - Scheduling Requested for: [id number] BMI 27.0-27.9,adult, Weight gain Renew: Phentermine HCl [...] consuming 800-1100 calories daily recommend she consume 8889-7316 calories daily. She is willing to start [...] gain Multi-Vitamins TABS Vitals Vital Signs Recorded: [id number] 08:03AM Igrpnvpmwij38.1 F Heart Zafb288 Dwesgkjy433 Dyuubnwlk40 Height5 ft 2 in Yphsfq323 lb 6 oz BMI Rzsajtiaah06.14 kg/m2 BSA Calculated1.68 Tobacco Usea) Yes Patient [...] Mar 27 2022 9:20AM EST (Author) Normal [place] Tobacco Screening.on 022 Tobacco use status [facility] a) Yes [employer] [facility] Work Phone: Tobacco Screening. Yes [employer] [facility] Work Phone: [facility] Follow-up visit Diagnoses/Problems Weight gain [...] Weight management: Continue with lifestyle changes including 0532-7387 calorie diet, low sugar, low fat. Increase [...] Vital Signs Recorded: 27Feb2022 01:20PM Heart Rate68 Vfzmatnp701 Zcwlstjgb25 Height5 ft 2 in Rhgjre133 lb 7 oz BMI Ifwbtzibco53.33 kg/m2 BSA Calculated1.69 Tobacco Usea) Yes Patient [...] [employer] Tobacco Screening.on 022 Tobacco use status [facility] a) Yes [employer] Work Phone: Tobacco Screening. Yes [employer] Work Phone: Heart Rateon 01-28-2022 Adult depression screening assessment No [employer] Work Phone: Heart Rate Regular [employer] Work Phone: Tobacco use status [facility] a) Yes [employer] Work Phone: Heart Rate Yes [employer] Work Phone: Office Visit ([facility])on 01-28-2022 Follow-up visit Diagnoses/Problems Weight gain (783.1) [...] insight: Intact. Mood and affect: Normal. Results/Data [id number] 09:02Syeda Marshall Test NameResultFlagReference Echocardiogram(Report) [id number] [address] [place] [address] ext-2528, TRANSTHORACIC ECHOCARDIOGRAM REPORT Patient Name: MAYO Frederick IRVIN Reading Physician: [id number] Sebastian Adams MD Study Date: 01/22/2022 Referring [id number] SYEDA TRIPP Physician: MRN/PID: [id number] PCP: Accession/Order#: [id number] Department [facility] Echo Lab Location: Date of : 1980 Fellow: Gender: F Nurse: Admit Date: Supervisory Forester: Kyle Blanco [facility] Admission Status: Outpatient Additional Staff: Height: 157.48 cm CC Report to: Weight: 68.04 kg Study Type: Echocardiogram BSA: 1.69 m2 Blood Pressure: 120 /83 mmHg Diagnosis/ICD: I42.2-Other hypertrophic cardiomyopathy Indication: Procedure/CPT: Echo Complete w Full [id number] Study Detail: The (more content not included)... Normal [place] Electrocardiogram 12 Leadon 05-25-2022 Electrocardiogram 12 Lead Ventricular Rate 68 Atrial Rate 68 P-R Interval 146 QRS Duration 80 Q-T Interval 408 QTC Calculation(Bazett) 433 P Harrison 27 R Harrison 120 T Harrison 43 QRS Count 11 Q Onset 223 P Onset 150 P Offset 194 T Offset 427 QTC Fredericia 425 Diagnosis Class Abnormal Diagnosis Normal sinus rhythm Abnormal ECG No previous ECGs available Confirmed by Sebastian Adams ([id number]) on 01/22/2022 10:44:43 AM Normal [facility] No Panel Informationon 01-22 [email or web address] ?CgqludeND=[id number]&Date =22-01-2022&Time=08%3a40% 3a43%3a00&TestType=ECG&Si te=14&OutputType=PDF&Ext= PDF -[facility] Practice Work Phone: [phone] Normal sinus rhythm [facility] Work Phone: Abnormal -[facility] Work Phone: [phone] -[facility] Work Phone: [phone] -[facility] Work Phone: [phone] -[facility] Work Phone: [phone] -[facility] Work Phone: [phone] -[facility] Work Phone: [phone] -[facility] Work Phone: [phone] -[facility] Work Phone: [phone] 1 -[facility] Work Phone: [phone] 1 -[facility] Work Phone: [phone] 1 -[facility] Work Phone: [phone] [facility] Work Phone: 80 1 -[facility] Work Phone: [phone] 1 [facility] Work Phone: [phone] 1 [facility] Work Phone: BASIC METABOLIC PANELon 05-0 Anion gap [Moles/Vol] 11 mmol/L Normal 10 - 20 [facility] Comment on above: Performed By: #### B MP #### [address] [address] Calcium [Mass/Vol] 9.4 mg/dL Normal 8.6 - 10.3 [facility] Comment on above: Performed By: #### B MP #### [address] [address] Chloride [Moles/Vol] 104 mmol/L Normal 98 - 107 [facility] Comment on above: Performed By: #### B MP #### [address] [address] Creatinine [Mass/Vol] 0.80 mg/dL Normal 0.50 - 1.05 [facility] Comment on above: Performed By: #### B MP #### [address] [address] eGFR FEMALE >90 Normal >90 [facility] Comment on above: Result Comment: CALC ULATIONS OF ESTIMATED GFR ARE PERFORMED USING THE 2020 CKD-EPI STUDY REFIT EQUATION WITHOUT THE RACE VARIABLE FOR THE IDMS-TRACEABLE CREATININE METHODS. https://jasn.asnjournals.org/content/early//ASN.81113 09405 Performed By: #### B MP #### [address] [address] Glucose [Mass/Vol] 88 mg/dL Normal 74 - 99 [facility] Comment on above: Performed By: #### B MP #### [address] [address] HCO3 (Bld) [Moles/Vol] 27 mmol/L Normal 21 - 32 [facility] Comment on above: Performed By: #### B MP #### [address] [address] Potassium [Moles/Vol] 4.4 mmol/L Normal 3.5 - 5.3 [facility] Comment on above: Performed By: #### B MP #### [address] [address] Sodium [Moles/Vol] 138 mmol/L Normal 136 - 145 [facility] Comment on above: Performed By: #### B MP #### [address] [address] Urea nitrogen [Mass/Vol] 10 mg/dL Normal 6 - 23 [facility] Comment on above: Performed By: #### B MP #### [address] [address] CBCon 12-31-2021 Erythrocyte distribution width (RBC) [Ratio] 13.8 % Normal 11.5 - 14.5 [facility] Comment on above: Performed By: #### C BC #### [address] [address] Hematocrit (Bld) [Volume fraction] 43.3 % Normal 36.0 - 46.0 [facility] Comment on above: Performed By: #### C BC #### [address] [address] Hemoglobin (Bld) [Mass/Vol] 14.7 g/dL Normal 12.0 - 16.0 [facility] Comment on above: Performed By: #### C BC #### [address] [address] MCHC (RBC) [Mass/Vol] 34.0 g/dL Normal 32.0 - 36.0 [facility] Comment on above: Performed By: #### C BC #### [address] [address] MCV (RBC) [Entitic vol] 92 fL Normal 80 - 100 [facility] Comment on above: Performed By: #### C BC #### [address] [address] Platelets (Bld) [#/Vol] 187 10*3/uL Normal 150 - 450 [facility] Comment on above: Performed By: #### C BC #### [address] [address] RBC 4.69 x10E12/L Normal 4.00 - 5.20 [facility] Comment on above: Performed By: #### C BC #### [address] [address] WBC (Bld) [#/Vol] 11.6 10*3/uL High 4.4 - 11.3 [facility] Comment on above: Performed By: #### C BC #### [address] [address] LIPID PANEL (CORONARY RISK 2 )on 12-31-2021 Cholesterol [Mass/Vol] 170 mg/dL Normal 0 - 199 [facility] Comment on above: Result Comment: . AGE [...] dosing. Performed By: #### L IPID #### [address] [address] Cholesterol in HDL [Mass/Vol] 50.0 mg/dL Normal [facility] Comment on above: Result Comment: . AGE VERY LOW LOW NORMAL HIGH 0-19 Y < 35 < 40 40-45 ---- 20-24 Y ---- < 40 >45 ---- >24 Y ---- < 40 40-60 >60 . Performed By: #### L IPID #### [address] [address] Cholesterol in LDL [Mass/Vol] 102 mg/dL High 0 - 99 [facility] Comment on above: Result Comment: . NEAR BORD AGE DESIRABLE OPTIMAL HIGH HIGH VERY HIGH 0-19 Y 0 - 109 --- 110-129 >/= 130 ---- 20-24 Y 0 - 119 --- 120-159 >/= 160 ---- >24 Y 0 - 99 100-129 130-159 160-189 >/=190 . Performed By: #### L IPID #### [address] [address] Cholesterol in VLDL [Mass/Vol] 18 mg/dL Normal 0 - 40 [facility] Comment on above: Performed By: #### L IPID #### [address] [address] Cholesterol.total/Chol esterol in HDL [Mass ratio] 3.4 {ratio} Normal [facility] Comment on above: Result Comment: REF VALUES DESIRABLE < 3.4 HIGH RISK > 5.0 Performed By: #### L IPID #### [address] [address] Triglyceride [Mass/Vol] 89 mg/dL Normal 0 - 149 [facility] Comment on above: Result Comment: . AGE [...] dosing. Performed By: #### L IPID #### [address] [address] Laboratory - Chemistry and C hemistry - challengeon 12-31-2021 Anion gap [Moles/Vol] 11 mmol/L 10 - 20 [facility] Work Phone: Calcium [Mass/Vol] 9.4 mg/dL 8.6 - 10.3 [facility] Work Phone: Chloride [Moles/Vol] 104 mmol/L 98 - 107 -[facility] Work Phone: CO2 [Moles/Vol] 27 mmol/L 21 - 32 [facility] Work Phone: Creatinine [Mass/Vol] 0.80 mg/dL See Below [facility] Work Phone: Comment on above: Reference Range: 0.5 0 - 1.05 Glucose [Mass/Vol] 88 mg/dL 74 - 99 [facility] Work Phone: Potassium [Moles/Vol] 4.4 mmol/L 3.5 - 5.3 [facility] Work Phone: Sodium [Moles/Vol] 138 mmol/L 136 - 145 [facility] Work Phone: TSH Qn 0.90 m[IU]/L See Below [facility] Work Phone: Comment on above: Reference Range: 0.4 4 - 3.98 TSH testing is performed using different testing methodology at [facility] than at other [facility]. Direct result comparisons should only be made within the same method. Urea nitrogen [Mass/Vol] 10 mg/dL 6 - 23 [facility] Work Phone: Laboratory - Hematology and Cell countson 12-31-2021 Erythrocyte distribution width (RBC) [Ratio] 13.8 % See Below [facility] Work Phone: Comment on above: Reference Range: 11. 5 - 14.5 Hematocrit (Bld) [Volume fraction] 43.3 % See Below [facility] Work Phone: Comment on above: Reference Range: 36. 0 - 46.0 Hemoglobin (Bld) [Mass/Vol] 14.7 g/dL See Below [facility] Work Phone: Comment on above: Reference Range: 12. 0 - 16.0 MCHC (RBC) [Mass/Vol] 34.0 g/dL See Below [facility] Work Phone: Comment on above: Reference Range: 32. 0 - 36.0 MCV (RBC) [Entitic vol] 92 fL 80 - 100 [facility] Work Phone: Platelets (Bld) [#/Vol] 187 10*3/uL 150 - 450 [facility] Work Phone: RBC (Bld) [#/Vol] 4.69 {x10E12/L} See Below [facility] Work Phone: Comment on above: Reference Range: 4.0 0 - 5.20 WBC (Bld) [#/Vol] 11.6 10*3/uL above high threshold 4.4 - 11.3 [facility] Work Phone: Lipid Panelon 12-31-2021 Cholesterol [Mass/Vol] 170 mg/dL 0 - 199 [facility] Work Phone: Comment on above: . [...] dosing. Cholesterol in HDL [Mass/Vol] 50.0 mg/dL [facility] Work Phone: Comment on above: . AGE VERY LOW LOW N ORMAL HIGH 0-19 Y < 35 < 40 40-45 ---- 20-24 Y ---- < 40 >45 ---- >24 Y ---- < 40 40-60 >60. Cholesterol in LDL [Mass/Vol] 102 mg/dL above high threshold 0 - 99 [facility] Work Phone: Comment on above: . NEAR BORD AGE FAUSTO RABLE OPTIMAL HIGH HIGH VERY HIGH 0-19 Y 0 - 109 --- 110-129 >/= 130 ---- 20-24 Y 0 - 119 --- 120-159 >/= 160 ---- >24 Y 0 - 99 100-129 130-159 160-189 >/=190. Cholesterol.total/Chol esterol in HDL [Mass ratio] 3.4 {ratio} [facility] Work Phone: Comment on above: REF VALUESDESIRABLE < 3.4HIGH RISK > 5.0 Triglyceride [Mass/Vol] 89 mg/dL 0 - 149 [facility] Work Phone: Comment on above: [...] Lipid Panel 18 mg/dL 0 - 40 [facility] Work Phone: No Panel Informationon 12-31 >90 >90 [facility] [employer] Phone: Comment on above: CALCULATIONS OF OZZY MATED GFR ARE PERFORMED USING THE 2020 CKD-EPI STUDY REFIT EQUATION WITHOUT THE RACE VARIABLE FOR THE IDMS-TRACEABLE CREATININE METHODS.https://jasn.asnjournals.org/content/early//A SN.7876092606 Office Visit ([facility])on 12-31-2021 Follow-up visit Diagnoses/Problems Encounter [...] if cardiac testing is normal. 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 Adult Risk Screening Tobacco Screening: MAYO [...] Qn 0.90 m[IU]/L Normal 0.44 - 3.98 [facility] Comment on above: Result Comment: TSH testing is performed using different testing methodology at [facility] than at other [facility]. Direct result comparisons should only be made within the same method. Performed By: #### T HYDS #### [place] [id number] Tobacco Screening.on Tobacco use status CPHS a) Yes [facility] Work Phone: Tobacco Screening. Yes [facility] Work Phone: VITAMIN B12on 12-31-2021 Cobalamin (Vitamin B12) [Mass/Vol] 219 pg/mL Normal 211 - 911 [facility] Comment on above: Performed By: #### V TB12 #### [place] [id number] VITAMIN D, 25-HYDROXYon VITAMIN D, 25-HYDROXY 39 ng/mL Normal [facility] Comment on above: Result Comment: . DEFICIENCY: < 20 NG/ML INSUFFICIENCY: 20-29 NG/ML SUFFICIENCY: 30-100 NG/ML THIS ASSAY ACCURATELY QUANTIFIES THE SUM OF VITAMIN D3, 25-HYDROXY AND VIT D2,25-HYDROXY. Performed By: #### V TDOH #### [address] [address] Vitamin B12, Serumon 022 Cobalamin (Vitamin B12) [Mass/Vol] 219 pg/mL 211 - 911 [facility] Work Phone: Vitamin D 25-Hydroxyon 12-31 25-hydroxyvitamin D3 [Mass/Vol] 39 ng/mL [facility] Work Phone: Comment on above: .DEFICIENCY: < 20 NG /MLINSUFFICIENCY: 20-29 NG/MLSUFFICIENCY: 30-100 NG/MLTHIS ASSAY ACCURATELY QUANTIFIES THE SUM OFVITAMIN D3, 25-HYDROXY AND VIT D2,25-HYDROXY. Phone Msgon 06-23-2018 Phone Msg - From: Anjali Stephenson MA Sent: 06/23/2018 13:40:39 EDT Subject: echo results left message test was ok no significant changes per Dr. Candelairo [facility] Amb Office-Progress Notes-Pr ovideron 06-16-2018 Protein mass [...] 34 Years. Social History Social & Psychosocial YogkihXsoldzs82/02/2017 Use: Current Frequency: 1-2 times per oxqhjQnfkm81/02/2017 Name: CAFFIENE Comment: 6 CUPS COFFEE DAILY - 06/01/2017 15:28 - Anjali Stephenson MA SSubstance Abuse06/01/2017 Risk Assessment: Denies Substance MklmfHmmhyfr26/02/2017 Use: 5-9 cigarettes (between 1 Type: Cigarettes. [...] needed.Electronically signed by Dr. Effie Diaz. Normal [facility] Provider Letter - Ambulatory on 06-16-2018 Protein mass conc HEIDI SR, [address] [address]WD: MAYO HORTA - 1980Helen HEIDI ORIN This [...] this document, please contact the office.Sincerely,JOE STERLING, [facility] Community HospitalThe following document(s) were included in the letter:June 16, 2018 09:33:00 EDT - (06/16/2018) Cardiology Office Note with BMI Normal [facility] Vital Signs Date Time Vital Sign Value Performing Clinician Nia mann 02-08-2025 07:47-0400 Body mass index (BMI) [Ratio] 27.9 kg/m2 Dr. Deborah Badillo MD Work Phone: [facility] 02-08-2025 07:47-0400 Body temperature 97.5 [degF] Dr. Deborah Badillo MD Work Phone: [facility] 02-08-2025 07:47-0400 Body weight 67.[address] Deborah Badillo MD Work Phone: [facility] 02-08-2025 07:47-0400 Diastolic blood pressure 77 mm[Hg] Dr. Deborah Badillo MD Work Phone: [facility] 02-08-2025 07:47-0400 Heart rate 79 /min Dr. Deborah Badillo MD Work Phone: [facility] 02-08-2025 07:47-0400 Respiratory rate 16 /min Dr. Deborah Badillo MD Work Phone: [facility] 02-08-2025 07:47-0400 SaO2% (BldA) [Mass fraction] 99 % Dr. Deborah Badillo MD Work Phone: [facility] 02-08-2025 07:47-0400 Systolic blood pressure 114 mm[Hg] Dr. Deborah Badillo MD Work Phone: [facility] 02-03-2025 08:10-0400 Body temperature 98.2 [degF] Dr. Deborah Badillo MD Work Phone: [facility] 02-03-2025 08:10-0400 Diastolic blood pressure 70 mm[Hg] Dr. Deborah Badillo MD Work Phone: 4(134)042-272657 [place] [address] 02-03-2025 08:10-0400 Heart rate 63 /min Dr. Deborah Badillo MD Work Phone: 2(489)726-842157 [place] [address] 02-03-2025 08:10-0400 Respiratory rate 16 /min Dr. Deborah Badillo MD Work Phone: 6(132)814-665057 [place] [address] 02-03-2025 08:10-0400 SaO2% (BldA) [Mass fraction] 99 % Dr. Deborah Badillo MD Work Phone: 0(151)111-437757 [place] [address] 02-03-2025 08:10-0400 Systolic blood pressure 105 mm[Hg] Dr. Deborah Badillo MD Work Phone: 3(637)682-318757 [place] [address] 02-03-2025 06:57-0400 Body height 154.[address] Deborah Badillo MD Work Phone: 9(783)525-688557 [place] [address] 02-03-2025 06:57-0400 Body mass index (BMI) [Ratio] 27.1 kg/m2 Dr. Deborah Badillo MD Work Phone: 5(683)192-878157 [place] [address] 02-03-2025 06:57-0400 Body weight 65.[address] Deborah Badillo MD Work Phone: 9(513)120-208557 [place] [address] 01-11-2025 08:42-0400 Body height 154.[address] Deborah Badillo MD Work Phone: 2(715)808-895257 [place] [address] 01-11-2025 08:42-0400 Body mass index (BMI) [Ratio] 28.1 kg/m2 Dr. Deborah Badillo MD Work Phone: 2(860)833-949757 [place] [address] 01-11-2025 08:42-0400 Body weight 67.[address] Deborah Badillo MD Work Phone: [facility] 01-11-2025 08:42-0400 Diastolic blood pressure 77 mm[Hg] Dr. Deborah Badillo MD Work Phone: [facility] 01-11-2025 08:42-0400 Heart rate 80 /min Dr. Deborah Badillo MD Work Phone: [facility] 01-11-2025 08:42-0400 Respiratory rate 17 /min Dr. Deborah Badillo MD Work Phone: [facility] 01-11-2025 08:42-0400 SaO2% (BldA) [Mass fraction] 98 % Dr. Deborah Badillo MD Work Phone: [facility] 01-11-2025 08:42-0400 Systolic blood pressure 117 mm[Hg] Dr. Deborah Badillo MD Work Phone: [facility] 01-09-2025 08:02-0400 Body mass index (BMI) [Ratio] 28.2 kg/m2 Dr. Deborah Badillo MD Work Phone: [facility] 01-09-2025 08:02-0400 Body weight 67.[address] Deborah Badillo MD Work Phone: [facility] 01-09-2025 08:02-0400 Diastolic blood pressure 79 mm[Hg] Dr. Deborah Badillo MD Work Phone: [facility] 01-09-2025 08:02-0400 Systolic blood pressure 141 mm[Hg] Dr. Deborah Badillo MD Work Phone: [facility] 05-21-2023 10:53-0400 Body height 157.5 cm Syeda Tripp APRN-CURT Work Phone: [facility] 05-21-2023 10:53-0400 Body mass index (BMI) [Ratio] 26.76 kg/m2 Syeda [place] ARCHEOLOGIST-CHIEF TECHNICIAN X RAY Work Phone: [facility] 05-21-2023 10:53-0400 Body temperature 97.11 [degF] Syeda Tripp ARCHEOLOGIST-CHIEF TECHNICIAN X RAY Work Phone: [facility] 05-21-2023 10:53-0400 Body weight 66.36 kg Syeda Tripp ARCHEOLOGIST-CHIEF TECHNICIAN X RAY Work Phone: [facility] 05-21-2023 10:53-0400 Diastolic blood pressure 77 mm[Hg] Syeda Tripp ARCHEOLOGIST-CHIEF TECHNICIAN X RAY Work Phone: [facility] 05-21-2023 10:53-0400 Heart rate 72 /min Syeda Tripp ARCHEOLOGIST-CHIEF TECHNICIAN X RAY Work Phone: [facility] 05-21-2023 10:53-0400 Systolic blood pressure 106 mm[Hg] Syead Tripp ARCHEOLOGIST-CHIEF TECHNICIAN X RAY Work Phone: [facility] 03-27-2022 08:03-0400 Body height 157.48 cm Syeda Stilld Work Phone: -[facility] Work Phone: 03-27-2022 08:03-0400 Body mass index (BMI) [Ratio] 27.14 kg/m2 Syeda Stilld Work Phone: [facility] Work Phone: 03-27-2022 08:03-0400 Body surface area Derived from formula 1.68 m2 Syeda Stilld Work Phone: -[facility] Work Phone: 03-27-2022 08:03-0400 Body temperature 98.1 [degF] Syeda Stilld Work Phone: -[facility] Work Phone: 03-27-2022 08:03-0400 Body weight 67.31 kg Syeda Stilld Work Phone: -[facility] Work Phone: 03-27-2022 08:03-0400 Diastolic blood pressure 85 mm[Hg] Syeda Raines [place] Work Phone: [facility] Work Phone: 03-27-2022 08:03-0400 Heart rate 102 /min Syeda Raines [place] Work Phone: [facility] Work Phone: 03-27-2022 08:03-0400 Systolic blood pressure 119 mm[Hg] Syeda Raines [place] Work Phone: [facility] Work Phone: 02-27-2022 13:20-0400 Body height 157.48 cm Syeda Raines [place] Work Phone: [facility] Work Phone: 02-27-2022 13:20-0400 Body mass index (BMI) [Ratio] 27.33 kg/m2 Syeda Raines [place] Work Phone: [facility] Work Phone: 02-27-2022 13:20-0400 Body surface area Derived from formula 1.69 m2 Syeda Stilld Work Phone: [facility] Work Phone: 02-27-2022 13:20-0400 Body weight 67.79 kg Syeda Raines [place] Work Phone: [facility] Work Phone: 02-27-2022 13:20-0400 Diastolic blood pressure 70 mm[Hg] Syeda Raines [place] Work Phone: [facility] Work Phone: 02-27-2022 13:20-0400 Heart rate 68 /min Syeda Raines [place] Work Phone: [facility] Work Phone: 02-27-2022 13:20-0400 Systolic blood pressure 112 mm[Hg] Syeda Tripp Work Phone: [facility] Work Phone: 01-28-2022 08:57-0400 Body height 157.48 cm Syeda Stilld Work Phone: [facility] Work Phone: 01-28-2022 08:57-0400 Body mass index (BMI) [Ratio] 27.98 kg/m2 Syeda Stilld Work Phone: [facility] Work Phone: 01-28-2022 08:57-0400 Body surface area Derived from formula 1.71 m2 Syeda Stilld Work Phone: [facility] Work Phone: 01-28-2022 08:57-0400 Body temperature 98.3 [degF] Syeda Stilld Work Phone: [facility] Work Phone: 01-28-2022 08:57-0400 Body weight 69.4 kg Syeda Tripp Work Phone: [facility] Work Phone: 01-28-2022 08:57-0400 Diastolic blood pressure 90 mm[Hg] Syeda Stilld Work Phone: [facility] Work Phone: 01-28-2022 08:57-0400 Heart rate 67 /min Syeda Stilld Work Phone: [facility] Work Phone: 01-28-2022 08:57-0400 Respiratory rate 18 /min Syeda Stilld Work Phone: [facility] Work Phone: 01-28-2022 08:57-0400 SaO2% (BldA) [Mass fraction] 99 % Syead Stilld Work Phone: [facility] Work Phone: 01-28-2022 08:57-0400 Systolic blood pressure 126 mm[Hg] Syeda Stilld Work Phone: [facility] Work Phone: 12-31-2021 09:33-0400 Body height 158.75 cm Syeda Stilld Work Phone: [facility] Work Phone: 12-31-2021 09:33-0400 Body mass index (BMI) [Ratio] 27.98 kg/m2 Syeda Stilld Work Phone: [facility] Work Phone: 12-31-2021 09:33-0400 Body surface area Derived from formula 1.73 m2 Syeda Stilld Work Phone: [facility] Work Phone: 12-31-2021 09:33-0400 Body weight 70.51 kg Syeda Stilld Work Phone: [facility] Work Phone: 12-31-2021 09:33-0400 Diastolic blood pressure 92 mm[Hg] Syeda Stilld Work Phone: [facility] Work Phone: 12-31-2021 09:33-0400 Heart rate 76 /min Syeda Stilld Work Phone: [facility] Work Phone: 12-31-2021 09:33-0400 Systolic blood pressure 132 mm[Hg] Syeda Raines [place] Work Phone: [facility] Work Phone: Encounters Encounter Date Encounter Type Care Provider Facility Start: 03-15-2025 ambulatory No Primary Car e Physician Facility:[facility] Start: 03-01-2025 ambulatory Deborah Kramer [facility]ity:[facility] Start: 02-08-2025 End: 02-08-2025 Patient encounter procedure Carmen SERRA -[facility] Work Phone: Start: 02-08-2025 End: 02-08-[address] Deborah Badillo MD Work Phone: [facility] Work Phone: Start: 02-03-2025 Non-patient / Non-visit Dr. Jack Arredondo [facility] -[facility] Start: 02-03-2025 End: 02-03-2025 Admission to same day surgery center Dr. Jack Arredondo MD -Endoscopy Work Phone: Start: 02-03-2025 End: 02-03-[address] Deborah Badillo MD Work Phone: [facility] Work Phone: Start: 01-11-2025 End: 01-11-[address] Jack Arredondo MD -[facility] Work Phone: Start: 01-11-2025 End: 01-11-[address] Deborah Badillo MD Work Phone: [facility] Work Phone: Start: 01-10-2025 End: 01-10-[address] Deborah Badillo MD Work Phone: [facility] Work Phone: Start: 01-10-2025 End: 01-10-[address] Deborah Badillo MD -Lab, [facility] Start: 01-09-2025 End: 01-10-[address] Deborah Badillo MD Work Phone: [facility] Work Phone: Start: 01-09-2025 End: 01-09-[address] Deborah Badillo MD -Laboratory, Specimen Work Phone: Start: 01-09-2025 End: 01-09-[address] Deborah Badillo MD -[facility] Work Phone: Start: 01-09-2025 End: 01-09-[address] [facility] Start: 01-09-2025 End: 01-09-2025 ambulatory Deborah Badillo Facility:[facility] Start: 01-09-2025 End: 01-09-2025 ambulatory Deborah Badillo Facility:[facility] Start: 05-21-2023 End: 05-21-2023 Office outpatient visit 15 minutes Syeda Tripp ARCHEOLOGIST-CHIEF TECHNICIAN X RAY Work Phone: [facility] Comment on above: Loud snoring (Primar y Dx); Daytime sleepiness; Urticaria Start: 05-21-2023 End: 05-21-2023 ambulatory [facility] Start: 05-20-2023 End: 05-21-2023 ambulatory [facility] Start: 11-28-2022 End: 11-28-2022 ambulatory [facility] Start: 11-22-2022 End: 11-25-2022 ambulatory [facility] Start: 11-21-2022 End: 11-22-2022 ambulatory [facility] Start: 04-21-2022 AUDIT Syedatigist Tripp Work Phone: [facility] Work Phone: Start: 04-17-2022 Chart Update Syeda L Josee Work Phone: [facility] Work Phone: Start: 02-27-2022 Office outpatient vi sit 15 minutes Syeda L Josee Work Phone: [facility] Work Phone: Start: 01-28-2022 Office outpatient vi sit 15 minutes Syeda Stilld Work Phone: [facility] Work Phone: Start: 01-22-2022 ECHO, Provider: WALTER PINA ECHO 1,SMCECHO1, Status: Pen, Time: 8:00 AM Syeda Tripp Work Phone: [facility] Work Phone: Start: 01-21-2022 AUDIT Syeda Tripp Work Phone: [facility] Work Phone: Start: 01-02-2022 Chart Update Syeda Tripp Work Phone: [facility] Work Phone: Start: 12-31-2021 Patient encounter procedure Syeda Tripp Work Phone: [facility] Work Phone: Start: 12-31-2021 Tobacco use cessatio n intermediate 3-10 minutes Syeda Tripp Work Phone: [facility] Work Phone: Start: 06-23-2018 Patient encounter HEIDI SR Facility:[facility] Start: 06-22-2018 End: 06-23-2018 Patient encounter [facility] Start: 06-16-2018 End: 06-17-2018 Patient encounter [facility] Facility:[facility] Procedures Date Procedure Procedure Detail Performing Clinician [...] therefore, no HPV testing was performed.Performed at: [facility] [place] [id number] Director: Amy Ball MD, Phone: [phone] Start: 05-20-2023 CBC W Auto Different ial [...] SYEDA JOSEE Start: 01-22-2022 Echocardiography Syeda L [place] Work Phone: Start: 12-31-2021 Lipid 1996 panel - S lee or Plasma Syeda [place] ARCHEOLOGIST-CHIEF TECHNICIAN X RAY Work Phone: Start: 07-18-2004 Microscopic observat ion [Identifier] in Cervix by Cyto stain Syeda Stilld ARCHEOLOGIST-CHIEF TECHNICIAN X RAY Work Phone: Excision of bunion Syeda L L add Work Phone: Hysterectomy Syeda L [place] Work Phone: Plan of Treatment Date Care Activity Detail Author Start: 2029 Zoster Vaccines (1 of 2) Zoste r Vaccines (1 of 2) [facility] Start: 12-31-2026 Lipid panel Lipid Panel [facility] Start: 02-03-2025 Patient discharge [facility] Start: 01-09-2025 Patient referral [facility] Work Phone: Start: 01-09-2025 Liquid based cervica l cytology screening [facility] Start: 05-21-2023 End: 05-21-2024 Home sleep apnea test (HSAT) Home sleep apnea test (HSAT) Sleep Center Routine Loud snoring Daytime sleepiness Expected: 05/21/2023 (Approximate), Expires: 05/21/2024 [facility] Service Area Work Phone: Comment on above: Expected: 05/21/2023 (Approximate), Expires: 05/21/2024 Start: 05-01-2023 Influenza vaccination Influenz a Vaccine (#1) [facility] Start: 03-27-2022 FUV, Provider: Syeda Tripp, Status: Pen, Time: 1:30 PM FUV, Provider: Syeda Tripp, Status: Pen, Time: 1:30 PM [facility] Work Phone: Start: 11-28-2020 COVID-19 Vaccine (2 - Pfizer series) COVID-19 Vaccine (2 - Pfizer series) [facility] Start: 2019 Screening for malign ant neoplasm of breast Mammogram [facility] Start: 12-14-2007 MMR Vaccines (1 of 1 - Standard series) MMR Vaccines (1 of 1 - Standard series) [facility] Start: 07-18-2007 Screening for malign ant neoplasm of cervix [facility] Start: 2001 DTaP/Tdap/Td Vaccine s (1 - Tdap) DTaP/Tdap/Td Vaccines (1 - Tdap) [facility] Start: 2000 Screening for malign ant neoplasm of cervix HPV/Cotest [facility] Start: 1997 Diabetes mellitus screening Diabetes Screening [facility] Start: 1997 Hepatitis C screening Hepatiti s C Screening [facility] Start: 1979 Hepatitis B Vaccines (1 of 3 - 3-dose series) Hepatitis B Vaccines (1 of 3 - 3-dose series) [facility] Start: 1979 HIV screening HIV Screening [facility] Start: 1979 Yearly Adult Physical Yearly A dult Physical [facility] Colonoscopy [facility] MG Breast - bilatera l Screening [facility] Path report.final Dx Spec Wo davonte [facility] Patient referral [facility] Work Phone: Polysomnography [facility] Immunizations Immunization Date Immunization Notes Care Provider Fa cility 07-01-2023 influenza, injectabl e, quadrivalent, preservative free Dr. Deborah Badillo MD Work Phone: [facility] 10-03-2020 Pfizer-BioNTech COVID-19 Vacc 30 MCG/0.3ML Intramuscular Suspension Syeda Raines [place] Work Phone: [facility] Work Phone: 11-16-2007 varicella virus vaccine Adelina nghia Tripp Work Phone: [facility] Work Phone: Payers Date Payer Category Payer Self-pay 2017 Private Health Insurance [employer] [facility] [id number] 2017-Present [address] [place] [address] [id number] 2017 Private Health Insurance [id number] 2008 Private Health Insurance [id number] 1979 Unknown [id number] [id number] .159 1979 Unknown [id number] 2.16.840.1.502692.3.579.2 .159 1979 Unknown [id number] 2.16.840.1.908285.3.579.2 .159 1979 Unknown [id number] 2.16.840.1.065132.3.579.2 .1245 1979 Unknown [id number] 2.16.840.1.084851.3.579.2 .1245 1979 Unknown [id number] 2.16.840.1.088672.3.579.2 .1244 1979 Unknown [id number] 2.16.840.1.997680.3.579.2 .1244 1979 Unknown [id number] 2.16.840.1.015864.3.579.2 .1244 Unknown [employer] Unknown [id number] 2.16.840.1.281609.3.579.2 .462 Unknown [id number] 2.16.840.1.876599.3.579.2 .462 Unknown [id number] 2.16.840.1.371541.3.579.2 .462 Unknown [id number] 2.16.840.1.177505.3.579.2 .462 Unknown [id number] 2.16.840.1.348842.3.579.2 .462 Unknown [id number] 2.16.840.1.187097.3.579.2 .462 Unknown [id number] 2.16.840.1.163190.3.579.2 .462 Unknown [id number] 2.16.840.1.152588.3.579.2 .462 Unknown [id number] 2.16.840.1.365026.3.579.2 .462 Social History Date Type Detail Facility Current every day smoker Current every day smoker [facility] Work Phone: Tobacco smoking status [facility] Tobacco smoking consumption unknown [facility] Work Phone: Start: 1980 Sex Assigned At Not on file [facility] Work Phone: Gender identity Not on file [facility] Work Phone: Start: 01-04-2025 End: 02-01-2025 Tobacco smoking status NHIS Ex-smoker (finding) [facility] Start: 1980 Sex Assigned At Female [facility] NEGATED: Highlighted row Not [facility] Goals Date Patient Goal Desired Activity /State Mental Status Date Assessment Result Facility 02-03-2025 Cognitive function Voice/Name [facility] Work Phone: Clinical Notes 01-27-2022 to 02-03-2025 Note Date & Type Note Facility 02-03-2025 Consult note Note Date/Time February 03, 2025 6:37a m [facility] Medical Records Department [address] [place] [address] Pre-Anesthesia Evaluation 02/03/25 0636 MR#: [id number] Acct: [id number] Name: MAYO HORTA Rep #:[id number] : 1980 44 From: Tobias Maurer MD PCP: Care Physician,No [place] [facility] [place] C Location: [place] [address] ASA Classification* ASA Classification ASA Classification: 2 [...] Procedure(s): COLONOSCOPY Anesthesia History 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: 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 Hx Hospitalization No 02/01/25 14:11 Any Problems [...] take am of surgery PONV PONV - supervisor inspection department: PONV - supervisor inspection department Female Yes 02/01/25 14:11 HX of Motion [...] 01/11/25 08:42 Respiratory Assessment Respiratory Assessment - supervisor inspection department: Respiratory Tract Infection Hx - supervisor inspection department Hx Respiratory Tract Infection No 02/01/25 14:11 STOP Sleep Apnea STOP Sleep Apnea - supervisor inspection department: STOP Sleep Apnea - supervisor inspection department Hx Hypertension No 02/01/25 14:11 Hx Sleep [...] Tobacco Use History Tobacco Use History - supervisor inspection department: Tobacco Use History - supervisor inspection department Tobacco Use Smoking Status Former smoker 02/01/25 14:11 Hx Tobacco Use No 02/01/25 14:11 Years Smoking Packs Smoked per Day Smoking Cessation Date was Yes - quit smoking within 15 02/01/25 14:11 within the last 15 years years Hx Smoking Cessation Date Hx Smoking Cessation Counseling Hematologic Medial History Hematologic Hx - supervisor inspection department: Hematologic Medical Hx - clinical documentation consultant Hx of Blood Transfusion No 02/01/25 14:11 [...] confused, unrespo /Reproduction History /Reproductive History - supervisor inspection department: /Reproductive Hx- supervisor inspection department Hx Now No 02/01/25 14:11 Gestational Age [...] MD Cosigner Signature: Date CC: ~ Signed [facility] Work Phone: 1(731) 541-211206-06-2025 Consult note [facility] Medical Records Department [address] [place] [address] Anesthesia Postop Eval II 02/03/25822 MR#: [id number] Acct: [id number] Name: MAYO HORTA Rep #:[id number] : 1980 44 From: Tobias Maurer MD PCP: Care Physician,No Primary Status :REG SDC Y Race: C Location: [place] [address] Anesthesia Postop Eval I Sum Postop Eval Completion status Anesthesia document: Postop Eval 1 completed: Yes Anesthesia Postop Eval I Summary Anesthesia Postop Eval I Summary: Anesthesia Postop Eval I: Assessment Summary Airway patent Yes 02/03/25 07:57 PAPER INSPECTOR.SOBR Spontaneous unlabored Yes 02/03/25 07:57 PAPER INSPECTOR.SOBR respirations Mental status Awake 02/03/25 07:57 PAPER INSPECTOR.SOBR nausea No 02/03/25 07:57 PAPER INSPECTOR.SOBR Vomiting No 02/03/25 07:57 PAPER INSPECTOR.SOBR Anesthesia Postop Eval I: Fluid Summary Crystalloid volume administer 500 02/03/25 07:57 PAPER INSPECTOR.SOBR (ml) Colloids volume administered ( ml) Blood Product volume administered (ml) Total IV fluid infused 500 02/03/25 07:57 PAPER INSPECTOR.SOBR Anesthesia Postop Eval I: Summary Notes Anesthesia Complication No 02/03/25 07:57 PAPER INSPECTOR.SOBR Anesthesia Complication Comment: Post-operative progress note Anesthesia: Postop Eval II Evaluation Mental status: Awake Pain Level: 0 nausea: No Vomiting: No 02/03/25 0824 > Date _ Tobias Maurer MD Cosigner Signature: Date CC: ~ Signed [facility]06[facility]2025 Procedure note [facility] Medical Records Department [address] [place] [address] Colonoscopy Report MR#: [id number] Acct: [id number] Name: MAYO HORTA Rep #:[id number] : 1980 44 From: Jack Arredondo MD [...] present medications. Procedure Code(s): --- Professional --- 89364, Colonoscopy, flexible; diagnostic, including collection of specimen(s) by brushing or washing, when performed (separate procedure) Diagnosis Code(s): --- Professional --- K64.8, Other hemorrhoids Z80.0, Family history of malignant neoplasm of digestive organs CPT copyright 2021 [employer]. All rights reserved. The codes documented in this report are preliminary and upon manager parking review may be revised to meet current compliance requirements. Jack Arredondo MD 02/03/2025 8:05:55 AM This report has been signed electronically. Number of Addenda: 0 Note Initiated On: 02/03/2025 7:14 AM 02/03/25805 Date _ Jack Arredondo MD Cosigner Signature: Date (if indicated) CC: Dr. Deborah Badillo MD; Dr. Jack Arredondo MD; No Primary Care Physician ~ Date Dictated: 02/03/2514 Date Transcribed: Car Dryer: SW Signed [facility]06-06-2025 Procedure note [facility] Medical Records Department [address] [place] [address] Operative Report - CC Letter MR#: [id number] Acct: [id number] Name: MAYO HORTA Rep #:[id number] : 1980 44 From: Jack Arredondo MD PCP: Care Physician,No [place] [facility] [place] 02/03/2025 Deborah Badillo [address] [place] [address] Re : Colonoscopy procedure for Mayo Horta [...] Physician ~ Date Dictated: 02/03/25713 Date Transcribed: Car Dryer: GALINDO [facility]06-06-2025 Consult note [facility] Medical Records Department [address] [place] [address] Anesthesia Postop Eval I 02/03/25 0757 MR#: [id number] Acct: [id number] Name: MAYO HORTA Rep #:[id number] : 1980 44 From: Raoul REYES PCP: Care Physician,No Primary Status :REG SDC Y Race: C Location: [place] [address] Anesthesia: Postop Eval I Current Vital Signs [...] Postop Eval 1 completed: Yes 02/03/25 0757 PAPER INSPECTOR> Date _ Raoul Delta PAPER INSPECTOR Cosigner Signature: Date CC: ~ Signed [facility]06-06-2025 History and physical note [facility] Medical Records Department [address] [place] [address] History & Physical Exam 02/03/25716 MR#: [id number] Acct: [id number] Name: MAYO HORTA Rep #:[id number] : 1980 44 From: Jack Arredondo MD PCP: Care Physician,No Primary Status :[facility] Location: [place] [address] HPI - General General Date of Admission: [...] upper quadrant pain that sheattributesto her gallbladder. [facility] Medical History Wears contact lenses Wears glasses [...] Arredondo MD; No Primary Care Physician~ Signed [facility]06-06-2025 [facility] Medical Records Department [address] [place] [address] History Physical Exam 02/03/25 0717 MR#: [id number] Acct: [id number] Name: MAYO HORTA Rep #: [id number] : 1980 44 From: Jack Arredondo MD PCP: Care Physician,No Primary Status:[facility] Location: [place] [address] HPI - General General Date of Admission: [...] pain that she attributes to her gallbladder. 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: 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 Hx Hospitalization No 02/01/25 14:11 Any Problems [...] take am of surgery PONV PONV - supervisor inspection department: PONV - supervisor inspection department Female Yes 02/01/25 14:11 HX of Motion [...] 01/11/25 08:42 Respiratory Assessment Respiratory Assessment - supervisor inspection department: Respiratory Tract Infection Hx - supervisor inspection department Hx Respiratory Tract Infection No 02/01/25 14:11 STOP Sleep Apnea STOP Sleep Apnea - supervisor inspection department: STOP Sleep Apnea - supervisor inspection department Hx Hypertension No 02/01/25 14:11 Hx Sleep [...] Tobacco Use History Tobacco Use History - supervisor inspection department: Tobacco Use History - supervisor inspection department Tobacco Use Smoking Status Former smoker 02/01/25 14:11 Hx Tobacco Use No 02/01/25 14:11 Years Smoking Packs Smoked per Day Smoking Cessation Date was Yes - quit smoking within 15 02/01/25 14:11 within the last 15 years years Hx Smoking Cessation Date Hx Smoking Cessation Counseling Hematologic Medial History Hematologic Hx - supervisor inspection department: Hematologic Medical Hx - clinical documentation consultant Hx of Blood Transfusion No 02/01/25 14:11 [...] confused, unrespo /Reproduction History /Reproductive History - supervisor inspection department: /Reproductive Hx- supervisor inspection department Hx Now No 02/01/25 14:11 Gestational Age (in weeks): EDC: Hx Hx Para Hx Section SAB No 02/01/25 14:11 [facility] Medical History Wears contact lenses Wears glasses [...] Tobias Chisholm Signature: Date CC: ~ Signed [facility]05-14-2025 Hospital Discharge instructionsAmbulatory Orders* Colonoscopy Time Frame: 01/11/25, Location: Determined By Patient [facility] Work Phone: 1(376) 292-102605-12-2025 Evaluation note* Diagnosis Onset Date Resolution Status Admit Date Family history of colon cancer acute January 09, 2025 7:47am Encounter for routine gynecological examination noneactive January 092024 7:47am [facility] Work Phone: 1(338) [phone] Evaluation note* Diagnosis Onset Date Resolution Status Admit Date Family history of colon cancer acute January 09, 2025 7:47am Encounter for routine gynecological examination noneactive January 092024 7:47am Encounter for screening for malignant neoplasm of colon acute January 11, 2025 8:24am Family history of colon cancer acute January 11, 2025 8:24am [facility] Work Phone: 1(772) 747-520405-12-2025 Evaluation note* Diagnosis Onset Date Resolution Status [...] colon cancer acute February 03, 2025 6:31am [facility] Work Phone: 1([phone]) 501-845005-12-2025 Evaluation note* Diagnosis Onset Date Resolution Status [...] Daytime hypersomnia acute February 08, 2025 8:04am [facility] Work Phone: 1(737) 948-328209-21-2023 History of Present illness Narrative* Syeda Yanna Tripp, ARCHEOLOGIST-CHIEF TECHNICIAN X RAY - 05/21/2023 3:00 PM EDT Subjective Patient [...] worsened over the years No prior testing, imaging clerk, or medication Review of Systems Constitutional: Positive [...] depending on test result documented in this [facility] Work Phone: 1(548) 816-572305-30-2022 History of Present illness Narrative* Mayo is a 41 yo female her today to follow up on weight management. Mayo reports 7 lb weight lossover last month. She continue to follow low sugar, low calorie healthy diet. She is exercising 4-5 times a week. * She is frustrated with weight loss was hoping for more. Encouragement given. [facility] Work Phone: 1([phone]) 218-236005-30-2022 History of Present illness Narrative* Mayo is a 41 yo female her today to follow up on weight management. Mayo reports 7 lb weight lossover last month. She continue to follow low sugar, low calorie healthy diet. She is exercising 4-5 times a week. * She is frustrated with weight loss was hoping for more. Encouragement given. [facility] Work Phone: consult note Author Raoul Way [facility] Note Date/Time February 03, 2025 7:57a m [facility] Medical Records Department [address] [place] [address] Anesthesia Postop Eval I 02/03/25 0757 MR#: [id number] Acct: [id number] Name: MAYO HORTA Rep #:[id number] : 1980 44 From: Raoul REYES PCP: Care Physician,No Primary Status :REG SDC Y Race: C Location: [place] [address] Anesthesia: Postop Eval I Current Vital Signs [...] 02/03/25 0757 <Electronically signed by Raoul Way PAPER INSPECTOR> Date _ Raoul Way PAPER INSPECTOR Cosigner Signature: Date CC: ~ Signed [facility] Work Phone: Consult note Author Tobias Maurer [facility] Note Date/Time February 03, 2025 8:24a m [facility] Medical Records Department [address] [place] [address] Anesthesia Postop Eval II 02/03/25822 MR#: [id number] Acct: [id number] Name: MAYO HORTA Rep #:[id number] : 1980 44 From: Tobias Maurer MD PCP: Care Physician,No [place] [facility] [place] C Location: [place] [address] Anesthesia Postop Eval I Sum Postop Eval Completion status Anesthesia document: Postop Eval 1 completed: Yes Anesthesia Postop Eval I Summary Anesthesia Postop Eval I Summary: Anesthesia Postop Eval I: Assessment Summary Airway patent Yes 02/03/25 07:57 PAPER INSPECTOR.SOBR Spontaneous unlabored Yes 02/03/25 07:57 PAPER INSPECTOR.SOBR respirations Mental status Awake 02/03/25 07:57 PAPER INSPECTOR.SOBR nausea No 02/03/25 07:57 PAPER INSPECTOR.SOBR Vomiting No 02/03/25 07:57 PAPER INSPECTOR.SOBR Anesthesia Postop Eval I: Fluid Summary Crystalloid volume administer 500 02/03/25 07:57 PAPER INSPECTOR.SOBR (ml) Colloids volume administered ( ml) Blood Product volume administered (ml) Total IV fluid infused 500 02/03/25 07:57 PAPER INSPECTOR.SOBR Anesthesia Postop Eval I: Summary Notes Anesthesia Complication No 02/03/25 07:57 PAPER INSPECTOR.SOBR Anesthesia Complication Comment: Post-operative progress note Anesthesia: Postop Eval II Evaluation Mental status: Awake Pain Level: 0 nausea: No Vomiting: No 02/03/25 0824 <Electronically signed by Tobias Maurer MD > Date _ Tobias Maurer MD Cosigner Signature: Date CC: ~ Signed [facility] Work Phone: Evaluation note* Diagnosis Loud snoring- Primary Daytime sleepiness Urticaria Unspecified urticaria documented in this encounter [facility] Work Phone: History and physical note Author Jack Arredondo [facility] Note Date/Time February 03, 2025 7:19a m [facility] Medical Records Department [address] [place] [address] History & Physical Exam 02/03/25 0717 MR#: [id number] Acct: [id number] Name: MAYO HORTA Rep #:[id number] : 1980 44 From: Jack Arredondo MD PCP: Care Physician,No Primary Status :[facility] Location: [place] [address] HPI - General General Date of Admission: [...] quadrant pain that sheattributes to her gallbladder. [facility] Medical History Wears contact lenses Wears glasses [...] Arredondo MD; No Primary Care Physician~ Signed [facility] Work Phone: History of Present illness [...] bilateral hip pain from running on treadmill. [facility] Work Phone: History of Present [...] labs and echocardiogram to monitor her cardiomyopathy. [facility] Work Phone: History of Present illness [...] EKG and Echo were in normal range. [facility] Work Phone: Summary Purpose Family History [...] Do you have a Healthcare Power of Print Shop Helper? No February 01, 2025 2:11pm Chief Complaint TEST MANAGER CPX.TEST MANAGER CPX.med check, no concerns.1 month weight check.1 month weight check. Reason for Referral Specialty Diagnoses / Procedures Referred By Contbk t Referred To Contact Sleep Lab Diagnoses Loud snoring Daytime sleepiness Procedures Home sleep apnea test (HSAT) Syeda Tripp, ARCHEOLOGIST-CHIEF TECHNICIAN X RAY [address] [facility], [place] [address] Referral ID Status Reason Start Date Expiration Date V isits Requested Visits Authorized [id number] Pending Review 05/21/2023 11/17/2023 1 1 Chief Complaint and Reason for Visit Chief Complaint Admit Date Annual (WOMEN NURSE) January 09, 2025 7:47a m COLONOSCOPY January [...] 2025 6:31am Chief Complaint Admit Date Annual (WOMEN NURSE) January 09, 2025 7:47a m COLONOSCOPY January [...] section and content) DATE CREATED AUTHOR 07/19/2018 [facility] DATE CREATED AUTHOR AUTHOR'S ORGANIZ ATION 03/30/2022 [facility] DATE CREATED AUTHOR AUTHOR'S ORGANIZ ATION 03/30/2022 [facility] DATE CREATED AUTHOR AUTHOR'S ORGANIZ ATION 05/25/2023 [facility] DATE CREATED AUTHOR AUTHOR'S ORGANIZ ATION 05/25/2023 [facility] DATE CREATED AUTHOR AUTHOR'S ORGANIZ ATION 06/01/2023 [facility] DATE CREATED AUTHOR AUTHOR'S ORGANIZ ATION 02/28/2025 [facility] Reason for Visit (unrecogniz ed section and content) Reason Comments Fatigue Care Teams (unrecognized sec tion and content) Physician/Internist Relationship Specialty Start Date End Date Syeda Tripp, ARCHEOLOGIST-CHIEF TECHNICIAN X RAY [address] [facility], [facility] [address] [place] [phone] PCP - General 12/31/21 Syeda Tripp, ARCHEOLOGIST-CHIEF TECHNICIAN X RAY [address] [facility], [place] [address] [place] [address] PCP - Bishop MANNO PCP 05/01/22 Team [...] Member Role Status Dates Carmen Alvarenga NP, TEST MANAGER-C Attending Provider Active Start: February 08, 2025 [...] BE BASED ON THE PRIMARY CLINICAL RECORDS. [employer] provides no warranty or guarantee of the accuracy or completeness of information in this document.
--- NOTE | 2025-03-01 07:30 | BI_ITS ---
EXAM: SCRN MAMM (CAD)W/JAYY BILAT DATE: 03/01/2025 CLINICAL HISTORY: F, Age 44 y/o , SCREENING FOR BREAST CANCER TECHNIQUE: SCRN MAMM (CAD)W/JAYY BILAT COMPARISON: Baseline examination, no priors FINDINGS: TISSUE DENSITY: The breasts are heterogeneously dense, which may obscure small masses. The mammogram demonstrates that the patient has dense breasts. Supplemental screening with whole breast ultrasound or MRI may be considered for further evaluation. Bilateral Breast Mammographic Findings: No significant masses, calcifications or other abnormalities are identified. BI/SCRN MAMM (CAD)W/JAYY BILAT IMPRESSION: There is no mammographic evidence of malignancy. OVERALL FINAL ASSESSMENT BI-RADS 1: NEGATIVE. RECOMMEND ANNUAL MAMMOGRAPHIC SCREENING. RECOMMENDATION: Routine annual follow-up in 1 Year A letter with findings and recommendations will be mailed to the patient. Reading Location: [id number]
--- NOTE | 2025-03-01 07:30 | BI_ITS ---
EXAM: SCRN MAMM (CAD)W/JAYY BILAT DATE: 03/01/2025 CLINICAL HISTORY: F, Age 44 y/o , SCREENING FOR BREAST CANCER TECHNIQUE: SCRN MAMM (CAD)W/JAYY BILAT COMPARISON: Baseline examination, no priors FINDINGS: TISSUE DENSITY: The breasts are heterogeneously dense, which may obscure small masses. The mammogram demonstrates that the patient has dense breasts. Supplemental screening with whole breast ultrasound or MRI may be considered for further evaluation. Bilateral Breast Mammographic Findings: No significant masses, calcifications or other abnormalities are identified. BI/SCRN MAMM (CAD)W/JAYY BILAT IMPRESSION: There is no mammographic evidence of malignancy. OVERALL FINAL ASSESSMENT BI-RADS 1: NEGATIVE. RECOMMEND ANNUAL MAMMOGRAPHIC SCREENING. RECOMMENDATION: Routine annual follow-up in 1 Year A letter with findings and recommendations will be mailed to the patient. Reading Location: [id number]
== END | disposition home or self-care (01) ==
PROVIDERS: Referring Provider Obstetrics & Gynecology; Visit Provider Obstetrics & Gynecology
DX: Z12.31 Encounter for screening mammogram for malignant neoplasm of breast (principal)
CPT/HCPCS: 77063; 77067